=== PATIENT | male | born 1940 | race Caucasian/White ===

== ENCOUNTER 2021-09-09 16:04 | Inpatient (IN) ==
[2021-09-09 16:31] LABS: iSTAT Hemoglobin 13.6 g/dl (14.0-18.0); iSTAT Ionized Calcium 1.2 mmol/l (1.12-1.32); iSTAT Potassium 3.7 mmol/L (3.3-5.0)
[2021-09-09 16:35] LABS: Basophils # (auto) 0.05 K/uL (0-0.2); Basophils % (auto) 0.8 %; Eosinophils # (auto) 0.32 K/uL (0-0.5); Eosinophils % (auto) 5.4 %; Hemoglobin 12.9 g/dL (14.0-18.0); Lymphocytes # (auto) 2.03 K/uL (1.2-3.4); Lymphocytes % (auto) 34.2 %; Mean Corpuscular Hemoglobin 32.8 pg (25-34); Mean Corpuscular Hgb Conc 33.9 g/dL (32-36); Mean Corpuscular Volume 96.7 fL (80-100); Monocytes # (auto) 0.47 K/uL (0.11-0.59); Monocytes % (auto) 7.9 %; Neutrophils # (auto) 3.07 K/uL (1.4-6.5); Neutrophils % (auto) 51.7 %; Platelet Count 143 K/uL (130-400); RDW Coefficient of Variation 17.3 % (11.5-14.5); RDW Standard Deviation 60.8 fL (36.4-46.3); Red Blood Count 3.93 M/uL (4.7-6.1); White Blood Count 5.94 K/uL (4.8-10.8)
[2021-09-09 16:45] LABS: INR 1.1 (0.9-1.1); Partial Thromboplastin Time 27.6 Seconds (21.0-31.0); Prothrombin Time 11.3 Seconds (9.0-12.0)
[2021-09-09 17:01] LABS: Albumin Level 3.3 gm/dl (3.4-5.0); Bilirubin Direct 0.3 mg/dl (0-0.2); Bilirubin,Total 1.2 mg/dl (0.2-1.0); Calcium 9.3 mg/dl (8.5-10.1); Creatinine Clr Calc Pharmacy 23.3 ml/min; Est GFR (African American) 22.2 ml/min; Est GFR (Non-African American) 19.1 ml/min; Potassium 3.7 mmol/L (3.5-5.1); Total Protein 6.3 gm/dl (6.0-8.3)
[2021-09-09 18:21] LABS: Adenovirus F 40/41 PCR Not Detected (NotDetected); Astrovirus PCR Not Detected (NotDetected); Campylobacter PCR Not Detected (NotDetected); Clostridium diff Toxin A/B PCR Not Detected (NotDetected); Cryptosporidium PCR Not Detected (NotDetected); Cyclospora cayetanensis PCR Not Detected (NotDetected); Entamoeba histolytica PCR Not Detected (NotDetected); Enteroaggregative E.coli(EAEC) Not Detected (NotDetected); Enteropathogenic E.coli (EPEC) Not Detected (NotDetected); Enterotoxigenic E.coli (ETEC) Not Detected (NotDetected); Giardia lamblia PCR Not Detected (NotDetected); Norovirus GI/GII PCR Not Detected (NotDetected); Plesiomonas shigelloides PCR Not Detected (NotDetected); Rotavirus A PCR Not Detected (NotDetected); Salmonella PCR Not Detected (NotDetected); Sapovirus PCR Not Detected (NotDetected); Shiga-like Toxin E.coli (STEC) Not Detected (NotDetected); Shigella/Enteroinvasive E.coli Not Detected (NotDetected); Vibrio cholerae PCR Not Detected (NotDetected); Vibrio species PCR Not Detected (NotDetected); Yersinia enterocolitica PCR Not Detected (NotDetected)
--- NOTE | 2021-09-09 18:51 | History & Physical Report ---
Date of Service September 09, 2021 Assessment & Plan (1) BRBPR (bright red blood per rectum): (2) Anemia: (3) Chronic HFrEF (heart failure with reduced ejection fraction): (4) Stage 4 chronic kidney disease: (5) Hypertension: Plan: This is an 80-year-old male has significant past medical history of chronic HFrEF, nonischemic cardiomyopathy, presumed CAD, history of trifascicular block pacemaker placement in 2010 with device upgraded to biventricular rate responsi ve pacemaker 07/15/2020, HTN, HLD, CKD stage IV with left upper extremity AV fistula, T2DM who presents to ED after experiencing bright red blood per rectum since 1300. BRBPR Anemia due to acute blood loss admit to med tele pt had cscope on 08/27 with large polyp removed, also noted was sigmoid diverticula abd exam benign, no abd pain ? diverticular bleed vs related to polyp removal hgb 12.9, last hgb 04/10 14.0; likely related to blood loss from rectal bleeding NPO gentle IVF 60cc/hr x 1 L consult gastroenterology will place of IV PPI BID for now, but less likely UGIB hold asa for now type and cross and place 1 unit on hold, Blood consent signed in ED H/H @ 2200 Chronic HFrEF hx of trifascicular block s/p PPM HLD HLD continue statin and metoprolol hold asa, lasix for now daily weights euvolemic CKD-4 Acute on Chronic Renal insufficiency LUE fistula in place, baseline 2.4-2.7 bun/cr 62 and 2.95 gentle ivf in setting of renal disease/chf monitor bmp, avoid nephrotoxic agents holding lasix T2DM well controlled, last a1c 6.0 04/19/21 hold actos novolog correction factor protocol ordered DVT ppx: SCDS Dispo: med tele PCP: Andrae FULL CODE Pt was seen and examined in collaboration with Dr. Reece, please see addendum History of Present Illness Chief Complaint: BRBPR since 1300. Primary Care Provider: Anna Abebe MD This is an 80-year-old male has significant past medical history of chronic HFrEF, nonischemic cardiomyopathy, presumed CAD, history of trifascicular block pacemaker placement in 2010 with device upgraded to biventricular rate responsive pacemaker 07/15/2020, HTN, HLD, CKD stage IV with left upper extremity AV fistula, T2DM who presents to ED after experiencing bright red blood per rectum since 1300. He admits to multiple bowel movements with bright red blood. He denies dayne diarrhea, but did have stool mixed with blood. He denies pain with BM or abdominal pain. He had a colonoscopy 2 weeks ago in which a polyp was removed and it showed sigmoid diverticula. He has never had anything like this before. He denies hx of hemorrhoids or diverticulitis. He denies lightheaded, n/v/d, chest pain, sob, f/c/s, dysuria, increased urg/freq with urination, hematuria or melena. He takes a baby ASA daily, last dose yesterday. He does not use any OTC NSAIDS. He is not on any blood thinners. He denies hx of PUD. In ED patient remained hemodynamically stable. His admitting hemoglobin hematocrit was 12.9 and 38.0 respectively. His CMP was remarkable for elevated BUN 62, creatinine 2.95, glucose 128, total bilirubin 1.2, AST 42, alkaline phosphatase 237. His stool PCR was negative. He was typed and screened B positive. Allergies Allergy/AdvReac Type Severity Reaction Status Date / Time lisinopril Allergy Mild ALTERED Verified 08/27/21 09:44 KIDNEY FUNCTIONS Home Medications Medication Instructions Recorded Confirmed Type allopurinol 300 mg tablet 300 mg PO DAILY 09/09/21 09/09/21 History aspirin 81 mg tablet,delayed 81 mg PO DAILY 09/09/21 09/09/21 History release atorvastatin 40 mg tablet 40 mg PO HS 09/09/21 09/09/21 History furosemide 40 mg tablet 20 mg PO DAILY@1400 09/09/21 09/09/21 History furosemide 40 mg tablet 40 mg PO DAILY 09/09/21 09/09/21 History metoprolol succinate 25 mg 25 mg PO BID 09/09/21 09/09/21 History tablet,extended release 24 hr pioglitazone 15 mg tablet 15 mg PO DAILY 09/09/21 09/09/21 History Past Med/Surg History Medical History (Updated 09/09/21 @ 19:52 by Maribeth August PA-C) Chronic heart failure Diabetes mellitus, type 2 NIDDM GERD (gastroesophageal reflux disease) Gout Hearing deficit Hyperlipidemia Hypertension Pacemaker [employer]. 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 Yan. last checked remotely ~05/2021 Shortness of breath on exertion reason for inhaler Stage 4 chronic kidney disease Left UE AVF in place- not on dialysis yet Surgical History History of appendectomy History of colonoscopy History of pacemaker initially placed in 2010, and changed 06/2020 at [facility] Dr Ko History of tooth extraction most teeth removed S/P arteriovenous (AV) fistula creation 2008 left arm Family History (Updated 09/09/21 @ 19:50 by Maribeth August PA-C) Father , 59 Family history of diabetes mellitus Coronary heart disease Mother Cancer Other No family history of adverse response to anesthesia Social History Smoking Status: Former smoker Tobacco Type: Cigarettes Second Hand Exposure: No; Hx Alcohol Use: No Hx Substance Use: No Preferred Language: Finnish Communication Ability: Effective Chief Science Officer Required: No Beliefs That Will Affect Care: None Current Living Situation: Spouse Feels Safe at Home: Yes Assistive Devices: Denture - Upper, Glasses and Hearing Aid - Bilateral Review of Systems Review of Systems: All systems reviewed & are unremarkable except as noted in HPI & below Physical Exam Physical Exam: Please refer to Dr. Reece addendum for physical exam findings. Results & Data Results & Data ([facility]) Vital Signs (Past 12 Hours) Vital Signs Temp Pulse Resp BP Pulse Ox 09/09/21 16:19 95 09/09/21 16:10 37.0 C 77 15 110/77 96 COVID-19 Results Results COVID-19 Adm Lab Results: RBC 3.93 M/uL (4.7-6.1) L 09/09/21 WBC 5.94 K/uL (4.8-10.8) 09/09/21 Hgb 12.9 g/dL (14.0-18.0) L 09/09/21 Hct 38.0 % (42-52) L 09/09/21 Plt Count 143 K/uL (130-400) 09/09/21 Neutrophils (%) (Auto) 51.7 % 09/09/21 Lymphocytes (%) (Auto) 34.2 % 09/09/21 Monocytes # (Auto) 0.47 K/uL (0.11-0.59) 09/09/21 Eosinophils # (Auto) 0.32 K/uL (0-0.5) 09/09/21 Immature Granulocyte % (Auto) 0.0 % 09/09/21 Neutrophils # (Auto) 3.07 K/uL (1.4-6.5) 09/09/21 Lymphocytes # (Auto) 2.03 K/uL (1.2-3.4) 09/09/21 Monocytes # (Auto) 0.47 K/uL (0.11-0.59) 09/09/21 Eosinophils # (Auto) 0.32 K/uL (0-0.5) 09/09/21 Basophils # (Auto) 0.05 K/uL (0-0.2) 09/09/21 Immature Granulocyte # (Auto) 0.00 K/uL (0.00-0.02) 09/09/21 Na 137 mmol/L (136-145) 09/09/21 K 3.7 mmol/L (3.5-5.1) 09/09/21 Cl 102 mmol/L (98-107) 09/09/21 CO2 27 mmol/L (21-32) 09/09/21 Anion Gap 8 (3-11) 09/09/21 BUN 62 mg/dl (6-23) H 09/09/21 Creatinine 2.95 mg/dl (0.6-1.4) H 09/09/21 BUN/Creatinine Ratio 21.0 (10-20) H 09/09/21 Glucose Level 128 mg/dl (70-99(Fasting)) H 09/09/21 Ca 9.3 mg/dl (8.5-10.1) 09/09/21 Total Bilirubin 1.2 mg/dl (0.2-1.0) H 09/09/21 Direct Bilirubin 0.3 mg/dl (0-0.2) H 09/09/21 AST/SGOT 42 U/L (13-39) H 09/09/21 ALT/SGPT 25 U/L (7-52) 09/09/21 Alkaline Phosphatase 237 U/L (34-104) H 09/09/21 Total Protein 6.3 gm/dl (6.0-8.3) 09/09/21 Albumin 3.3 gm/dl (3.4-5.0) L 09/09/21 PTT 27.6 Seconds (21.0-31.0) 09/09/21 INR 1.1 (0.9-1.1) 09/09/21 SARS-CoV-2, RNA, NAAT NEGATIVE (NEGATIVE) 09/09/21 Code Status & VTE Plan Code Status FULL CODE VTE Prophylaxis Plan VTE Prophylaxis will be ordered: Yes Supervising Physician Co-Signing Physician Notes Is an 80-year-old male with history of CHF, CKD stage IV, hypertension, hyperlipidemia, diabetes and other medical problems presents with history of bright red rectal bleeding since today afternoon. He states having multiple faye wel movements but denies any abdominal pain, nausea, vomiting, fever, chills. He denies any NSAIDs use. He is currently not on any anticoagulants. He recently had colonoscopy and had polyps resection and was noted to have sigmoid diverticulosis. Please review HPI for complete details of presentation. Blood work showed hemoglobin 12.9, hematocrit 38, platelet count 143, INR 1.1, sodium 138, potassium 3.7, BUN 52, creatinine 2.9, glucose 128, total bilirubin 1.2, direct bilirubin 1.3, AST 42, alkaline phosphatase 237. Stool studies are negative for any infection. COVID screen is negative. Physical Exam: Vitals signs as noted above General Appearance:Moderately built and nourished, no apparent distress Head: normocephalic, Atraumatic Eyes: normal inspection, EOMI Neck: supple, Trachea midline Respiratory/Chest: Normal breath sounds, CTA, No accessory muscle use Cardiovascular: S1, S2, No murmur Abdomen/GI:Soft, mild suprapubic tender, Bowel sounds present Extremities/Musculoskeletal:normal inspection, 2+ B/L LE edema Neurologic/Psych:AAOX3, grossly no focal neurological deficits Skin: normal color, warm Rectal Bleeding Acute on chronic blood loss anemia Likely diverticular bleed Hold aspirin Type and cross, monitor H&H Transfuse as needed Blood consent obtained in ED Gentle IV fluids GI consulted Although no indication for PPI, given elevated BUN we will add PPI for now Monitor volume status closely. Avoid nephrotoxic agents as able. Agree with holding diuretics. Consider imaging studies if patient develops abdominal pain. Avoid anticoagulants. I personally reviewed the record. Patient is interviewed and examined at bedside. Patient's care is coordinated with Maribeth August PA-C. Please refer to the documentation above for details of patient's presentation and for discussion of other issues.
[2021-09-09] MEDS ORDERED: DEXTROSE 50% 50 ML SYRINGE IV PRN (21:17)
[2021-09-09] MEDS ORDERED: ACETAMINOPHEN 325 MG TAB PO PRN (21:17)
[2021-09-09] MEDS ORDERED: GLUCOSE 40% GEL 15 GM TUBE PO PRN (21:17)
[2021-09-09] MEDS ORDERED: ATORVASTATIN 40 MG TAB PO SCH (21:17)
[2021-09-09] MEDS ORDERED: SODIUM CHLORIDE 0.9% 1000ML 1,000 ML IV SCH (21:17)
[2021-09-09] MEDS ORDERED: GLUCAGON FOR INJ 1 MG VIAL SQ PRN (21:17)
[2021-09-09] MEDS ORDERED: GLUCOSE 10 TAB/TUBE PO PRN (21:17)
[2021-09-09] MEDS ORDERED: ALUMINUM/MAGNESIUM SUSP 30 ML UDC PO PRN (21:17)
[2021-09-09] MEDS ORDERED: SODIUM CHLORIDE 0.9% 250 ML IV PRN (21:17)
[2021-09-09] MEDS ORDERED: CARBOHYDRATES FOR HYPOGLYCEMIA PO PRN (21:17)
[2021-09-09] MEDS ORDERED: ONDANSETRON INJ 2 MG/ML 2 ML VIAL IV PRN (21:17)
--- NOTE | 2021-09-09 21:27 | Emergency Department Note ---
History of Present Illness General Chief complaint: Rectal Bleed Time Seen by Provider: 09/09/21 16:19 History of Present Illness Provider Complaint: + gross hematochezia Onset (ago): 2 hour(s) Pain Consistency: + constant Current Pain Intensity: 0 Relieved By: + none Exacerbated By: + bowel movement Context: + history of GI bleed; no rectal trauma, no alcohol abuse or no known esophageal varices Associated symptoms: no abdominal pain, no nausea, no vomiting, no epistaxis, no fever, no chills, no headaches, no loss of appetite, no rash, no other bleeding, no shortness of breath, no syncope or no weakness Home Medications Medication Instructions Recorded Confirmed Type allopurinol 300 mg tablet 300 mg PO DAILY 09/09/21 09/09/21 History aspirin 81 mg tablet,delayed 81 mg PO DAILY 09/09/21 09/09/21 History release atorvastatin 40 mg tablet 40 mg PO HS 09/09/21 09/09/21 History furosemide 40 mg tablet 20 mg PO DAILY@1400 09/09/21 09/09/21 History furosemide 40 mg tablet 40 mg PO DAILY 09/09/21 09/09/21 History metoprolol succinate 25 mg 25 mg PO BID 09/09/21 09/09/21 History tablet,extended release 24 hr pioglitazone 15 mg tablet 15 mg PO DAILY 09/09/21 09/09/21 History Allergies Allergy/AdvReac Type Severity Reaction Status Date / Time lisinopril Allergy Mild ALTERED Verified 08/27/21 09:44 KIDNEY FUNCTIONS Past Med/Surg History Medical History Chronic heart failure Diabetes mellitus, type 2 NIDDM GERD (gastroesophageal reflux disease) Gout Hearing deficit Hyperlipidemia Hypertension Pacemaker Medtronic. 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 Yan. last checked remotely ~05/2021 Shortness of breath on exertion reason for inhaler Stage 4 chronic kidney disease Left UE AVF in place- not on dialysis yet Surgical History History of appendectomy History of colonoscopy History of pacemaker initially placed in 2010, and changed 06/2020 at [facility] Dr Ko History of tooth extraction most teeth removed S/P arteriovenous (AV) fistula creation 2009 left arm Family History Father , 59 Family history of diabetes mellitus Coronary heart disease Mother Cancer Other No family history of adverse response to anesthesia Social History Smoking Status: Former smoker Tobacco Type: Cigarettes Second Hand Exposure: No; Hx Alcohol Use: No Hx Substance Use: No Preferred Language: [place] Communication Ability: Effective Client Solutions Specialist Required: No Beliefs That Will Affect Care: None Current Living Situation: Spouse Feels Safe at Home: Yes Assistive Devices: Denture - Upper, Glasses and Hearing Aid - Bilateral Review of Systems A total of 10 systems reviewed and were otherwise negative Physical Exam Vital Signs: Vital Signs - 24 hr 09/09/21 16:10 09/09/21 16:19 09/09/21 18:00 Temperature 37.0 C Temperature Source Oral Pulse Rate 77 74 Respiratory Rate 15 13 Respiratory Effort / Characteristics Non-Labored Sponta neous Respiratory Depth Normal Respiratory Patter n Regular Blood Pressure 110/77 130/90 Blood Pressure Vanesa n 88 103 Pulse Oximetry 96 95 97 Oxygen Delivery Me thod Room Air Room Air Sepsis Recent Feve r Within 48 Hours No Sepsis New/Unexpla ined Change in Men chau Status N/A Sepsis Action Take n by Nursing No Action Required Physical Exam: Physical Exam GENERAL: Patient had a large bright red bloody bowel movement in the hospital bed. HENT: Exam performed. - Head: Normocephalic and atraumatic. - Right Ear: External ear normal. No mastoid tenderness. - Left Ear: External ear normal. No mastoid tenderness. - Mouth/Throat: The oropharynx is clear and moist. No trismus in the jaw. No dental abscesses or uvula swelling. No oropharyngeal exudate or tonsillar abscesses. EYES: Conjunctivae and EOM are normal. Pupils are equal, round, and reactive to light. Right eye exhibits no discharge. Left eye exhibits no discharge. No scleral icterus. NECK: Normal range of motion. Neck supple. No JVD present. No spinous process tenderness present. No carotid bruit present. No rigidity. No tracheal deviation and normal range of motion present. No Brudzinski's sign and no Kernig's sign noted. CV: Normal rate, regular rhythm, normal heart sounds and intact distal pulses. There is no peripheral edema. Palpable radial pulses bue. PULM/CHEST: Effort normal and breath sounds normal. No respiratory distress. No stridor. He has no wheezes. He has no rales. - Chest Wall: He exhibits no tenderness. ABD: The abdomen is soft. Bowel sounds are normal. He has no distension. No mass is present. There is no tenderness. There is no rebound, no guarding, no Jacob's sign and no tenderness at McBurney's point. Rovsig negative. MUSC/SKEL: Normal range of motion. There is no peripheral edema, tenderness or deformity. LYMPH: No cervical adenopathy. NEURO: He is alert and oriented to person, place, and time. He has normal strength. No cranial nerve deficit or sensory deficit. Coordination and gait normal. GCS eye subscore is 4. GCS verbal subscore is 5. GCS motor subscore is 6. Cerebellar tests wnl. SKIN: Skin is warm and dry. He is not diaphoretic. PSYCH: He has a normal mood and affect. Behavior is normal. Judgment and thought content normal. Course Course 1618: The patient was evaluated in room C7. A complete history and physical exam was performed Cardiac monitoring: An order was placed for continuous cardiac monitoring. The monitor shows a rate of 70 with paced rhythm EMR reviewed. Patient had a colonoscopy done on August 27, approximately 2 weeks ago. At that time the patient had a 30 mm polyp removed with hot snare and was found to have diverticulosis. Pathology report reviewed and it showed a villous adenoma with no high-grade dysplasia and carcinoma 1745: Vital signs stable. Labs within normal limits. Patient still having bloody bowel movements. Patient is hemodynamically stable but given his elderly age and continued hematochezia the patient was brought in for observation under hospitalist team. Medical Decision Making Laboratory Data Result diagrams: 09/09/21 16:14 09/09/21 16:14 Lab Results 09/09/21 09/09/21 09/09/21 Range/Units 16:14 16:14 16:14 WBC 5.94 (4.8-10.8) K/uL RBC 3.93 L (4.7-6.1) M/uL Hgb 12.9 L (14.0-18.0) g/dL POC Hgb (14.0-18.0) g/dl Hct 38.0 L (42-52) % POC Hct (42-52) % MCV 96.7 (80-100) fL MCH 32.8 (25-34) pg MCHC 33.9 (32-36) g/dL RDW Std Deviation 60.8 H (36.4-46.3) fL RDW Coeff of Armani 17.3 H (11.5-14.5) % Plt Count 143 (130-400) K/uL MPV 12.0 H (7.4-10.4) fL Immature Gran % (Auto) 0.0 % Neut % (Auto) 51.7 % Lymph % (Auto) 34.2 % Otoe % (Auto) 7.9 % Eos % (Auto) 5.4 % Baso % (Auto) 0.8 % Neut # (Auto) 3.07 (1.4-6.5) K/uL Lymph # (Auto) 2.03 (1.2-3.4) K/uL Otoe # (Auto) 0.47 (0.11-0.59) K/uL Eos # (Auto) 0.32 (0-0.5) K/uL Baso # (Auto) 0.05 (0-0.2) K/uL Immature Gran # (Auto) 0.00 (0.00-0.02) K/uL PT 11.3 (9.0-12.0) Seconds INR 1.1 (0.9-1.1) APTT 27.6 (21.0-31.0) Seconds PTT Ratio 1.0 POC Sodium (135-144) mmol/L Sodium (136-145) mmol/L POC Potassium (3.3-5.0) mmol/L Potassium (3.5-5.1) mmol/L POC Chloride (101-112) mmol/L Chloride (98-107) mmol/L Carbon Dioxide (21-32) mmol/L POC Total CO2 (24-31) mmol/L Anion Gap (3-11) POC Anion Gap (16-25) mmol/L POC BUN (7-18) mg/dl BUN (6-23) mg/dl Creatinine (0.6-1.4) mg/dl POC Creatinine (0.6-1.3) mg/dl Est Cr Clr Drug Dosing ml/min Est GFR ( Amer) ml/min Est GFR (Non-Af Amer) ml/min BUN/Creatinine Ratio (10-20) Glucose (70-99(Fasting)) mg/dl POC Glucose (other) (70-99) mg/dl Calcium (8.5-10.1) mg/dl POC Ioniz Calcium Onesimo (1.12-1.32) mmol/l Total Bilirubin (0.2-1.0) mg/dl Direct Bilirubin (0-0.2) mg/dl AST (13-39) U/L ALT (7-52) U/L Alkaline Phosphatase (34-104) U/L Total Protein (6.0-8.3) gm/dl Albumin (3.4-5.0) gm/dl Lipase (11-82) U/L Stl C. cayetanensis PCR (NotDetected) Stool Rotavirus A PCR (NotDetected) Stl Adenov F 40/41 PCR (NotDetected) Stool Astrovirus (PCR) (NotDetected) Stool Campylobacter PCR (NotDetected) Stl C. diff Tox A/B PCR (NotDetected) Stool Cryptosporidium PCR (NotDetected) Stl E.coli Shiga Tox PCR (NotDetected) Stl Enterotoxigenic E PCR (NotDetected) Stool EPEC (PCR) (NotDetected) Stool EAEC (PCR) (NotDetected) Stl E. histolytica PCR (NotDetected) Stool Giardia Lamblia PCR (NotDetected) Stool Salmonella PCR (NotDetected) Stool Sapovirus (PCR) (NotDetected) Stl P. shigelloides PCR (NotDetected) Stl Shigella/EIEC PCR (NotDetected) St Y.enterocolitica PCR (NotDetected) Stool Vibrio (PCR) (NotDetected) Stl Vibrio cholerae PCR (NotDetected) Stl Norovirus GI/GII PCR (NotDetected) SARS-CoV-2, RNA, NAAT (NEGATIVE) Blood Type B Positive Antibody Screen NEGATIVE Crossmatch See Detail 09/09/21 09/09/21 09/09/21 Range/Units 16:14 16:14 16:19 WBC (4.8-10.8) K/uL RBC (4.7-6.1) M/uL Hgb (14.0-18.0) g/dL POC Hgb 13.6 L (14.0-18.0) g/dl Hct (42-52) % POC Hct 40 L (42-52) % MCV (80-100) fL MCH (25-34) pg MCHC (32-36) g/dL RDW Std Deviation (36.4-46.3) fL RDW Coeff of Armani (11.5-14.5) % Plt Count (130-400) K/uL MPV (7.4-10.4) fL Immature Gran % (Auto) % Neut % (Auto) % Lymph % (Auto) % Otoe % (Auto) % Eos % (Auto) % Baso % (Auto) % Neut # (Auto) (1.4-6.5) K/uL Lymph # (Auto) (1.2-3.4) K/uL Otoe # (Auto) (0.11-0.59) K/uL Eos # (Auto) (0-0.5) K/uL Baso # (Auto) (0-0.2) K/uL Immature Gran # (Auto) (0.00-0.02) K/uL PT (9.0-12.0) Seconds INR (0.9-1.1) APTT (21.0-31.0) Seconds PTT Ratio POC Sodium 138 (135-144) mmol/L Sodium 137 (136-145) mmol/L POC Potassium 3.7 (3.3-5.0) mmol/L Potassium 3.7 (3.5-5.1) mmol/L POC Chloride 101 (101-112) mmol/L Chloride 102 (98-107) mmol/L Carbon Dioxide 27 (21-32) mmol/L POC Total CO2 25 (24-31) mmol/L Anion Gap 8 (3-11) POC Anion Gap 16.0 (16-25) mmol/L POC BUN 52 H (7-18) mg/dl BUN 62 H (6-23) mg/dl Creatinine 2.95 H (0.6-1.4) mg/dl POC Creatinine 3.0 H (0.6-1.3) mg/dl Est Cr Clr Drug Dosing 23.3 ml/min Est GFR ( Amer) 22.2 ml/min Est GFR (Non-Af Amer) 19.1 ml/min BUN/Creatinine Ratio 21.0 H (10-20) Glucose 128 H (70-99(Fasting)) mg/dl POC Glucose (other) 128 H (70-99) mg/dl Calcium 9.3 (8.5-10.1) mg/dl POC Ioniz Calcium Onesimo 1.20 (1.12-1.32) mmol/l Total Bilirubin 1.2 H (0.2-1.0) mg/dl Direct Bilirubin 0.3 H (0-0.2) mg/dl AST 42 H (13-39) U/L ALT 25 (7-52) U/L Alkaline Phosphatase 237 H (34-104) U/L Total Protein 6.3 (6.0-8.3) gm/dl Albumin 3.3 L (3.4-5.0) gm/dl Lipase 68 Cancelled (11-82) U/L Stl C. cayetanensis PCR (NotDetected) Stool Rotavirus A PCR (NotDetected) Stl Adenov F 40/41 PCR (NotDetected) Stool Astrovirus (PCR) (NotDetected) Stool Campylobacter PCR (NotDetected) Stl C. diff Tox A/B PCR (NotDetected) Stool Cryptosporidium PCR (NotDetected) Stl E.coli Shiga Tox PCR (NotDetected) Stl Enterotoxigenic E PCR (NotDetected) Stool EPEC (PCR) (NotDetected) Stool EAEC (PCR) (NotDetected) Stl E. histolytica PCR (NotDetected) Stool Giardia Lamblia PCR (NotDetected) Stool Salmonella PCR (NotDetected) Stool Sapovirus (PCR) (NotDetected) Stl P. shigelloides PCR (NotDetected) Stl Shigella/EIEC PCR (NotDetected) St Y.enterocolitica PCR (NotDetected) Stool Vibrio (PCR) (NotDetected) Stl Vibrio cholerae PCR (NotDetected) Stl Norovirus GI/GII PCR (NotDetected) SARS-CoV-2, RNA, NAAT (NEGATIVE) Blood Type Antibody Screen Crossmatch 09/09/21 09/09/21 Range/Units 16:41 17:40 WBC (4.8-10.8) K/uL RBC (4.7-6.1) M/uL Hgb (14.0-18.0) g/dL POC Hgb (14.0-18.0) g/dl Hct (42-52) % POC Hct (42-52) % MCV (80-100) fL MCH (25-34) pg MCHC (32-36) g/dL RDW Std Deviation (36.4-46.3) fL RDW Coeff of Armani (11.5-14.5) % Plt Count (130-400) K/uL MPV (7.4-10.4) fL Immature Gran % (Auto) % Neut % (Auto) % Lymph % (Auto) % Otoe % (Auto) % Eos % (Auto) % Baso % (Auto) % Neut # (Auto) (1.4-6.5) K/uL Lymph # (Auto) (1.2-3.4) K/uL Otoe # (Auto) (0.11-0.59) K/uL Eos # (Auto) (0-0.5) K/uL Baso # (Auto) (0-0.2) K/uL Immature Gran # (Auto) (0.00-0.02) K/uL PT (9.0-12.0) Seconds INR (0.9-1.1) APTT (21.0-31.0) Seconds PTT Ratio POC Sodium (135-144) mmol/L Sodium (136-145) mmol/L POC Potassium (3.3-5.0) mmol/L Potassium (3.5-5.1) mmol/L POC Chloride (101-112) mmol/L Chloride (98-107) mmol/L Carbon Dioxide (21-32) mmol/L POC Total CO2 (24-31) mmol/L Anion Gap (3-11) POC Anion Gap (16-25) mmol/L POC BUN (7-18) mg/dl BUN (6-23) mg/dl Creatinine (0.6-1.4) mg/dl POC Creatinine (0.6-1.3) mg/dl Est Cr Clr Drug Dosing ml/min Est GFR ( Amer) ml/min Est GFR (Non-Af Amer) ml/min BUN/Creatinine Ratio (10-20) Glucose (70-99(Fasting)) mg/dl POC Glucose (other) (70-99) mg/dl Calcium (8.5-10.1) mg/dl POC Ioniz Calcium Onesimo (1.12-1.32) mmol/l Total Bilirubin (0.2-1.0) mg/dl Direct Bilirubin (0-0.2) mg/dl AST (13-39) U/L ALT (7-52) U/L Alkaline Phosphatase (34-104) U/L Total Protein (6.0-8.3) gm/dl Albumin (3.4-5.0) gm/dl Lipase (11-82) U/L Stl C. cayetanensis PCR Not Detected (NotDetected) Stool Rotavirus A PCR Not Detected (NotDetected) Stl Adenov F 40/41 PCR Not Detected (NotDetected) Stool Astrovirus (PCR) Not Detected (NotDetected) Stool Campylobacter PCR Not Detected (NotDetected) Stl C. diff Tox A/B PCR Not Detected (NotDetected) Stool Cryptosporidium PCR Not Detected (NotDetected) Stl E.coli Shiga Tox PCR Not Detected (NotDetected) Stl Enterotoxigenic E PCR Not Detected (NotDetected) Stool EPEC (PCR) Not Detected (NotDetected) Stool EAEC (PCR) Not Detected (NotDetected) Stl E. histolytica PCR Not Detected (NotDetected) Stool Giardia Lamblia PCR Not Detected (NotDetected) Stool Salmonella PCR Not Detected (NotDetected) Stool Sapovirus (PCR) Not Detected (NotDetected) Stl P. shigelloides PCR Not Detected (NotDetected) Stl Shigella/EIEC PCR Not Detected (NotDetected) St Y.enterocolitica PCR Not Detected (NotDetected) Stool Vibrio (PCR) Not Detected (NotDetected) Stl Vibrio cholerae PCR Not Detected (NotDetected) Stl Norovirus GI/GII PCR Not Detected (NotDetected) SARS-CoV-2, RNA, NAAT NEGATIVE (NEGATIVE) Blood Type Antibody Screen Crossmatch [facility] Narrative 1619: The patient was evaluated in room C7. A complete history and physical exam was performed Cardiac monitoring: An order was placed for continuous cardiac monitoring. The monitor shows a rate of 70 with paced rhythm EMR reviewed. Patient had a colonoscopy done on August 27, approximately 2 weeks ago. At that time the patient had a 30 mm polyp removed with hot snare and was found to have diverticulosis. Pathology report reviewed and it showed a villous adenoma with no high-grade dysplasia and carcinoma 1745: Vital signs stable. Labs within normal limits. Patient still having bloody bowel movements. Patient is hemodynamically stable but given his elderly age and continued hematochezia the patient was brought in for observation under hospitalist team. Impression & Plan Hematochezia Discharge Plan Visit Data Chief Complaint: Rectal Bleed Discharge Problem: Hematochezia Patient Disposition: Being Evaluated by Hospitalist Discharge Instructions Interventions: ED Discharge Assessment Last Done: 09/09/21 21:18
[2021-09-09 22:13] LABS: Hematocrit (blood only) 34.6 % (42-52)
[2021-09-09] MEDS: PANTOprazole 40 MG in SYRINGE 0 ML IV SCH (23:31)
[2021-09-09] MEDS: INSULIN ASPART PER UNIT SC SCH (23:32)
[2021-09-09] MEDS: METOPROLOL SUCC 25MG EXT REL TAB PO SCH (23:32)
[2021-09-10 07:12] LABS: Mean Corpuscular Hgb Conc 33.8 g/dL (32-36)
[2021-09-10 07:22] LABS: Hematocrit (blood only) 31.7 % (42-52); Hemoglobin 10.7 g/dL (14.0-18.0); Mean Corpuscular Hemoglobin 32.5 pg (25-34); Mean Corpuscular Volume 96.4 fL (80-100); RDW Coefficient of Variation 17.2 % (11.5-14.5); RDW Standard Deviation 61.7 fL (36.4-46.3); Red Blood Count 3.29 M/uL (4.7-6.1); White Blood Count 6.71 K/uL (4.8-10.8)
[2021-09-10 07:30] LABS: Albumin Globulin Ratio 1.3 (0.9-2); BUN Creatinine Ratio 20.2 (10-20); Bilirubin,Total 1.3 mg/dl (0.2-1.0); Calcium 8.9 mg/dl (8.5-10.1); Creatinine Clr Calc Pharmacy 22.3 ml/min; Globulin 2.3 gm/dl (2.5-4.0); Potassium 3.8 mmol/L (3.5-5.1); Total Protein 5.3 gm/dl (6.0-8.3)
[2021-09-10 07:36] LABS: Platelet Count 119 K/uL (130-400)
[2021-09-10 07:37] LABS: Basophils # (auto) 0.05 K/uL (0-0.2); Basophils % (auto) 0.7 %; Eosinophils # (auto) 0.22 K/uL (0-0.5); Eosinophils % (auto) 3.3 %; Immature Granulocytes # (auto) 0.01 K/uL (0.00-0.02); Immature Granulocytes % (auto) 0.1 %; Lymphocytes # (auto) 1.79 K/uL (1.2-3.4); Lymphocytes % (auto) 26.7 %; Monocytes # (auto) 0.53 K/uL (0.11-0.59); Monocytes % (auto) 7.9 %; Neutrophils # (auto) 4.11 K/uL (1.4-6.5); Neutrophils % (auto) 61.3 %; Platelet Estimate Decreased (Normal)
[2021-09-10 08:09] LABS: Estimated Average Glucose 131 mg/dl; Hemoglobin A1C 6.2 % (4.5-5.6)
[2021-09-10] MEDS: INSULIN ASPART PER UNIT SC SCH ×3 (08:14→16:57)
[2021-09-10] MEDS: PANTOprazole 40 MG in SYRINGE 0 ML IV SCH (08:17)
[2021-09-10] MEDS: METOPROLOL SUCC 25MG EXT REL TAB PO SCH (08:19)
[2021-09-10] MEDS ORDERED: allopurinoL 300 MG TAB PO SCH (09:00)
--- NOTE | 2021-09-10 09:30 | Gastrointestinal Consultation ---
Date of Consultation September 10, 2021 Assessment & Plan (1) Hematochezia: Continue to hold ASA. Keep NPO x meds w sip. Plan for flex sig this afternoon. 1L tap water enema x 2 prior. Further recommendations at time of Flex sig completion. Supervising Physician Co-Signing Physician Notes I performed a history and physical examination of the patient today, including specifically on physical exam - soft abdomen. I have discussed the patient's management with the advanced practitioner. Please refer to the nurse practitioner's note for the documented findings and plan of care. Suspected post polypectomy bleeding. plan for Flex sig History of Present Illness Reason for Consultation: Rectal Bleeding Requesting Physician: Carly August PA-C Attending Physician: Bárbara Pham, History of Present Illness Mr. Kevon Charles is an 80 yr old male pt of Dr. Andrae rasmussen a hx of CHF, CKD stage IV, hypertension, hyperlipidemia, DM who presented to the ED yesterday because he had several episodes of painless red loose/liquid BMs with some fecal material. He had undergone colonoscopy on 08/27/21 with removal of a 3cm rectal polyp w a hot snare. Mild sigmoid diverticulosis was also noted. He did well after that until yesterday. Hb on arrival 12.9->10.7. BUN is elevated at 60 but he has CKD4 and Cr is also high at 2.97. He is hemodynamically stable, and denies any CP, weakness, diz ziness, abd pain, N/V. He is NPO. He is not on any anticoagulants but does take ASA 81mg daily which has been held. Allergies Allergy/AdvReac Type Severity Reaction Status Date / Time lisinopril Allergy Mild ALTERED Verified 08/27/21 09:44 KIDNEY FUNCTIONS Home Medications Medication Instructions Recorded Confirmed Type allopurinol 300 mg tablet 300 mg PO DAILY 09/09/21 09/09/21 History aspirin 81 mg tablet,delayed 81 mg PO DAILY 09/09/21 09/10/21 History release atorvastatin 40 mg tablet 40 mg PO HS 09/09/21 09/09/21 History furosemide 40 mg tablet 20 mg PO DAILY@1400 09/09/21 09/09/21 History furosemide 40 mg tablet 40 mg PO DAILY 09/09/21 09/09/21 History metoprolol succinate 25 mg 25 mg PO BID 09/09/21 09/09/21 History tablet,extended release 24 hr pioglitazone 15 mg tablet 15 mg PO DAILY 09/09/21 09/09/21 History Patient History Medical History Chronic heart failure Diabetes mellitus, type 2 NIDDM GERD (gastroesophageal reflux disease) Gout Hearing deficit Hyperlipidemia Hypertension Pacemaker Medtronic. 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 Yan. last checked remotely ~05/2021 Shortness of breath on exertion reason for inhaler Stage 4 chronic kidney disease Left UE AVF in place- not on dialysis yet Surgical History History of appendectomy History of colonoscopy History of pacemaker initially placed in 2010, and changed 06/[address] [facility] [address] Ko History of tooth extraction most teeth removed S/P arteriovenous (AV) fistula creation 2008 left arm Family History Father , 59 Family history of diabetes mellitus Coronary heart disease Mother Cancer Other No family history of adverse response to anesthesia Social History Smoking Status: Former smoker Tobacco Type: Cigarettes Cigarettes Per Day: 9; Smoking End Date: 1974; Second Hand Exposure: No; Hx Alcohol Use: No Hx Substance Use: No Preferred Language: Indonesian Communication Ability: Effective Revenue Inspector Required: No Beliefs That Will Affect Care: None Current Living Situation: Spouse Current Living Situation Comment: Lives at home with spouse can drive and cook his does the shopping Other Information That Helps Us Care for You: No Feels Safe at Home: Yes Safety Concerns: Feels Safe At This Time Assistive Devices: Assistive Devices Comment: Stair lift outside of home for outside steps Review of Systems Review of Systems: ROS: Gen: Denies weakness, fevers, weight loss Eyes: No eye redness, or pain, no recent vision changes Resp: No SOB, no cough Cardio: No palpitations/irregular beats, no chest pain GI: As per HPI otherwise (-). : Denies pain on urination Skin: No jaundice, itching or new rashes + chronic hearing loss Physical Exam Constitutional: well developed and cooperative Eyes: PERRL, conjunctivae normal, anicteric sclerae ENMT: external ear and nose normal, oropharynx normal Neck: trachea midline, no thyromegaly Respiratory: normal respiratory effort, lungs clear to auscultation Cardiovascular: RRR, no murmur, no edema Gastrointestinal (Abdomen): normal bowel sounds, soft, nontender, no hepatosplenomegaly Percussion/Palpation: + abdomen tender (Mild diffuse adbdominal msk tenderness. No signs of acute abdomen.) and abdomen soft; no guarding and abdomen not rigid Skin: no rashes, warm and dry normal turgor Neurologic: PERRL, EOMI, accommodation nl, no face palsy, no dysarthria awake; not confused Psychiatric: A+Ox3, euthymic affect Lymphatic: no cervical or axillary lymphadenopathy Results & Data ([facility]) Vital Signs (Past 12 Hours) Vital Signs Temp Pulse Pulse Resp BP BP Pulse Ox 09/10/21 07:38 36.4 C L 80 16 122/78 90 09/10/21 03:55 36.3 C L 70 16 92/55 L 98 09/09/21 23:39 74 99/67 L 09/09/21 23:10 80 09/09/21 22:48 36.3 C L 72 18 104/72 97 09/09/21 21:31 88 24 96/65 L 96 Laboratory Results WBC 6, Hb 10, Hct 31, Plts 119, Na 137, K 3.7, Cl 102, CO2 27, BUN 60, Cr 2.97, Plts 128.
--- NOTE | 2021-09-10 10:59 | Anesthesiology Consultation ---
Date of Service September 10, 2021 Assessment & Plan Chart Review Chart Review: Acceptable Risk for Surgery, Patient NOT seen in Pre Admission Testing and computer laboratory technician initiated Consults Requested none History Surgery Operation Date: 09/10/21 15:30 Proposed Procedures p Flexible Sigmoidoscopy Dr Hagen - Neri Hagen MD Height/Weight Height: 5 ft 8 in Weight: 96.4 kg Allergies Allergy/AdvReac Type Severity Reaction Status Date / Time lisinopril Allergy Mild ALTERED Verified 08/27/21 09:44 KIDNEY FUNCTIONS Medications Home Medications Medication Instructions Recorded Confirmed Last Taken allopurinol 300 mg tablet 300 mg PO DAILY 09/09/21 09/09/21 Unknown aspirin 81 mg tablet,delayed 81 mg PO DAILY 09/09/21 09/09/21 Unknown release atorvastatin 40 mg tablet 40 mg PO HS 09/09/21 09/09/21 Unknown furosemide 40 mg tablet 20 mg PO DAILY@1400 09/09/21 09/09/21 Unknown furosemide 40 mg tablet 40 mg PO DAILY 09/09/21 09/09/21 Unknown metoprolol succinate 25 mg 25 mg PO BID 09/09/21 09/09/21 Unknown tablet,extended release 24 hr pioglitazone 15 mg tablet 15 mg PO DAILY 09/09/21 09/09/21 Unknown Active Medications Generic Name Dose Route Start Last Admin Trade Name Alcidesq PRN Reason Stop Dose Admin Allopurinol 300 mg 09/10/21 09:00 09/10/21 08:19 Allopurinol 300 Mg Tab PO 10/10/21 08:59 300 mg DAILY FAY Administration Atorvastatin Calcium 40 mg 09/09/21 21:17 09/09/21 23:31 Atorvastatin 40 Mg Tab PO 10/09/21 21:16 40 mg HS FAY Administration Pantoprazole Sodium 40 mg/ 10 mls @ 5 mls/min 09/09/21 21:17 09/10/21 08:17 Syringe IV 10/09/21 21:16 5 mls/min BID FAY Administration Sodium Chloride 1,000 mls @ 60 mls/hr 09/09/21 21:17 09/09/21 23:31 Nss 1000ml IV 09/10/21 13:56 60 mls/hr .[id number] FAY Administration Insulin Aspart 0 units 09/09/21 21:17 09/10/21 08:14 Insulin Aspart Per Unit SC 10/09/21 21:16 Not Given ACHS FAY Metoprolol Succinate 25 mg 09/09/21 21:17 09/10/21 08:19 Metoprolol Succ 25mg Ext Rel Tab PO 10/09/21 21:16 25 mg BID FAY Administration Past Medical History Medical History Chronic heart failure Diabetes mellitus, type 2 NIDDM GERD (gastroesophageal reflux disease) Gout Hearing deficit Hyperlipidemia Hypertension Pacemaker [employer]. 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 Yan. last checked remotely ~05/2021 Shortness of breath on exertion reason for inhaler Stage 4 chronic kidney disease Left UE AVF in place- not on dialysis yet Past Family History Family History Father , 59 Family history of diabetes mellitus Coronary heart disease Mother Cancer Other No family history of adverse response to anesthesia Past Surgical History Surgical History History of appendectomy History of colonoscopy History of pacemaker initially placed in 2010, and changed 06/2020 at [facility] Dr Ko History of tooth extraction most teeth removed S/P arteriovenous (AV) fistula creation 2009 left arm Social History Smoking Status: Former smoker tobacco type: cigarettes Smoking cigarettes per day: 9 Smoking End Date: 1974 Hx Alcohol Use: No Alcohol type: beer alcohol intake frequency: other Alcohol Intake Frequency Comment: former use none now Hx Substance Use: No substance use type: does not use Physical Exam Vital Signs Last Vital Signs Temp 36.4 C L 09/10/21 07:38 Pulse 80 09/10/21 07:38 Resp 16 09/10/21 07:38 BP 122/78 09/10/21 07:38 Pulse Ox 90 09/10/21 07:38 Testing Laboratory Results 09/10/21 06:36 09/10/21 06:36 PT 11.3 Seconds (9.0-12.0) 09/09/21 16:14 INR 1.1 (0.9-1.1) 09/09/21 16:14 APTT 27.6 Seconds (21.0-31.0) 09/09/21 16:14 Hemoglobin A1c 6.2 % (4.5-5.6) H 09/10/21 06:36 Blood Type B Positive 09/09/21 16:14 Antibody Screen NEGATIVE 09/09/21 16:14 09/10/21 07:57 POC Glucose 149 H Electrocardiogram Date: 09/09/21 Poor data quality, interpretation may be adversely affected AV dual-paced rhythm Abnormal ECG When compared with ECG of 15-JUL-2020 12:40, Vent. rate has increased BY 38 BPM Chest X-Ray Date: 07/15/21 FINDINGS: The visualized leads appear intact. No pneumothorax, pleural effusion or overt pulmonary edema. Moderate hemidiaphragmatic elevation. Minimal left lung base atelectasis/scarring. Degenerative changes of the shoulders and spine.
[2021-09-10] MEDS ORDERED: PROPOFOL IV EMULSION 10 MG/ML 20 ML VIAL IV ONE (11:51)
[2021-09-10] MEDS ORDERED: LIDOCAINE 2% 2 ML VIAL/AMP(20MG/ML) INFIL ONE (11:51)
--- NOTE | 2021-09-10 12:07 | Electrocardiogram Report ---
Test Reason : Blood Pressure : / mmHG Vent. Rate : 079 BPM Atrial Rate : 080 BPM P-R Int : 134 ms QRS Dur : 140 ms QT Int : 452 ms P-R-T Axes : 000 199 078 degrees QTc Int : 518 ms Poor data quality, interpretation may be adversely affected AV dual-paced rhythm Abnormal ECG When compared with ECG of 15-JUL-2020 12:40, Vent. rate has increased BY 38 BPM Confirmed by Luis Angel Celis ([id number]) on 09/10/2021 12:06:47 PM Referred By: REFERRED SELF Confirmed By:Luis Angel Celis
[2021-09-10] MEDS ORDERED: PHENYLEPHRINE 100MCG/ML 5ML SYR ONE (12:17)
--- NOTE | 2021-09-10 12:34 | GI REPORT ---
Patient Name: Kevon Charles Procedure Date: 09/10/2021 11:58 AM Date of : 1940 Admit Type: Inpatient Age: 80 Gender: Male Attending MD: Neri Hagen MD Procedure: Flexible Sigmoidoscopy Providers: Neri Hagen MD Referring MD: Bárbara Pham Do, Anna Abebe, Ryley Kimball MD Indications: Rectal hemorrhage Medicines: Propofol per Anesthesia Complications: No immediate complications. Estimated Blood Loss: Estimated blood loss: none. Procedure: Pre-Anesthesia Assessment: - Prior to the procedure, a History and Physical was performed, and patient medications, allergies and sensitivities were reviewed. The patient's tolerance of previous anesthesia was reviewed. - The risks and benefits of the procedure and the sedation options and risks were discussed with the patient. All questions were answered and informed consent was obtained. - Patient identification and proposed procedure were verified prior to the procedure by the physician and the nurse. The procedure was verified in the procedure room. - Pre-procedure physical examination revealed no contraindications to sedation. After obtaining informed consent, the endoscope was passed under direct vision. Throughout the procedure, the patient's blood pressure, pulse, and oxygen saturations were monitored continuously. The Endoscope was introduced through the anus and advanced to the descending colon. The flexible sigmoidoscopy was accomplished without difficulty. The patient tolerated the procedure well. Findings: The perianal and digital rectal examinations were normal. Large size ulcer with a large visible vessel with adherent clot secondary to previous polypectomy procedure seen in the rectum. Coagulation for hemostasis using bipolar probe was successful. Impression: - Polypectomy ulcer in the rectum with large visible vessel and adherent clot. Treated with bipolar cautery. Recommendation: - Return patient to [facility] for [facility] care. - Full liquid diet for 1 day, then advance as tolerated to low residue diet for 1 week. - Miralax 1 capful (17 grams) in 8 ounces of water PO daily for 1 week. Neri Hagen MD 09/10/2021 12:33:52 PM This report has been signed electronically. Note Initiated On: 09/10/2021 11:58 AM Number of Addenda: 0 I attest to the content of the Intraoperative Record and orders documented therein, exceptions below {[id number]}
--- NOTE | 2021-09-10 14:44 | Hospitalist Progress Note ---
Date of Service September 10, 2021 Assessment & Plan (1) BRBPR (bright red blood per rectum): (2) Anemia: (3) Chronic HFrEF (heart failure with reduced ejection fraction): (4) Stage 4 chronic kidney disease: (5) Hypertension: Plan: This is an 80-year-old male has significant past medical history of chronic HFrEF, nonischemic cardiomyopathy, presumed CAD, history of trifascicular block pacemaker placement in 2010 with device upgraded to biventricular rate responsi ve pacemaker 07/15/2020, HTN, HLD, CKD stage IV with left upper extremity AV fistula, T2DM who presents to ED after experiencing bright red blood per rectum since 1300. BRBPR Anemia due to acute blood loss admit to med tele pt had cscope on 08/27 with large polyp removed, also noted was sigmoid diverticula abd exam benign, no abd pain ? diverticular bleed vs related to polyp removal hgb 12.9, last hgb 04/10 14.0; likely related to blood loss from rectal bleeding NPO gentle IVF 60cc/hr x 1 L consult gastroenterology will place of IV PPI BID for now, but less likely UGIB hold asa for now type and cross and place 1 unit on hold, Blood consent signed in ED H/H @ 2200 Chronic HFrEF hx of trifascicular block s/p PPM HLD HLD continue statin and metoprolol hold asa, lasix for now daily weights euvolemic CKD-4 Acute on Chronic Renal insufficiency LUE fistula in place, baseline 2.4-2.7 bun/cr 62 and 2.95 gentle ivf in setting of renal disease/chf monitor bmp, avoid nephrotoxic agents holding lasix T2DM well controlled, last a1c 6.0 04/19/21 hold actos novolog correction factor protocol ordered DVT ppx: SCDS Dispo: med tele PCP: Andrae FULL CODE Pt was seen and examined in collaboration with Dr. Reece, please see addendum Admission and Anticipated Discharge Date Admission Date: September 09, 2021 Results & Data Results & Data ([facility] Vital Signs (Past 12 Hours) Vital Signs Temp Pulse Pulse Pulse Resp BP Pulse Ox 09/10/21 13:05 82 87 20 130/80 99 09/10/21 12:45 85 18 131/64 98 09/10/21 12:28 82 18 128/72 98 09/10/21 11:37 36.4 C L 79 20 129/44 L 97 09/10/21 07:38 36.4 C L 80 16 122/78 90 09/10/21 03:55 36.3 C L 70 16 92/55 L 98 Laboratory Results Short CBC 09/09/21 09/09/21 09/10/21 Range/Units 16:14 22:02 06:36 WBC 5.94 6.71 (4.8-10.8) K/uL Hgb 12.9 L 12.0 L 10.7 L (14.0-18.0) g/dL Hct 38.0 L 34.6 L 31.7 L (42-52) % Plt Count 143 119 L (130-400) K/uL BMP 09/09/21 09/10/21 16:14 06:36 Sodium 137 139 Potassium 3.7 3.8 Chloride 102 104 Carbon Dioxide 27 27 BUN 62 H 60 H Creatinine 2.95 H 2.97 H Glucose 128 H 128 H Calcium 9.3 8.9 Liver Function 09/09/21 09/10/21 Range/Units 16:14 06:36 Total Bilirubin 1.2 H 1.3 H (0.2-1.0) mg/dl Direct Bilirubin 0.3 H (0-0.2) mg/dl AST 42 H 33 (13-39) U/L ALT 25 20 (7-52) U/L Alkaline Phosphatase 237 H 200 H (34-104) U/L Albumin 3.3 L 3.0 L (3.4-5.0) gm/dl Medications Administered Current Inpatient Medications Acetaminophen (Acetaminophen 325 Mg Tab) 650 mg PO Q4H PRN PRN Reason: Pain or Fever Stop: 10/09/21 21:16 Al Hydrox/Mg Hydrox/Simethicone (Aluminum/Magnesium Susp 30 Ml Udc) 15 ml PO Q4H PRN PRN Reason: Dyspepsia Stop: 10/09/21 21:16 Allopurinol (Allopurinol 300 Mg Tab) 300 mg PO DAILY FAY Stop: 10/10/21 08:59 Last Admin: 09/10/21 08:19 Dose: 300 mg Documented by: Atorvastatin Calcium (Atorvastatin 40 Mg Tab) 40 mg PO HS FAY Stop: 10/09/21 21:16 Last Admin: 09/09/21 23:31 Dose: 40 mg Documented by: Dextrose (Dextrose 50% 50 Ml Syringe) 25 - 50 ml IV UD PRN; Protocol PRN Reason: Hypoglycemia Protocol Stop: 10/09/21 21:16 Glucagon (Glucagon For Inj 1 Mg Vial) 1 mg SQ UD PRN; Protocol PRN Reason: Hypoglycemia Protocol Stop: 10/09/21 21:16 Glucose (Glucose 10 Tabs/Tube) 4 - 8 tabs PO UD PRN; Protocol PRN Reason: Hypoglycemia Protocol Stop: 10/09/21 21:16 Glucose (Glucose 40% Gel 15 Gm Tube) 15 - 30 gm PO UD PRN; Protocol PRN Reason: Hypoglycemia Protocol Stop: 10/09/21 21:16 Insulin Aspart (Insulin Aspart Per Unit) 0 units SC ACHS FAY Stop: 10/09/21 21:16 Last Admin: 09/10/21 13:52 Dose: 1 units Documented by: Metoprolol Succinate (Metoprolol Succ 25mg Ext Rel Tab) 25 mg PO BID FAY Stop: 10/09/21 21:16 Last Admin: 09/10/21 08:19 Dose: 25 mg Documented by: Miscellaneous (Carbohydrates For Hypoglycemia ) 15 - 30 gm PO UD PRN PRN Reason: Hypoglycemia Protocol Stop: 10/09/21 21:16 Ondansetron HCl (Ondansetron Inj 2 Mg/Ml 2 Ml Vial) 4 mg IV Q6H PRN PRN Reason: Nausea Stop: 10/09/21 21:16 Polyethylene Glycol (Polyethylene (Miralax) 17 Gm Pack) 17 gm PO DAILY FAY Stop: 10/11/21 08:59
--- NOTE | 2021-09-10 17:31 | Communication Note ---
Date of Service: September 10, 2021
--- NOTE | 2021-09-10 17:41 | Discharge Summary ---
Date of Service September 10, 2021 Admission HPI Per Admitting Provider This is an 80-year-old male has significant past medical history of chronic HFrEF, nonischemic cardiomyopathy, presumed CAD, history of trifascicular block pacemaker placement in 2010 with device upgraded to biventricular rate responsive pacemaker 07/15/2020, HTN, HLD, CKD stage IV with left upper extremity AV fistula, T2DM who presents to ED after experiencing bright red blood per rectum since 1300. He admits to multiple bowel movements with bright red blood. He denies dayne diarrhea, but did have stool mixed with blood. He denies pain with BM or abdominal pain. He had a colonoscopy 2 weeks ago in which a polyp was removed and it showed sigmoid diverticula. He has never had anything like this before. He denies hx of hemorrhoids or diverticulitis. He denies lightheaded, n/v/d, chest pain, sob, f/c/s, dysuria, increased urg/freq with urination, hematuria or melena. He takes a baby ASA daily, last dose yesterday. He does not use any OTC NSAIDS. He is not on any blood thinners. He denies hx of PUD. In ED patient remained hemodynamically stable. His admitting hemoglobin hematocrit was 12.9 and 38.0 respectively. His CMP was remarkable for elevated BUN 62, creatinine 2.95, glucose 128, total bilirubin 1.2, AST 42, alkaline phosphatase 237. His stool PCR was negative. He was typed and screened B positive. Admission Exam Per Admitting Provider This is an 80-year-old male has significant past medical history of chronic HFrEF, nonischemic cardiomyopathy, presumed CAD, history of trifascicular block pacemaker placement in 2010 with device upgraded to biventricular rate responsive pacemaker 07/15/2020, HTN, HLD, CKD stage IV with left upper extremity AV fistula, T2DM who presents to ED after experiencing bright red blood per rectum since 1300. He admits to multiple bowel movements with bright red blood. He denies dayne diarrhea, but did have stool mixed with blood. He denies pain with BM or abdominal pain. He had a colonoscopy 2 weeks ago in which a polyp was removed and it showed sigmoid diverticula. He has never had anything like this before. He denies hx of hemorrhoids or diverticulitis. He denies lightheaded, n/v/d, chest pain, sob, f/c/s, dysuria, increased urg/freq with urination, hematuria or melena. He takes a baby ASA daily, last dose yesterday. He does not use any OTC NSAIDS. He is not on any blood thinners. He denies hx of PUD. In ED patient remained hemodynamically stable. His admitting hemoglobin hematocrit was 12.9 and 38.0 respectively. His CMP was remarkable for elevated BUN 62, creatinine 2.95, glucose 128, total bilirubin 1.2, AST 42, alkaline phosphatase 237. His stool PCR was negative. He was typed and screened B positive. Principal Diagnosis Hematochezia 2/2 Polypectomy ulcer in the rectum with large visible vessel and adherent clot status post cautery Acute blood loss anemia Discharge Exam CONSTITUTIONAL: WNWD, vitals as above, generally well-appearing, NAD EYES: normal conjunctivae, no scleral icterus ENT: external ear and nose normal, MMM NECK: trachea midline, RESPIRATORY: clear to auscultation bilaterally, no crackles, rales or wheezes, normal respiratory effort CARDIOVASCULAR: regular rate and rhythm, S1 and 2 heard without murmurs, gallops or rubs, no JVD, no peripheral edema CHEST: inspection of chest was normal GASTROINTESTINAL: soft, nontender, ND, no guarding MUSCULOSKELETAL: strength 5/5 throughout, head is normocephalic and atraumatic SKIN: warm and dry NEUROLOGIC: CN 2-12 grossly intact, no sensory deficit, normal cognition, normal speech, no tremor, no gross focal deficit. PSYCHIATRIC: alert cooperative and oriented to person, place and time. Discharge Data Allergies Allergy/AdvReac Type Severity Reaction Status Date / Time lisinopril Allergy Mild ALTERED Verified 08/27/21 09:44 KIDNEY FUNCTIONS Consultations 09/09/21 17:33 ED Decision to Admit Stat 09/09/21 19:45 Consult Gastroenterology Routine Procedures Performed Operation Date: 09/10/21 15:30 Actual Procedures p Flexible Sigmoidoscopy Hemostasis - Neri Hagen MD Hospital Course (1) BRBPR (bright red blood per rectum): (2) Anemia: (3) Chronic HFrEF (heart failure with reduced ejection fraction): (4) Stage 4 chronic kidney disease: (5) Hypertension: This is an 80-year-old male has significant past medical history of chronic HFrEF, nonischemic cardiomyopathy, presumed CAD, history of trifascicular block pacemaker placement in 2010 with device upgraded to biventricular rate responsive pacemaker 07/15/2020, HTN, HLD, CKD stage IV with left upper extremity AV fistula, T2DM who presents to ED after experiencing bright red blood per rectum x 1 day. Aspirin was held and he was admitted to medicine. GI was consulted. He recently had a colonoscopy with polypectomy in the rectum two weeks ago. He was prepped with a tap water enema and underwent flexible signoidoscopy. There was a polypectomy ulcer in the rectum with large visible vessel and adherent clot. It was successfully treated with bipolar cautery. He remained hemodynamically stable and afebrile. H&H was 13/38 on admission and 10.7/31.7 on day of discharge. He will continue to observe a full liquid diet for 24 hours postprocedure then advance to regular diet and take once daily MiraLAX for the next week. Was discharged in stable condition with close primary care follow-up was recommended. Total Time Total Time Spent Total Time Spent (In Minutes): 60 Discharge Plan Discharge Items Patient Disposition: Home - Self-Care Reason For Visit: RECTAL BLEEDING Discharge Diagnosis: Blood in stool 2/2 Polypectomy ulcer in the rectum with large visible vessel and adherent clot status post cautery Condition on Discharge: Good Activity: Resume your previous activity Non-emergency contact: Primary Care Provider and Back End Engineer Call non-emergency contact if: you have any medication questions, your symptoms worsen, your pain is not controlled, your pain is worsening, your pain is unusual for you, your pain is concerning for you and you have a fever Follow-up/Referrals: Anna Abebe MD [Primary Care Provider] - Diet: Full liquid Addtl Attending Provider Instructions: Please take all medications as instructed on discharge as below. Please hold aspirin for the next week and restart once there is no bleeding for least a week. You may also wait until follow-up with your primary care doctor to discuss further. It is recommended that you observe a full liquid diet for the next 24 hours and then advance to a regular diet after that. Please continue daily MiraLAX 1 dose every morning to ensure softer stools for the next week. The source of bleeding from your rectum was from an ulceration left after recent polyp removal during your recent colonoscopy. The pathology from that polyp shows no evidence of abnormal cells. The ulceration that resulted bled and there was a blood clot in that spot seen today on the flexible sigmoidoscopy. This is the area that was cauterized. There were no further biopsies taken this admission. It is recommended that you follow-up with your primary care doctor within 1 week of hospital stay to ensure you are still doing well after returning home and ensure there is no bleeding. At this time you may be able to resume your aspirin and ensure no complications from recent procedure performed. It was a pleasure taking care of you! Please call if you have any questions or problems. You can reach a [facility] hospitalist on duty at [facility] 24 hours a day by calling [phone]. Take care of yourself. Bárbara Pham DO [facility] Campus[facility] Pending Studies at Discharge: No Stand-Alone Forms: My [facility] Medications and DC Order Prescriptions: New polyethylene glycol 3350 [Miralax] 17 gram Powder In Packet 17 g PO DAILY Qty: 30 RF: 0 Continued furosemide 40 mg tablet 40 mg PO DAILY RF: 0 furosemide 40 mg tablet 20 mg PO DAILY@1400 RF: 0 pioglitazone 15 mg tablet 15 mg PO DAILY RF: 0 atorvastatin 40 mg tablet 40 mg PO HS RF: 0 allopurinol 300 mg tablet 300 mg PO DAILY RF: 0 metoprolol succinate 25 mg tablet extended release 24 hr 25 mg PO BID RF: 0 Discontinued aspirin [Aspir-81] 81 mg Tablet,Delayed Release (Dr/Ec) 81 mg PO DAILY RF: 0 Discharge Orders: Discharge Order (Routine); Ordered 09/10/21 Ordered By: Bárbara Young/Other Patient Handouts: Managing Type 2 Diabetes Admission Data Admit Date/Time: 09/10/21 14:38 Attending Provider: Bárbara Pham Admit Provider: David Reece Primary Care Provider: Anna Abebe Other Providers: David Reece ; Meg Rivera
[2021-09-11] MEDS ORDERED: FUROSEMIDE 40 MG TAB PO SCH (09:00)
[2021-09-11] MEDS ORDERED: POLYETHYLENE (MIRALAX) 17 GM PACK PO SCH (09:00)
[2021-09-11] MEDS ORDERED: FUROSEMIDE 20 MG TAB PO SCH (14:00)
== END 2021-09-10 18:20 | disposition home or self-care (01) | DRG 920 ==
LOC: ED 16:04 → EDINP 16:04 → SUATTDRO 18:02 → 2N 22:15
DX: M10.9 Gout, unspecified; E11.22 Type 2 diabetes mellitus with diabetic chronic kidney disease; Z79.82 Long term (current) use of aspirin; Z87.891 Personal history of nicotine dependence; K62.6 Ulcer of anus and rectum; E78.5 Hyperlipidemia, unspecified; Z88.1 Allergy status to other antibiotic agents; N28.9 Disorder of kidney and ureter, unspecified; I13.0 Hypertensive heart and chronic kidney disease with heart failure and stage 1 through stage 4 chronic kidney disease, or unspecified chronic kidney disease; K91.840 Postprocedural hemorrhage of a digestive system organ or structure following a digestive system procedure; Z95.0 Presence of cardiac pacemaker; I25.10 Atherosclerotic heart disease of native coronary artery without angina pectoris; I50.9 Heart failure, unspecified; N18.4 Chronic kidney disease, stage 4 (severe); D62 Acute posthemorrhagic anemia

== ENCOUNTER 2021-12-23 03:04 | Inpatient (IN) ==
[2021-12-23 04:01] LABS: Basophils # (auto) 0.09 K/uL (0-0.2); Basophils % (auto) 0.9 %; Eosinophils # (auto) 0.48 K/uL (0-0.50); Hematocrit (blood only) 30.4 % (40.1-51.0); Hemoglobin 9.5 g/dl (14.0-18.0); Immature Granulocytes # (auto) 0.12 K/uL (0.00-0.02); Immature Granulocytes % (auto) 1.3 %; Lymphocytes # (auto) 3.24 K/uL (1.2-3.4); Lymphocytes % (auto) 33.9 %; Mean Corpuscular Hemoglobin 25.6 pg (25.0-34.0); Mean Corpuscular Hgb Conc 31.3 g/dL (32.0-36.0); Mean Corpuscular Volume 81.9 fL (80.0-100.0); Mean Platelet Volume 11.9 fL (9.4-12.4); Monocytes # (auto) 0.72 K/uL (0.24-0.82); Monocytes % (auto) 7.5 %; Neutrophils # (auto) 4.91 K/uL (1.4-6.5); Neutrophils % (auto) 51.4 %; Platelet Count 195 K/uL (130-400); RDW Coefficient of Variation 18.8 % (11.5-14.5); RDW Standard Deviation 56.2 fL (36.4-46.3); Red Blood Count 3.71 M/uL (4.63-6.08); White Blood Count 9.56 K/ul (4.8-10.8)
--- NOTE | 2021-12-23 04:04 | Emergency Department Note ---
Impression & Plan Subcapital fracture of right hip Admit to the [facility] ED Provider Note NAME: CHAPARRITA MATHEWS JR AGE: 81 SEX: M ARRIVES VIA: Ambulance INFORMANT: Patient and his ED PROVIDER(S): Phyllis Nelson DO CHIEF COMPLAINT: Syncope PLAN: Disposition: Admit to the [facility] Condition: Stable MEDICAL DECISION MAKING: This is an 81-year-old male patient who suffered a syncopal event at home while getting up to go to the bathroom tonight. His found him on the floor unresponsive. EMS was called and he complained of right hip pain. He had an episode of hypotension for EMS which responded to IV crystalloid therapy. During my evaluation, the patient was quite pale and was found to have a systolic blood pressure of 70 and he complained of persistent pelvic pain and right hip pain. The patient went for CT scans of the head, neck, chest, abd omen/pelvis. His blood pressure rebounded with IV crystalloid therapy. CT scan shows evidence of a subcapital hip fracture on the right but no other obvious traumatic injuries. Triage Nursing notes reviewed and agree with them. Additional history obtained from the patient's is at the bedside Prior medical records reviewed [ Vital Signs: reviewed and remarkable for hypotension Differential diagnosis: Pelvis fracture, hip fracture, syncope, mechanical fall ER treatment provided: IV normal saline Diagnostics interpreted by me: ECG: Paced rhythm at a rate of 78 with no obvious signs of ischemia or ectopy Cardiac Monitoring: Paced rhythm at 77 Laboratory studies: See below Imaging studies: As per stat rad CT ABDOMEN & PELVIS With Contrast: Main findings: Impacted minimally displaced subcapital right hip fracture. Markedly dilated urinary bladder measuring 22 x 13 x 19 cm (2900 cc). Other findings: Elevation of the right hemidiaphragm. Colonic interposition betweem the liver and the hemidiaphragm noted. Cirrhotic appearance of the liver. Bilateral marked renal atrophy. 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 No aortic aneurysm. Severe degenerative spinal canal stenosis L4-L5 secondary to a calcified herniated disc and facet hypertrophy. CT chest with contrast: Enlarged heart, herniated into the left chest. Coronary atherosclerosis. No pericardial effusion. Cardiac wires in place. Normal aorta with mild atherosclerosis. Clear lungs. No fracture. CT C-spine: No fracture or malalignment of the cervical spine. No prevertebral soft tissue swelling. There are degenerative changes of the spine. Nondisplaced anterior right first rib fracture. CT head: Motion artifact limits evaluation. No acute intracranial hemorrhage. No evidence of intracranial mass, extra-axial fluid collection or acute territorial infarct. White matter hypodensities, which are nonspecific but most likely related to chronic small vessel ischemic changes. Global cerebral volume loss. Visualized. Nasal sinuses and mastoid air cells are clear. HPI: 81/M arrives for evaluation of syncope. Patient got up to go to the bathroom and began to feel dizzy. He then woke up on the floor. The describes hearing a bump and found him unresponsive on the floor in the bathroom. He states he was feeling fine before going to bed last night. ROS: See above HPI for pertinent positives & negatives. A total of 10 systems reviewed and were otherwise negative. PAST MEDICAL HISTORY:See Below PAST SURGICAL HISTORY:See Below FAMILY HISTORY:See Below SOCIAL HISTORY:See Below HOME MEDICATIONS:See list ALLERGIES:See list VITALS:See Below PHYSICAL EXAMINATION: HEENT: Head - normocephalic and atraumatic. Pupils are equal, round, and reactive to light. Extraocular eye muscles are intact and sclera are anicteric. Ears - bilaterally patent canals with no evidence of hemotympanum. Nose - moist nasal mucosa without evidence of trauma or discharge. Mouth - moist buccal mucosa with no trauma to the teeth or signs of malocclusion. Neck: The neck is supple and there is no pain to palpation over the posterior cervical spine and no obvious step-offs or deformities. There is no JVD or tracheal deviation. Chest: There are no signs of deformities, contusions or abrasions to the chest wall. There is no obvious crepitus or paradoxical chest rise. Heart: Regular, rate, and rhythm. There is a normal S1 and S2 with no murmurs, clicks, or gallops appreciated. Lungs: Clear to auscultation bilaterally with no wheezes, rales, or rhonchi. Abdomen: Soft, completely nontender, nondistended, with good bowel sounds. There is no sign of trauma such as contusions, abrasions or penetrations. There are no palpable pulsatile masses or hepatosplenomegaly. There is no guarding, rigidity, or rebound noted. Pelvis: Stable to rock and compression. Extremities: Abrasion and contusion to the right knee. Patient is unable to lift the right leg up off of the stretcher because of pain in the right hip and pelvis. There are easily palpable peripheral pulses. Neuro: The patient is awake and alert and easily able to follow commands. Muscle strength is 5 out of 5 in all 4 extremities. Otherwise, neuro exam is unremarkable. Skin: Extremely pale. Cool to touch. No rashes noted. Multiple areas of abrasions ED COURSE: Times/Reassessments: 320 the patient was quickly evaluated in room C4. A second IV lock was initiated and the patient was bolused with 500 cc of saline as he was hypotensive. An order was placed for continuous cardiac monitoring. The patient was in a normal sinus rhythm at a rate of 77. Laboratory studies were drawn as above. The patient went emergently for CT scan of the brain, cervical spine, chest, abdomen/pelvis. Upon returning from radiology, I reviewed the results of the CT with the patient and his . I discussed the case with the [facility] and they will evaluate for further management. He remained hemodynamically stable. Phyllis Nelson DO Past Med/Surg History Medical History (Updated 12/24/21 @ 16:02 by Phyllis Nelson DO) Anemia Chronic heart failure Diabetes mellitus, type 2 NIDDM GERD (gastroesophageal reflux disease) Gout Hearing deficit Hematochezia Hyperlipidemia Obesity Pacemaker [employer]. 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 Yan. last checked remotely ~05/2021 Renal insufficiency Shortness of breath on exertion reason for inhaler Surgical History History of appendectomy History of colonoscopy History of pacemaker initially placed in 2010, and changed 06/2020 [facility] Dr Ko History of tooth extraction most teeth removed S/P arteriovenous (AV) fistula creation 2008 left arm Family History Father , 59 Family history of diabetes mellitus Coronary heart disease Mother Cancer Other No family history of adverse response to anesthesia Social History Smoking Status: Never smoker Tobacco Type: Cigarettes Cigarettes Per Day: 9; Second Hand Exposure: No; Hx Alcohol Use: No Hx Substance Use: No Preferred Language: Chadian Communication Ability: Effective Air Conditioning Mechanic Required: No Beliefs That Will Affect Care: None marital status: Current Living Situation: Spouse Current Living Situation Comment: Lives at home with spouse can drive and cook his does the shopping Feels Safe at Home: Yes Assistive Devices: Cane, Stair Lift and Wheelchair Allergies Allergies Allergy/AdvReac Type Severity Reaction Status Date / Time lisinopril AdvReac Mild ALTERED Verified 12/23/21 03:10 KIDNEY FUNCTIONS Home Meds Home Medications Medication Instructions Recorded Confirmed allopurinol 300 mg tablet 300 mg PO DAILY 09/09/21 12/23/21 atorvastatin 40 mg tablet 40 mg PO HS 09/09/21 12/23/21 furosemide 40 mg tablet See Rx Instructions .Route .COMPLEX 09/09/21 12/23/21 metoprolol succinate 25 mg 25 mg PO BID 09/09/21 12/23/21 tablet,extended release 24 hr pioglitazone 15 mg tablet 15 mg PO DAILY 09/09/21 12/23/21 aspirin 81 mg PO DAILY 12/23/21 12/23/21 multivitamin 1 tab PO DAILY 12/23/21 12/23/21 Results & Data (ED) Vital Signs Vital Signs - 24 hr 12/23/21 03:11 12/23/21 03:15 12/23/21 04:26 Temperature 36.6 C Temperature Source Temporal Artery Scan Pulse Rate 77 80 Pulse Rate [Apical] Pulse Rate from SpO2 Sensor Respiratory Rate 18 22 Blood Pressure 108/63 Blood Pressure Mean 78 Pulse Oximetry 92 99 Oxygen Delivery Method Room Air Room Air Nasal Cannula Oxygen Flow Rate 3 Sepsis Recent Fever Within 48 Hours No Sepsis New/Unexplained Change in Mental Status No Sepsis Action Taken by Nursing No Action Required Pulse Oximetry Post Tiitration 92 12/23/21 04:28 12/23/21 03:43 12/23/21 03:44 Temperature Temperature Source Pulse Rate 79 Pulse Rate [Apical] 78 Pulse Rate from SpO2 Sensor Respiratory Rate 20 Blood Pressure 84/57 L Blood Pressure Mean 66 Pulse Oximetry 98 Oxygen Delivery Method Nasal Cannula Oxygen Flow Rate 3 Sepsis Recent Fever Within 48 Hours Sepsis New/Unexplained Change in Mental Status Sepsis Action Taken by Nursing Pulse Oximetry Post Tiitration 12/23/21 03:49 12/23/21 03:49 12/23/21 03:50 Temperature Temperature Source Pulse Rate 74 Pulse Rate [Apical] Pulse Rate from SpO2 Sensor 75 Respiratory Rate 16 Blood Pressure 92/57 L 98/55 L Blood Pressure Mean 68 69 Pulse Oximetry 93 Oxygen Delivery Method Oxygen Flow Rate Sepsis Recent Fever Within 48 Hours Sepsis New/Unexplained Change in Mental Status Sepsis Action Taken by Nursing Pulse Oximetry Post Tiitration 12/23/21 03:50 12/23/21 03:52 12/23/21 03:53 Temperature Temperature Source Pulse Rate 71 Pulse Rate [Apical] Pulse Rate from SpO2 Sensor 70 69 Respiratory Rate 17 Blood Pressure 98/56 L Blood Pressure Mean 70 Pulse Oximetry 93 94 Oxygen Delivery Method Oxygen Flow Rate Sepsis Recent Fever Within 48 Hours Sepsis New/Unexplained Change in Mental Status Sepsis Action Taken by Nursing Pulse Oximetry Post Tiitration 12/23/21 04:15 12/23/21 04:16 12/23/21 04:16 Temperature Temperature Source Pulse Rate Pulse Rate [Apical] Pulse Rate from SpO2 Sensor 59 L 78 Respiratory Rate Blood Pressure 103/69 Blood Pressure Mean 80 Pulse Oximetry 90 91 Oxygen Delivery Method Oxygen Flow Rate Sepsis Recent Fever Within 48 Hours Sepsis New/Unexplained Change in Mental Status Sepsis Action Taken by Nursing Pulse Oximetry Post Tiitration 12/23/21 04:20 12/23/21 04:20 12/23/21 04:25 Temperature Temperature Source Pulse Rate 76 Pulse Rate [Apical] Pulse Rate from SpO2 Sensor 78 Respiratory Rate 26 H Blood Pressure 106/69 114/67 Blood Pressure Mean 81 82 Pulse Oximetry 89 L Oxygen Delivery Method Oxygen Flow Rate Sepsis Recent Fever Within 48 Hours Sepsis New/Unexplained Change in Mental Status Sepsis Action Taken by Nursing Pulse Oximetry Post Tiitration 12/23/21 04:25 12/23/21 04:30 12/23/21 04:30 Temperature Temperature Source Pulse Rate 83 75 Pulse Rate [Apical] Pulse Rate from SpO2 Sensor 83 73 Respiratory Rate 17 Blood Pressure 113/68 Blood Pressure Mean 83 Pulse Oximetry 100 99 Oxygen Delivery Method Oxygen Flow Rate Sepsis Recent Fever Within 48 Hours Sepsis New/Unexplained Change in Mental Status Sepsis Action Taken by Nursing Pulse Oximetry Post Tiitration 12/23/21 04:40 12/23/21 04:40 12/23/21 04:50 Temperature Temperature Source Pulse Rate 78 Pulse Rate [Apical] Pulse Rate from SpO2 Sensor 71 Respiratory Rate 20 Blood Pressure 109/69 119/76 Blood Pressure Mean 82 90 Pulse Oximetry Oxygen Delivery Method Oxygen Flow Rate Sepsis Recent Fever Within 48 Hours Sepsis New/Unexplained Change in Mental Status Sepsis Action Taken by Nursing Pulse Oximetry Post Tiitration 12/23/21 04:50 12/23/21 05:00 12/23/21 05:00 Temperature Temperature Source Pulse Rate 77 86 Pulse Rate [Apical] Pulse Rate from SpO2 Sensor 76 85 Respiratory Rate 18 Blood Pressure 121/86 Blood Pressure Mean 97 Pulse Oximetry 99 99 Oxygen Delivery Method Oxygen Flow Rate Sepsis Recent Fever Within 48 Hours Sepsis New/Unexplained Change in Mental Status Sepsis Action Taken by Nursing Pulse Oximetry Post Tiitration 12/23/21 05:10 12/23/21 05:10 12/23/21 05:20 Temperature Temperature Source Pulse Rate 85 Pulse Rate [Apical] Pulse Rate from SpO2 Sensor 84 Respiratory Rate 21 Blood Pressure 117/77 106/67 Blood Pressure Mean 90 80 Pulse Oximetry 100 Oxygen Delivery Method Oxygen Flow Rate Sepsis Recent Fever Within 48 Hours Sepsis New/Unexplained Change in Mental Status Sepsis Action Taken by Nursing Pulse Oximetry Post Tiitration 12/23/21 05:20 12/23/21 05:30 12/23/21 05:30 Temperature Temperature Source Pulse Rate 76 83 Pulse Rate [Apical] Pulse Rate from SpO2 Sensor 77 80 Respiratory Rate 22 Blood Pressure 113/77 Blood Pressure Mean 89 Pulse Oximetry 99 100 Oxygen Delivery Method Oxygen Flow Rate Sepsis Recent Fever Within 48 Hours Sepsis New/Unexplained Change in Mental Status Sepsis Action Taken by Nursing Pulse Oximetry Post Tiitration Laboratory Data Result diagrams: 12/24/21 05:22 12/24/21 05:22 Lab Results 12/23/21 12/23/21 12/23/21 Range/Units 03:16 03:16 03:16 WBC 9.56 (4.8-10.8) K/ul RBC 3.71 L (4.63-6.08) M/uL Hgb 9.5 L (14.0-18.0) g/dl Hct 30.4 L (40.1-51.0) % MCV 81.9 (80.0-100.0) fL MCH 25.6 (25.0-34.0) pg MCHC 31.3 L (32.0-36.0) g/dL RDW Std Deviation 56.2 H (36.4-46.3) fL RDW Coeff of Armani 18.8 H (11.5-14.5) % Plt Count 195 (130-400) K/uL MPV 11.9 (9.4-12.4) fL Immature Gran % (Auto) 1.3 % Neut % (Auto) 51.4 % Lymph % (Auto) 33.9 % [place] % (Auto) 7.5 % Eos % (Auto) 5.0 % Baso % (Auto) 0.9 % Neut # (Auto) 4.91 (1.4-6.5) K/uL Lymph # (Auto) 3.24 (1.2-3.4) K/uL [place] # (Auto) 0.72 (0.24-0.82) K/uL Eos # (Auto) 0.48 (0-0.50) K/uL Baso # (Auto) 0.09 (0-0.2) K/uL Immature Gran # (Auto) 0.12 H (0.00-0.02) K/uL Sodium 137 (136-145) mmol/L Potassium 3.3 L (3.5-5.1) mmol/L Chloride 101 (98-107) mmol/L Carbon Dioxide 24 (21-32) mmol/L Anion Gap 12 H (3-11) BUN 41 H (6-23) mg/dl Creatinine 2.59 H (0.6-1.4) mg/dl Est Cr Clr Drug Dosing 25.8 ml/min Est GFR ( Amer) 25.8 ml/min Est GFR (Non-Af Amer) 22.2 ml/min BUN/Creatinine Ratio 15.8 (10-20) Glucose 149 H (70-99(Fasting)) mg/dl Calcium 9.0 (8.5-10.1) mg/dl Magnesium 2.0 (1.7-2.4) mg/dl Total Bilirubin 0.9 (0.2-1.0) mg/dl AST 40 H (13-39) U/L ALT 28 (7-52) U/L Alkaline Phosphatase 223 H (34-104) U/L Total Protein 5.9 L (6.0-8.3) gm/dl Albumin 3.1 L (3.4-5.0) gm/dl Globulin 2.8 (2.5-4.0) gm/dl Albumin/Globulin Ratio 1.1 (0.9-2) Urine Color Urine Appearance (Clear) Urine pH (4.5-7.5) Ur Specific [place] (1.000-1.030) Urine Protein (Negative) Urine Glucose (UA) (Negative) Urine Ketones (Negative) Urine Blood (Negative) Urine Nitrite (Negative) Urine Bilirubin (Negative) Urine Urobilinogen (Negative) Ur Leukocyte Esterase (Negative) SARS-CoV-2, RNA, NAAT (NEGATIVE) 12/23/21 12/23/21 Range/Units 06:10 06:38 WBC (4.8-10.8) K/ul RBC (4.63-6.08) M/uL Hgb (14.0-18.0) g/dl Hct (40.1-51.0) % MCV (80.0-100.0) fL MCH (25.0-34.0) pg MCHC (32.0-36.0) g/dL RDW Std Deviation (36.4-46.3) fL RDW Coeff of Armani (11.5-14.5) % Plt Count (130-400) K/uL MPV (9.4-12.4) fL Immature Gran % (Auto) % Neut % (Auto) % Lymph % (Auto) % [place] % (Auto) % Eos % (Auto) % Baso % (Auto) % Neut # (Auto) (1.4-6.5) K/uL Lymph # (Auto) (1.2-3.4) K/uL [place] # (Auto) (0.24-0.82) K/uL Eos # (Auto) (0-0.50) K/uL Baso # (Auto) (0-0.2) K/uL Immature Gran # (Auto) (0.00-0.02) K/uL Sodium (136-145) mmol/L Potassium (3.5-5.1) mmol/L Chloride (98-107) mmol/L Carbon Dioxide (21-32) mmol/L Anion Gap (3-11) BUN (6-23) mg/dl Creatinine (0.6-1.4) mg/dl Est Cr Clr Drug Dosing ml/min Est GFR ( Amer) ml/min Est GFR (Non-Af Amer) ml/min BUN/Creatinine Ratio (10-20) Glucose (70-99(Fasting)) mg/dl Calcium (8.5-10.1) mg/dl Magnesium (1.7-2.4) mg/dl Total Bilirubin (0.2-1.0) mg/dl AST (13-39) U/L ALT (7-52) U/L Alkaline Phosphatase (34-104) U/L Total Protein (6.0-8.3) gm/dl Albumin (3.4-5.0) gm/dl Globulin (2.5-4.0) gm/dl Albumin/Globulin Ratio (0.9-2) Urine Color Yellow Urine Appearance Clear (Clear) Urine pH 7.0 (4.5-7.5) Ur Specific [place] 1.008 (1.000-1.030) Urine Protein Negative (Negative) Urine Glucose (UA) Negative (Negative) Urine Ketones Negative (Negative) Urine Blood Negative (Negative) Urine Nitrite Negative (Negative) Urine Bilirubin Negative (Negative) Urine Urobilinogen Negative (Negative) Ur Leukocyte Esterase Negative (Negative) SARS-CoV-2, RNA, NAAT NEGATIVE (NEGATIVE) Administered Medications Acetaminophen (Acetaminophen 325 Mg Tab) 650 mg PO Q4H PRN PRN Reason: Pain or Fever Stop: 01/22/22 09:02 Last Admin: 12/24/21 00:24 Dose: 650 mg Documented By: Admin: 12/23/21 14:48 Dose: 650 mg Documented By: NIXON Allopurinol (Allopurinol 300 Mg Tab) 300 mg PO DAILY [facility] Stop: 01/22/22 09:02 Last Admin: 12/24/21 07:19 Dose: 300 mg Documented By: Admin: 12/23/21 09:33 Dose: 300 mg Documented By: NIXON Aspirin (Aspirin 81 Mg Ectab) 81 mg PO QA FAY Stop: 01/22/22 08:59 Last Admin: 12/24/21 07:19 Dose: 81 mg Documented By: Admin: 12/23/21 09:32 Dose: 81 mg Documented By: NIXON Atorvastatin Calcium (Atorvastatin 40 Mg Tab) 40 mg PO HS FAY Stop: 01/22/22 20:59 Last Admin: 12/23/21 20:24 Dose: 40 mg Documented By: HOMERO Lactated Ringer's (Lr) 1,000 mls @ 60 mls/hr IV .[id number] FAY Stop: 01/23/22 00:00 Last Admin: 12/24/21 01:15 Dose: 60 mls/hr Documented By: HOMERO Insulin Aspart (Insulin Aspart Per Unit) 0 units SC Q6 FAY Stop: 01/23/22 05:59 Last Admin: 12/24/21 11:33 Dose: Not Given Documented By: Admin: 12/24/21 06:16 Dose: 1 units Documented By: HOMERO Co-signed By: BHAVNA Multivitamins (Multivitamin Tab) 1 tab PO QAM FAY Stop: 01/22/22 08:59 Last Admin: 12/24/21 07:19 Dose: 1 tab Documented By: Admin: 12/23/21 09:35 Dose: 1 tab Documented By: NIXON Discontinued Medications Cefazolin Sodium (Cefazolin 2,000 Mg/15 Ml Iv Push) Confirm Administered Dose 2,000 mg IV .STK-MED ONE Stop: 12/24/21 15:14 Last Admin: 12/24/21 15:14 Dose: 2,000 mg Documented By: YESI Lactated Ringer's (Lr) 1,000 mls @ 60 mls/hr IV .[id number] ONE Stop: 12/23/21 23:07 Last Infusion: 12/24/21 01:16 Dose: 0 mls/hr Documented By: Admin: 12/23/21 07:10 Dose: 60 mls/hr Documented By: JOSEPH Insulin Aspart (Insulin Aspart Per Unit) 0 units SC ACHS FAY Stop: 01/22/22 09:02 Last Admin: 12/23/21 20:22 Dose: 3 units Documented By: HOMERO Co-signed By: ROLLY Admin: 12/23/21 16:47 Dose: Not Given Documented By: Admin: 12/23/21 11:41 Dose: Not Given Documented By: Admin: 12/23/21 09:27 Dose: Not Given Documented By: NIXON Ioversol (Ioversol 350 Mg 100ml Prefilled Syringe) 45 ml IV ONCE ONE Stop: 12/23/21 04:27 Last Admin: 12/23/21 04:26 Dose: 45 ml Documented By: NATE Metoprolol Succinate (Metoprolol Succ 25mg Ext Rel Tab) 12.5 mg PO DAILY [facility]AY Stop: 01/22/22 09:02 Last Admin: 12/24/21 07:19 Dose: 12.5 mg Documented By: Admin: 12/23/21 09:33 Dose: 12.5 mg Documented By: NIXON Miscellaneous Information (Nursing To Pharmacy Communication) 1 each N/A TODAY [facility] Stop: 01/23/22 04:44 Last Admin: 12/24/21 10:56 Dose: 1 each Documented By: NIXON Potassium Chloride (Potassium Chloride Crtab 20 Meq Tabcr) 40 meq PO NOW STA Stop: 12/23/21 06:11 Last Admin: 12/23/21 06:37 Dose: 40 meq Documented By: IVETT Potassium Chloride (Potassium Chloride Crtab 20 Meq Tabcr) 40 meq PO ONE ONE Stop: 12/23/21 09:31 Last Admin: 12/23/21 08:48 Dose: 40 meq Documented By: NIXON Discharge Plan Visit Data Chief Complaint: Syncope ED Provider: Phyllis Nelson Discharge Problem: Subcapital fracture of right hip Patient Disposition: Admitted As Inpatient Discharge Instructions Interventions: ED Discharge Assessment Last Done: 12/23/21 08:04
[2021-12-23 04:11] LABS: Albumin Globulin Ratio 1.1 (0.9-2); Albumin Level 3.1 gm/dl (3.4-5.0); BUN Creatinine Ratio 15.8 (10-20); Bilirubin,Total 0.9 mg/dl (0.2-1.0); Creatinine Clr Calc Pharmacy 25.8 ml/min; Est GFR (African American) 25.8 ml/min; Est GFR (Non-African American) 22.2 ml/min; Globulin 2.8 gm/dl (2.5-4.0); Potassium 3.3 mmol/L (3.5-5.1); Total Protein 5.9 gm/dl (6.0-8.3)
[2021-12-23] MEDS ORDERED: IOVERSOL 350 MG 100mL Prefilled Syringe IV ONE (04:26)
[2021-12-23] MEDS ORDERED: POTASSIUM CHLORIDE CRTAB 20 MEQ TABCR PO STA (06:10)
--- NOTE | 2021-12-23 06:22 | History & Physical Report ---
Date of Service December 23, 2021 History of Present Illness Primary Care Provider: Anna Abebe MD Allergies Allergy/AdvReac Type Severity Reaction Status Date / Time lisinopril AdvReac Mild ALTERED Verified 12/23/21 03:10 KIDNEY FUNCTIONS Home Medications Medication Instructions Recorded Confirmed Type allopurinol 300 mg tablet 300 mg PO DAILY 09/09/21 12/23/21 History atorvastatin 40 mg tablet 40 mg PO HS 09/09/21 12/23/21 History furosemide 40 mg tablet See Rx Instructions .Route .COMPLEX 09/09/21 12/23/21 History metoprolol succinate 25 mg 25 mg PO BID 09/09/21 12/23/21 History tablet,extended release 24 hr pioglitazone 15 mg tablet 15 mg PO DAILY 09/09/21 12/23/21 History Past Med/Surg History Medical History Chronic heart failure Diabetes mellitus, type 2 NIDDM GERD (gastroesophageal reflux disease) Gout Hearing deficit Hyperlipidemia Hypertension Pacemaker Medtronic. 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 Yan. last checked remotely ~05/2021 Shortness of breath on exertion reason for inhaler Stage 4 chronic kidney disease Left UE AVF in place- not on dialysis yet Surgical History History of appendectomy History of colonoscopy History of pacemaker initially placed in 2010, and changed 06/[address] [facility] Dr Ko History of tooth extraction most teeth removed S/P arteriovenous (AV) fistula creation 2008 left arm Family History Father , 59 Family history of diabetes mellitus Coronary heart disease Mother Cancer Other No family history of adverse response to anesthesia Social History Smoking Status: Never smoker Tobacco Type: Cigarettes Cigarettes Per Day: 9; Second Hand Exposure: No; Hx Alcohol Use: No Hx Substance Use: No Preferred Language: Polish Communication Ability: Effective Equal Opportunity Representative Required: No Beliefs That Will Affect Care: None Current Living Situation: Spouse Current Living Situation Comment: Lives at home with spouse can drive and cook his does the shopping Feels Safe at Home: Yes Assistive Devices: None Results & Data Results & Data ([facility]) Vital Signs (Past 12 Hours) Vital Signs Temp Pulse Pulse Resp BP Pulse Ox O2 Del Method 12/23/21 06:13 86 100 Nasal Cannula 12/23/21 05:30 83 22 100 12/23/21 05:30 113/77 12/23/21 05:20 76 99 12/23/21 05:20 106/67 12/23/21 05:10 85 21 100 12/23/21 05:10 117/77 12/23/21 05:00 86 18 99 12/23/21 05:00 121/86 12/23/21 04:50 77 99 12/23/21 04:50 119/76 12/23/21 04:40 78 20 12/23/21 04:40 109/69 12/23/21 04:30 75 99 12/23/21 04:30 113/68 12/23/21 04:25 83 17 100 12/23/21 04:25 114/67 12/23/21 04:20 76 26 H 89 L 12/23/21 04:20 106/69 12/23/21 04:16 91 12/23/21 04:16 103/69 12/23/21 04:15 90 12/23/21 03:53 98/56 L 12/23/21 03:52 94 12/23/21 03:50 71 17 93 12/23/21 03:50 98/55 L 12/23/21 03:49 74 16 93 12/23/21 03:49 92/57 L 12/23/21 03:44 79 20 12/23/21 03:43 84/57 L 12/23/21 04:28 78 98 Nasal Cannula 12/23/21 04:26 80 22 99 Nasal Cannula 12/23/21 03:15 Room Air 12/23/21 03:11 36.6 C 77 18 108/63 92 Room Air O2 Flow Rate 12/23/21 06:13 3 12/23/21 05:30 12/23/21 05:30 12/23/21 05:20 12/23/21 05:20 12/23/21 05:10 12/23/21 05:10 12/23/21 05:00 12/23/21 05:00 12/23/21 04:50 12/23/21 04:50 12/23/21 04:40 12/23/21 04:40 12/23/21 04:30 12/23/21 04:30 12/23/21 04:25 12/23/21 04:25 12/23/21 04:20 12/23/21 04:20 12/23/21 04:16 12/23/21 04:16 12/23/21 04:15 12/23/21 03:53 12/23/21 03:52 12/23/21 03:50 12/23/21 03:50 12/23/21 03:49 12/23/21 03:49 12/23/21 03:44 12/23/21 03:43 12/23/21 04:28 3 12/23/21 04:26 3 12/23/21 03:15 12/23/21 03:11 Laboratory Results Laboratory Results WBC 9.56 K/ul (4.8-10.8) 12/23/21 03:16 RBC 3.71 M/uL (4.63-6.08) L 12/23/21 03:16 Hgb 9.5 g/dl (14.0-18.0) L 12/23/21 03:16 Hct 30.4 % (40.1-51.0) L 12/23/21 03:16 MCV 81.9 fL (80.0-100.0) 12/23/21 03:16 MCH 25.6 pg (25.0-34.0) 12/23/21 03:16 MCHC 31.3 g/dL (32.0-36.0) L 12/23/21 03:16 RDW Std Deviation 56.2 fL (36.4-46.3) H 12/23/21 03:16 RDW Coeff of Armani 18.8 % (11.5-14.5) H 12/23/21 03:16 Plt Count 195 K/uL (130-400) 12/23/21 03:16 MPV 11.9 fL (9.4-12.4) 12/23/21 03:16 Immature Gran % (Auto) 1.3 % 12/23/21 03:16 Neut % (Auto) 51.4 % 12/23/21 03:16 Lymph % (Auto) 33.9 % 12/23/21 03:16 [place] % (Auto) 7.5 % 12/23/21 03:16 Eos % (Auto) 5.0 % 12/23/21 03:16 Baso % (Auto) 0.9 % 12/23/21 03:16 Neut # (Auto) 4.91 K/uL (1.4-6.5) 12/23/21 03:16 Lymph # (Auto) 3.24 K/uL (1.2-3.4) 12/23/21 03:16 [place] # (Auto) 0.72 K/uL (0.24-0.82) 12/23/21 03:16 Eos # (Auto) 0.48 K/uL (0-0.50) 12/23/21 03:16 Baso # (Auto) 0.09 K/uL (0-0.2) 12/23/21 03:16 Immature Gran # (Auto) 0.12 K/uL (0.00-0.02) H 12/23/21 03:16 Sodium 137 mmol/L (136-145) 12/23/21 03:16 Potassium 3.3 mmol/L (3.5-5.1) L 12/23/21 03:16 Chloride 101 mmol/L (98-107) 12/23/21 03:16 Carbon Dioxide 24 mmol/L (21-32) 12/23/21 03:16 Anion Gap 12 (3-11) H 12/23/21 03:16 BUN 41 mg/dl (6-23) H 12/23/21 03:16 Creatinine 2.59 mg/dl (0.6-1.4) H 12/23/21 03:16 Est Cr Clr Drug Dosing 25.8 ml/min 12/23/21 03:16 Est GFR ( Amer) 25.8 ml/min 12/23/21 03:16 Est GFR (Non-Af Amer) 22.2 ml/min 12/23/21 03:16 BUN/Creatinine Ratio 15.8 (10-20) 12/23/21 03:16 Glucose 149 mg/dl (70-99(Fasting)) H 12/23/21 03:16 Calcium 9.0 mg/dl (8.5-10.1) 12/23/21 03:16 Total Bilirubin 0.9 mg/dl (0.2-1.0) 12/23/21 03:16 AST 40 U/L (13-39) H 12/23/21 03:16 ALT 28 U/L (7-52) 12/23/21 03:16 Alkaline Phosphatase 223 U/L (34-104) H 12/23/21 03:16 Total Protein 5.9 gm/dl (6.0-8.3) L 12/23/21 03:16 Albumin 3.1 gm/dl (3.4-5.0) L 12/23/21 03:16 Globulin 2.8 gm/dl (2.5-4.0) 12/23/21 03:16 Albumin/Globulin Ratio 1.1 (0.9-2) 12/23/21 03:16 Diagnostic Findings Motion artifact limits evaluation. No acute intracranial hemorrhage. No evidence of intracranial mass, extra-axial fluid collection, or acute territorial infarct. White matter hypodensities, which are nonspecific but most likelyrelat ed to chronic small vessel ischemic changes. Global cerebral volume loss. Visualized paranasal sinuses and mastoid air cells are clear. No fracture or malalignment of the cervical spine. No prevertebral soft tissue swelling. There are degenerative changes of the spine. Nondisplaced anterior right first rib fracture. Enlarged heart, herniated into the left chest. Coronaryatherosclerosis. No heriberto cardial effusion. Cardiacwires in place. Normal aortawith mild atherosclerosis. Clear lungs. No fracture. Impacted minimallydisplaced subcapital right hip fracture. Markedlydilated urinarybladder measuring 22 x 13 x 19 cm(2900 cc). Other findings: Elevation of the right hemidiaphragm. Colonic interposition betweemthe liver and the hemidiaphragm noted. Cirrhotic appearance of the liver. Bilateral marked renal atrophy. 3 cmleft common iliac arteryaneurysm, 2 cmbilateral internal iliac arteryaneurysms. No aortic aneurysm. Severe degenerative spinal canal stenosis L4-L5 secondaryto a calcified herniated disc and facet hypertrophy.
[2021-12-23] MEDS ORDERED: LACTATED RINGER'S 1,000 ML IV ONE (06:28)
--- NOTE | 2021-12-23 06:43 | CT Scan Report ---
CT head/brain wo con CLINICAL HISTORY: 81 years-old Male with Trauma. Acute head trauma status post fall TECHNIQUE: Multiple axial CT images of the head were obtained without contrast. A dose lowering tech nique was utilized adhering to the principles of ALARA. COMPARISON: CT cervical spine of same day FINDINGS: No acute intracranial hemorrhage, midline shift, intracranial mass, hydrocephalus, territorial ischem ia or abnormal extra-axial collection. Involutional changes with white matter hypodensities suggestiv e of chronic microvascular ischemic disease. The study is motion degraded. The calvarium is intact. The paranasal sinuses, mastoid air cells, and middle ear cavities are clear . IMPRESSION: No acute intracranial abnormality or calvarial fracture ACT 112: Negative or not required by law. The above report was generated using voice recognition software. It may contain grammatical, syntax o r spelling errors. Electronically signed by: Marcel Andrade M.D. 12/23/2021 6:41 AM
--- NOTE | 2021-12-23 07:04 | CT Scan Report ---
CT cervical spine wo con CLINICAL HISTORY: 81 years-old Male with Trauma. Acute head and neck injury status post fall COMPARISON: Head CT of same day TECHNIQUE: Multiple axial CT images of the cervical spine were obtained without contrast. A dose low ering technique was utilized adhering to the principles of ALARA. FINDINGS: Multilevel degenerative changes of the cervical spine. Mild superior endplate compression o f T1 without retropulsion. No acute cervical spine fracture or subluxation identified. Multilevel nick ral foraminal narrowing of the cervical spine. Acute nondisplaced fracture of the right anterior firs t rib. The cervical soft tissues appear unremarkable. Right subclavian pacer. Atherosclerotic plaque of the carotid bulbs, left greater than right. The visualized lung apices appear clear. IMPRESSION: 1. No acute cervical spine fracture or subluxation. 2. Acute nondisplaced fracture of the right anterior first rib. 3. Mild superior endplate compression at T1 without retropulsion is technically age-indeterminate how ever is favored to be chronic. ACT 112: Negative or not required by law. The above report was generated using voice recognition software. It may contain grammatical, syntax o r spelling errors. Electronically signed by: Marcel Andrade M.D. 12/23/2021 7:03 AM
[2021-12-23 07:05] LABS: Appearance Urine Clear (Clear); Bilirubin Urine Negative (Negative); Blood Urine Negative (Negative); Color Urine Yellow; Glucose Urine UA Negative (Negative); Ketones Urine Negative (Negative); Leukocyte Esterase Urine Negative (Negative); Nitrite Urine Negative (Negative); Protein Urine Negative (Negative); Specific Gravity Urine 1.008 (1.000-1.030); Urobilinogen Urine Negative (Negative)
[2021-12-23] MEDS ORDERED: PROMETHAZINE HCL 12.5 MG in SODIUM CHLORIDE 0.9% 50 ML IV PRN (07:11)
[2021-12-23] MEDS ORDERED: HYDROmorphone INJ 0.5 MG/0.5 ML SYR IV PRN ×2 (07:11→08:41)
--- NOTE | 2021-12-23 07:24 | History & Physical Report ---
Date of Service December 23, 2021 Assessment & Plan (1) Syncope: Plan: Likely secondary to orthostasis given hypotension documented at patient's home Rule out arrhythmia/pacemaker dysfunction, hx trifascicular block status post PPM, history of paroxysmal atrial flutter as per records Traumatic right hip fracture secondary to fall chronic systolic heart failure (EF 50%, TTE 2021), patient euvolemic to dry hx presumptive CAD DM2 on oral medications, well-controlled as of recent hemoglobin A1c of 6.1 last October 2021 CRI, creatinine at baseline chronic anemia, slight hemoglobin drop from baseline Hypokalemia secondary to diuretic Rx past tobacco abuse Medical telemetry IVF Decrease maintenance beta-chip for now Hold home diuretics for now given borderline BP Pacemaker interrogation Cardiology consult Re: Orthostatic hypotension, medication management Orthopedics consult Re: Right hip fracture N.p.o. until patient seen by Orthopedics in anticipation of procedure. Replace potassium Follow H&H, transfuse PRBC if hemoglobin less than 8 and or for symptomatic anemia ISS BG goal 1 10-1 40 DVT prophylaxis. SCDs Re: Possible procedure Full code Patient request for to be updated of plan of care. Ms. Marci Charles, contact #[phone]. Text document was generated using Canesta voice recognition software. It may contain grammatical or spelling errors. Kindly contact undersigned for clarification of any documentation item in question. History of Present Illness Chief Complaint: Syncope, right hip pain Primary Care Provider: Anna Abebe MD History obtained from patient and records. Medical history significant for chronic systolic heart failure (EF 50%, TTE 2021 ), trifascicular block status post PPM, paroxysmal atrial flutter, presumptive CAD, hypertension, DM2 on oral medications, CRI (baseline creatinine 2s), chronic anemia (baseline hemoglobin 10-11), past tobacco abuse. Last confinement August 2021 for post polypectomy L GIB. Aspirin held on discharge but later resumed outpatient. Patient noted dizziness/lightheadedness on the upright position the last 2 weeks. No headache. No chest pain, no SOB. Unwitnessed syncopal event while getting up to go to the bathroom last night. Patient found on the floor unresponsive by . Patient subsequently woke up. Achy right hip pain noted worse on movement. No headache, no chest pain, no SOB, no tongue injury, no urinary incontinence. Patient denies abdominal pain, black, bloody stools. Initial SBP upon arrival of EMS 70s. Patient brought to the ER for evaluation. Medical History as above Surgical History : Vascular procedure, PPM, appendectomy Family History : DM, ESRD, heart disease Personal/Social history : Past tobacco abuse, no EtOH intake, retired senior mechanical technician, lives with Allergies Allergy/AdvReac Type Severity Reaction Status Date / Time lisinopril AdvReac Mild ALTERED Verified 12/23/21 03:10 KIDNEY FUNCTIONS Home Medications Medication Instructions Recorded Confirmed Type allopurinol 300 mg tablet 300 mg PO DAILY 09/09/21 12/23/21 History atorvastatin 40 mg tablet 40 mg PO HS 09/09/21 12/23/21 History furosemide 40 mg tablet See Rx Instructions .Route .COMPLEX 09/09/21 12/23/21 History metoprolol succinate 25 mg 25 mg PO BID 09/09/21 12/23/21 History tablet,extended release 24 hr pioglitazone 15 mg tablet 15 mg PO DAILY 09/09/21 12/23/21 History aspirin 81 mg PO DAILY 12/23/21 12/23/21 History multivitamin 1 tab PO DAILY 12/23/21 12/23/21 History Past Med/Surg History Medical History Chronic heart failure Diabetes mellitus, type 2 NIDDM GERD (gastroesophageal reflux disease) Gout Hearing deficit Hyperlipidemia Hypertension Pacemaker Medtronic. [place] [facility] [place] Dr. Yan. last checked remotely ~05/2021 Shortness of breath on exertion reason for inhaler Stage 4 chronic kidney disease Left UE AVF in place- not on dialysis yet Surgical History History of appendectomy History of colonoscopy History of pacemaker initially placed in 2010, and changed 06/[address] [facility] Dr Ko History of tooth extraction most teeth removed S/P arteriovenous (AV) fistula creation 2008 left arm Family History Father , 59 Family history of diabetes mellitus Coronary heart disease Mother Cancer Other No family history of adverse response to anesthesia Social History Smoking Status: Never smoker Tobacco Type: Cigarettes Cigarettes Per Day: 9; Second Hand Exposure: No; Hx Alcohol Use: No Hx Substance Use: No Preferred Language: Welsh Communication Ability: Effective Manager Talent Required: No Beliefs That Will Affect Care: None Current Living Situation: Spouse Current Living Situation Comment: Lives at home with spouse can drive and cook his does the shopping Feels Safe at Home: Yes Assistive Devices: None Review of Systems Review of Systems: As per HPI, all other systems reviewed and negative Physical Exam Physical Exam: GENERAL: Comfortable, pleasant, obese, slightly hard of hearing, no respiratory distress SKIN: Pallor, warm HEENT: Pale palpebral conjunctivae, no ptosis, dry buccal mucosa NECK : Supple, no tenderness CHEST : CTA, no tenderness HEART : RRR, no obvious murmurs ABDOMEN: Some distention, nontender EXTREMITIES : Minimal LE swelling, right hip tenderness, no other conspicuous deformities noted NEUROLOGIC : Coherent, no facial asymmetry, slightly hard of hearing, gait and stance not assessed Results & Data Results & Data ([facility]) Vital Signs (Past 12 Hours) Vital Signs Temp Pulse Pulse Resp BP BP Pulse Ox 12/23/21 07:15 78 16 117/74 100 12/23/21 06:13 86 100 12/23/21 05:30 83 22 100 12/23/21 05:30 113/77 12/23/21 05:20 76 99 12/23/21 05:20 106/67 12/23/21 05:10 85 21 100 12/23/21 05:10 117/77 12/23/21 05:00 86 18 99 12/23/21 05:00 121/86 12/23/21 04:50 77 99 12/23/21 04:50 119/76 12/23/21 04:40 78 20 12/23/21 04:40 109/69 12/23/21 04:30 75 99 12/23/21 04:30 113/68 12/23/21 04:25 83 17 100 12/23/21 04:25 114/67 12/23/21 04:20 76 26 H 89 L 12/23/21 04:20 106/69 12/23/21 04:16 91 12/23/21 04:16 103/69 12/23/21 04:15 90 12/23/21 03:53 98/56 L 12/23/21 03:52 94 12/23/21 03:50 71 17 93 12/23/21 03:50 98/55 L 12/23/21 03:49 74 16 93 12/23/21 03:49 92/57 L 12/23/21 03:44 79 20 12/23/21 03:43 84/57 L 12/23/21 04:28 78 98 12/23/21 04:26 80 22 99 12/23/21 03:15 12/23/21 03:11 36.6 C 77 18 108/63 92 O2 Del Method O2 Flow Rate 12/23/21 07:15 Nasal Cannula 3 12/23/21 06:13 Nasal Cannula 3 12/23/21 05:30 12/23/21 05:30 12/23/21 05:20 12/23/21 05:20 12/23/21 05:10 12/23/21 05:10 12/23/21 05:00 12/23/21 05:00 12/23/21 04:50 12/23/21 04:50 12/23/21 04:40 12/23/21 04:40 12/23/21 04:30 12/23/21 04:30 12/23/21 04:25 12/23/21 04:25 12/23/21 04:20 12/23/21 04:20 12/23/21 04:16 12/23/21 04:16 12/23/21 04:15 12/23/21 03:53 12/23/21 03:52 12/23/21 03:50 12/23/21 03:50 12/23/21 03:49 12/23/21 03:49 12/23/21 03:44 12/23/21 03:43 12/23/21 04:28 Nasal Cannula 3 12/23/21 04:26 Nasal Cannula 3 12/23/21 03:15 Room Air 12/23/21 03:11 Room Air Laboratory Results Laboratory Results WBC 9.56 K/ul (4.8-10.8) 12/23/21 03:16 RBC 3.71 M/uL (4.63-6.08) L 12/23/21 03:16 Hgb 9.5 g/dl (14.0-18.0) L 12/23/21 03:16 Hct 30.4 % (40.1-51.0) L 12/23/21 03:16 MCV 81.9 fL (80.0-100.0) 12/23/21 03:16 MCH 25.6 pg (25.0-34.0) 12/23/21 03:16 MCHC 31.3 g/dL (32.0-36.0) L 12/23/21 03:16 RDW Std Deviation 56.2 fL (36.4-46.3) H 12/23/21 03:16 RDW Coeff of Armani 18.8 % (11.5-14.5) H 12/23/21 03:16 Plt Count 195 K/uL (130-400) 12/23/21 03:16 MPV 11.9 fL (9.4-12.4) 12/23/21 03:16 Immature Gran % (Auto) 1.3 % 12/23/21 03:16 Neut % (Auto) 51.4 % 12/23/21 03:16 Lymph % (Auto) 33.9 % 12/23/21 03:16 [place] % (Auto) 7.5 % 12/23/21 03:16 Eos % (Auto) 5.0 % 12/23/21 03:16 Baso % (Auto) 0.9 % 12/23/21 03:16 Neut # (Auto) 4.91 K/uL (1.4-6.5) 12/23/21 03:16 Lymph # (Auto) 3.24 K/uL (1.2-3.4) 12/23/21 03:16 [place] # (Auto) 0.72 K/uL (0.24-0.82) 12/23/21 03:16 Eos # (Auto) 0.48 K/uL (0-0.50) 12/23/21 03:16 Baso # (Auto) 0.09 K/uL (0-0.2) 12/23/21 03:16 Immature Gran # (Auto) 0.12 K/uL (0.00-0.02) H 12/23/21 03:16 Sodium 137 mmol/L (136-145) 12/23/21 03:16 Potassium 3.3 mmol/L (3.5-5.1) L 12/23/21 03:16 Chloride 101 mmol/L (98-107) 12/23/21 03:16 Carbon Dioxide 24 mmol/L (21-32) 12/23/21 03:16 Anion Gap 12 (3-11) H 12/23/21 03:16 BUN 41 mg/dl (6-23) H 12/23/21 03:16 Creatinine 2.59 mg/dl (0.6-1.4) H 12/23/21 03:16 Est Cr Clr Drug Dosing 25.8 ml/min 12/23/21 03:16 Est GFR ( Amer) 25.8 ml/min 12/23/21 03:16 Est GFR (Non-Af Amer) 22.2 ml/min 12/23/21 03:16 BUN/Creatinine Ratio 15.8 (10-20) 12/23/21 03:16 Glucose 149 mg/dl (70-99(Fasting)) H 12/23/21 03:16 Calcium 9.0 mg/dl (8.5-10.1) 12/23/21 03:16 Magnesium 2.0 mg/dl (1.7-2.4) 12/23/21 03:16 Total Bilirubin 0.9 mg/dl (0.2-1.0) 12/23/21 03:16 AST 40 U/L (13-39) H 12/23/21 03:16 ALT 28 U/L (7-52) 12/23/21 03:16 Alkaline Phosphatase 223 U/L (34-104) H 12/23/21 03:16 Total Protein 5.9 gm/dl (6.0-8.3) L 12/23/21 03:16 Albumin 3.1 gm/dl (3.4-5.0) L 12/23/21 03:16 Globulin 2.8 gm/dl (2.5-4.0) 12/23/21 03:16 Albumin/Globulin Ratio 1.1 (0.9-2) 12/23/21 03:16 Urine Color Yellow 12/23/21 06:10 Urine Appearance Clear (Clear) 12/23/21 06:10 Urine pH 7.0 (4.5-7.5) 12/23/21 06:10 Ur Specific [place] 1.008 (1.000-1.030) 12/23/21 06:10 Urine Protein Negative (Negative) 12/23/21 06:10 Urine Glucose (UA) Negative (Negative) 12/23/21 06:10 Urine Ketones Negative (Negative) 12/23/21 06:10 Urine Blood Negative (Negative) 12/23/21 06:10 Urine Nitrite Negative (Negative) 12/23/21 06:10 Urine Bilirubin Negative (Negative) 12/23/21 06:10 Urine Urobilinogen Negative (Negative) 12/23/21 06:10 Ur Leukocyte Esterase Negative (Negative) 12/23/21 06:10 SARS-CoV-2, RNA, NAAT NEGATIVE (NEGATIVE) 12/23/21 06:38 Diagnostic Findings Motion artifact limits evaluation. No acute intracranial hemorrhage. No evidence of intracranial mass, extra-axial fluid collection, or acute territorial infarct. White matter hypodensities, which are nonspecific but most likelyre lated to chronic small vessel ischemic changes. Global cerebral volume loss. Visualized paranasal sinuses and mastoid air cells are clear. No fracture or malalignment of the cervical spine. No prevertebral soft tissue swelling. There are degenerative changes of the spine. Nondisplaced anterior right first rib fracture. Enlarged heart, herniated into the left chest. Coronaryatherosclerosis. No pe ricardial effusion. Cardiacwires in place. Normal aortawith mild atherosclerosis. Clear lungs. No fracture. Impacted minimallydisplaced subcapital right hip fracture. Markedlydilated urinarybladder measuring 22 x 13 x 19 cm(2900 cc). Other findings: Elevation of the right hemidiaphragm. Colonic interposition betweemthe liver and the hemidiaphragm noted. Cirrhotic appearance of the liver. Bilateral marked renal atrophy. 3 cmleft common iliac arteryaneurysm, 2 cmbilateral internal iliac arteryaneurysms. No aortic aneurysm. Severe degenerative spinal canal stenosis L4-L5 secondaryto a calcified herniated disc and facet hypertrophy. EKG as per my interpretation: Rate 80, paced rhythm Code Status & VTE Plan VTE Prophylaxis Plan VTE Prophylaxis will be ordered: Yes
--- NOTE | 2021-12-23 07:28 | CT Scan Report ---
CHEST CT WITH CONTRAST CT DOSE: 3384.40 mGy.cm HISTORY: Acute chest trauma Trauma TECHNIQUE: Multiaxial CT images of the chest were performed following the IV administration of 45 cc of Optiray. A dose lowering technique was utilized adhering to the principles of ALARA. COMPARISON: CT abdomen and pelvis of same day FINDINGS: No thyroid nodule. Cardiomegaly with extensive coronary artery calcifications. Right subcla vian pacer. No pericardial effusion. Borderline enlarged 10 mm right hilar lymph node, likely benign. No pneumothorax, pleural effusion, airspace consolidation or overt pulmonary edema. Mild subsegmental bibasilar atelectasis. No suspicious pulmonary nodules or masses identified. The central airways are patent. The spleen appears enlarged. Cirrhotic morphology of the liver. Cholelithiasis. Mild wall thickening of the hepatic flexure which may be decompressed. Mild nonspecific distal esophageal wall thickening. Gynecomastia. Acute nondisplaced fracture of the anterior right first rib, image 62. Acute comminute d intra-articular fracture with only minimal displacement involving the distal right clavicle. Acute nondisplaced fracture of the anterior right second rib. No additional acute fracture identified. IMPRESSION: 1. Acute intra-articular mildly displaced fracture of the distal right clavicle with acute nondisplac ed fractures of the right first and second ribs. These findings were called/faxed to the emergency de partment at time of dictation. 2. No pneumothorax. 3. Cardiomegaly. 4. Please refer to the CT abdomen and pelvis study of same day for additional findings. ACT 112: Negative or not required by law. Electronically signed by: Marcel Andrade M.D. 12/23/2021 7:27 AM
--- NOTE | 2021-12-23 07:39 | CT Scan Report ---
CT OF THE ABDOMEN AND PELVIS WITH CONTRAST CLINICAL HISTORY: Trauma. COMPARISON STUDY: None. TECHNIQUE: Following IV administration of 45 mL of Optiray, axial images of the abdomen and pelvis we re obtained from the lung bases to the proximal femurs. Images were reviewed in the axial, sagittal, and coronal planes. IV contrast was administered without complication. Automated exposure control wa s utilized for the study. A dose lowering technique was utilized adhering to the principles of ALARA . FINDINGS: Please note that the chest CT will be reported separately. No hemoperitoneum or pneumoperit oneum is noted. The liver is cirrhotic. There is trace perihepatic ascites. No hepatic lesions are id entified on this venous phase exam. Mild splenic lesion is noted. There is no evidence for traumatic injury to the liver, spleen, adrenal glands, kidneys or pancreas. No biliary or pancreatic ductal dil atation is present. There is moderate to marked bilateral renal atrophy. Small bilateral renal lesion s favor cysts. There is no evidence for a bowel obstruction. Apparent wall thickening of the ascendin g colon is likely due to underdistention. The bladder is markedly distended. There is no hydronephros is. There is no lymphadenopathy. Major vasculature is patent. 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 There is a 2 cm aneurysm of the left internal iliac artery. Note is made of a 2.1 cm aneurysm of the right common iliac artery and a 2.4 cm aneurysm of the right internal iliac artery . The internal iliac artery aneurysms contain moderate mural thrombus. No acute lumbar spine fracture is present. Note is made of an acute impacted mildly displaced subcapital right femoral neck fractur e. No additional acute fractures are identified on this examination. IMPRESSION: 1. Acute impacted mildly displaced subcapital right femoral neck fracture. 2. No evidence for traumatic injury to the solid abdominal viscera. 3. Markedly distended bladder. 4. Cirrhosis. Mild splenomegaly. 5. 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 ACT 112: Negative or not required by law. Electronically signed by: Ankush Street M.D. 12/23/2021 7:38 AM
--- NOTE | 2021-12-23 08:21 | Electrocardiogram Report ---
Test Reason : Blood Pressure : / mmHG Vent. Rate : 078 BPM Atrial Rate : 078 BPM P-R Int : 134 ms QRS Dur : 146 ms QT Int : 484 ms P-R-T Axes : 000 208 105 degrees QTc Int : 551 ms Poor data quality, interpretation may be adversely affected AV dual-paced rhythm Abnormal ECG When compared with ECG of 09-SEP-2021 16:13, No significant change was found Confirmed by Kenneth Plasencia ([id number]) on 12/23/2021 8:19:45 AM Referred By: REFERRED SELF Confirmed By:Rocco Plasencia
[2021-12-23] MEDS ORDERED: GLUCAGON FOR INJ 1 MG VIAL SQ PRN (09:03)
[2021-12-23] MEDS ORDERED: bisacodyL 10 MG SUPP PR PRN (09:03)
[2021-12-23] MEDS ORDERED: NALOXONE HCL 0.4 MG/1 ML VIAL/CARP IV PRN (09:03)
[2021-12-23] MEDS ORDERED: CARBOHYDRATES FOR HYPOGLYCEMIA PO PRN (09:03)
[2021-12-23] MEDS ORDERED: GLUCOSE 40% GEL 15 GM TUBE PO PRN (09:03)
[2021-12-23] MEDS ORDERED: DEXTROSE 50% 50 ML SYRINGE IV PRN (09:03)
[2021-12-23] MEDS ORDERED: GLUCOSE 10 TAB/TUBE PO PRN (09:03)
[2021-12-23] MEDS: INSULIN ASPART PER UNIT SC SCH ×4 (09:27→20:22)
[2021-12-23] MEDS ORDERED: POTASSIUM CHLORIDE CRTAB 20 MEQ TABCR PO ONE (09:30)
[2021-12-23] MEDS: ASPIRIN 81 MG ECTAB PO SCH (09:32)
[2021-12-23] MEDS: allopurinoL 300 MG TAB PO SCH (09:33)
[2021-12-23] MEDS: METOPROLOL SUCC 25MG EXT REL TAB PO SCH (09:33)
[2021-12-23] MEDS: MULTIVITAMIN TAB PO SCH (09:35)
--- NOTE | 2021-12-23 09:35 | Cardiology Consultation ---
Date of Consultation December 23, 2021 Assessment & Plan (1) Syncope: (2) Hypotension: (3) HFrEF (heart failure with reduced ejection fraction): (4) Biventricular cardiac pacemaker in situ: (5) CAD (coronary artery disease): (6) Anemia: (7) CKD (chronic kidney disease): (8) AV fistula: Plan Medically complex 81-year-old male with a history of chronic systolic CHF with presumed CAD status post biventricular pacemaker. Patient with concerns of lightheadedness and dizziness x1 month with a syncopal episode last evening. Syncopal episode likely in the setting of orthostatic hypotension symptoms and blood pressure improved with holding of diuretic and reduction in beta-chip. No concerning arrhythmias noted on pacemaker interrogation while inpatient. Echo done last month as an outpatient was stable. -Blood pressures improved, agree with continuing to hold Lasix at this time. Monitor for symptoms of fluid retention. Recommend daily weights. 2 g sodium restriction. -Heart rate controlled. Patient does carry a history of nonsustained VT. Agree with restarting of metoprolol. Okay to continue 12.5 mg daily, true heart rates increase or ectopy is noted on telemetry we will consider increase in dose at this time. Patient normally maintained on 25 mg twice daily. Metoprolol succinate should not greatly affect blood pressure-we will increase pending clinical course. -Known CKD stage IV with AV fistula of the left arm. Renal function has been stable. Hypokalemia noted on labs, replaced with a total of 80 mEq this morning. Continue to trend BMP. Potassium 4.0. -Will defer to PCP regarding management of anemia as well as his hip fracture. Agree with orthopedics consult. Case discussed with Dr. Montemayor. Will follow. Supervising Physician Co-Signing Physician Notes Patient seen and examined with ALEXX Chairez. Agree with findings and assessment as above. History of Present Illness Reason for Consultation: Syncope Requesting Physician: Brittani Bacon Attending Physician: David Reece MD History of Present Illness 81 year old male initially presented to the ED due to an unwitnessed fall last evening when the patient go up to go to the restroom. Patient primarily follows with Kit Gonsalez PA-C as an outpatient, last seen on 11/30. Patient was experiencing dizziness/lightheadedness x4 weeks. When EMS arrived showed systolics in the 70s. Unfortunately patient did fracture his right hip during the fall. Diuretics and BB held. Labs: anemia- hgb of 9.5, potassium low 3.3, renal function stable with scr of 2.5, lactate elevated at 2.[address]: 1. Acute impacted mildly displaced subcapital right femoral neck fracture. 2. No evidence for traumatic injury to the solid abdominal viscera. 3. Markedly distended bladder. 4. Cirrhosis. Mild splenomegaly. 5. 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 Chest CT: Cardiomegaly with extensive coronary artery calcifications. Device interrogation 12/23: Without significant dysrhythmia 12/23: Upon entrance into the room patient was resting comfortably in bed. Notes that his main concern is regarding significant right leg pain. Does not remember the fall. Believes that he may have been somewhat lightheaded beforehand. Denies any exertional chest pain or unusual shortness of breath. No palpitations. No telemetry available to view at this time, patient being set up during evaluation. Metoprolol succinate was reduced to 12.5 milligrams daily, normally maintained on 25 mg twice daily. Lasix on hold, normally maintained on 40 mg daily. On admission systolics are averaging in the 80s to 90s. Blood pressures this morning showing systolics in the 110-118s. Echo done as an outpatient on 11/23: LVEF 50 to 54% with moderate concentric LVH. Septal motion consistent with right ventricular pacemaker, otherwise normal. Moderate aortic sclerosis without stenosis. Left atrium severely dilated. PMH: 1.History of trifasicular block s/p permanent pacemaker implantation using a Unique [employer]gu[employer] Model - [id number] Serial # [id number] by Dr. Ovalle on 12/06/10. Upgrade to BIV PPM 07/15/2020 2.Mild to moderate reduction in LV systolic function, status post July 15, 2020 device upgrade to a biventricular rate responsive permanent pacemaker by Dr. Heller at [facility]. 3.Presumed underlying coronary artery disease. 4.Asymptomatic nonsustained ventricular tachycardia 5.Possible short-lived episodes of paroxysmal atrial flutter/flutter on device interrogation, with risks of anticoagulation felt to be greater than the benefit. 6.Dyslipidemia. 7.History of abnormal LFT's followed by GI. 8.Type II diabetes mellitus with retinopathy 9.Chronic kidney disease stage IV with a LUE AV fistula. 10.Anemia. 11.BPH 12.Memory impairment. 13.GERD Allergies Allergy/AdvReac Type Severity Reaction Status Date / Time lisinopril AdvReac Mild ALTERED Verified 12/23/21 03:10 KIDNEY FUNCTIONS Home Medications Medication Instructions Recorded Confirmed Type allopurinol 300 mg tablet 300 mg PO DAILY 09/09/21 12/23/21 History atorvastatin 40 mg tablet 40 mg PO HS 09/09/21 12/23/21 History furosemide 40 mg tablet See Rx Instructions .Route .COMPLEX 09/09/21 12/23/21 History metoprolol succinate 25 mg 25 mg PO BID 09/09/21 12/23/21 History tablet,extended release 24 hr pioglitazone 15 mg tablet 15 mg PO DAILY 09/09/21 12/23/21 History aspirin 81 mg PO DAILY 12/23/21 12/23/21 History multivitamin 1 tab PO DAILY 12/23/21 12/23/21 History Patient History Medical History Chronic heart failure Diabetes mellitus, type 2 NIDDM GERD (gastroesophageal reflux disease) Gout Hearing deficit Hematochezia Hyperlipidemia Pacemaker Medtronic. [place] secondary to complete heart [place] [facility] [place] Dr. Yan. last checked remotely ~05/2021 Shortness of breath on exertion reason for inhaler Surgical History History of appendectomy History of colonoscopy History of pacemaker initially placed in 2010, and changed 06/2020 at [facility] Dr Ko History of tooth extraction most teeth removed S/P arteriovenous (AV) fistula creation 2008 left arm Family History Father , 59 Family history of diabetes mellitus Coronary heart disease Mother Cancer Other No family history of adverse response to anesthesia Social History Smoking Status: Never smoker Tobacco Type: Cigarettes Cigarettes Per Day: 9; Second Hand Exposure: No; Hx Alcohol Use: No Hx Substance Use: No Preferred Language: Swedish Communication Ability: Effective 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 Beliefs That Will Affect Care: None Current Living Situation: Spouse Current Living Situation Comment: Lives at home with spouse can drive and cook his does the shopping Feels Safe at Home: Yes Assistive Devices: None Review of Systems Review of Systems: All systems reviewed & are unremarkable except as noted in HPI & below Physical Exam Constitutional: WD/WN, vitals as above no acute distress Eyes: PERRL, conjunctivae normal, anicteric sclerae Neck: normal visual inspection and trachea midline Respiratory: normal respiratory effort, lungs clear to auscultation no respiratory distress Cardiovascular: Rate/Rhythm: regular rate and regular rhythm Heart Sounds: normal S1, normal S2 and + murmur (Grade II/ systolic ejection murmur.) V essels: no JVD Extremities: + AV fistula (MARGA); no edema Chest (Breasts): Chest: + pacemaker (Right upper chest ) Gastrointestinal (Abdomen): normal bowel sounds, soft, nontender, no hepatosplenomegaly Skin: no rashes, warm and dry Psychiatric: A+Ox3, euthymic affect Results & Data ([facility]) Vital Signs (Past 12 Hours) Vital Signs Temp Pulse Pulse Resp BP BP Pulse Ox 12/23/21 09:05 36.5 C 70 19 118/79 96 12/23/21 09:04 12/23/21 07:15 78 16 117/74 100 12/23/21 06:13 86 100 12/23/21 05:30 83 22 100 12/23/21 05:30 113/77 12/23/21 05:20 76 99 12/23/21 05:20 106/67 12/23/21 05:10 85 21 100 12/23/21 05:10 117/77 12/23/21 05:00 86 18 99 12/23/21 05:00 121/86 12/23/21 04:50 77 99 12/23/21 04:50 119/76 12/23/21 04:40 78 20 12/23/21 04:40 109/69 12/23/21 04:30 75 99 12/23/21 04:30 113/68 12/23/21 04:25 83 17 100 12/23/21 04:25 114/67 12/23/21 04:20 76 26 H 89 L 12/23/21 04:20 106/69 12/23/21 04:16 91 12/23/21 04:16 103/69 12/23/21 04:15 90 12/23/21 03:53 98/56 L 12/23/21 03:52 94 12/23/21 03:50 71 17 93 12/23/21 03:50 98/55 L 12/23/21 03:49 74 16 93 12/23/21 03:49 92/57 L 12/23/21 03:44 79 20 12/23/21 03:43 84/57 L 12/23/21 04:28 78 98 12/23/21 04:26 80 22 99 12/23/21 03:15 12/23/21 03:11 36.6 C 77 18 108/63 92 O2 Del Method O2 Flow Rate 12/23/21 09:05 Nasal Cannula 2 12/23/21 09:04 Nasal Cannula 2 12/23/21 07:15 Nasal Cannula 3 12/23/21 06:13 Nasal Cannula 3 12/23/21 05:30 12/23/21 05:30 12/23/21 05:20 12/23/21 05:20 12/23/21 05:10 12/23/21 05:10 12/23/21 05:00 12/23/21 05:00 12/23/21 04:50 12/23/21 04:50 12/23/21 04:40 12/23/21 04:40 12/23/21 04:30 12/23/21 04:30 12/23/21 04:25 12/23/21 04:25 12/23/21 04:20 12/23/21 04:20 12/23/21 04:16 12/23/21 04:16 12/23/21 04:15 12/23/21 03:53 12/23/21 03:52 12/23/21 03:50 12/23/21 03:50 12/23/21 03:49 12/23/21 03:49 12/23/21 03:44 12/23/21 03:43 12/23/21 04:28 Nasal Cannula 3 12/23/21 04:26 Nasal Cannula 3 12/23/21 03:15 Room Air 12/23/21 03:11 Room Air Laboratory Results Cardiac Enzymes 12/23/21 Range/Units 03:16 AST 40 H (13-39) U/L CBC 12/23/21 Range/Units 03:16 WBC 9.56 (4.8-10.8) K/ul RBC 3.71 L (4.63-6.08) M/uL Hgb 9.5 L (14.0-18.0) g/dl Hct 30.4 L (40.1-51.0) % Plt Count 195 (130-400) K/uL Neut # (Auto) 4.91 (1.4-6.5) K/uL Lymph # (Auto) 3.24 (1.2-3.4) K/uL [place] # (Auto) 0.72 (0.24-0.82) K/uL Eos # (Auto) 0.48 (0-0.50) K/uL Baso # (Auto) 0.09 (0-0.2) K/uL Comprehensive Metabolic Panel 12/23/21 Range/Units 03:16 Sodium 137 (136-145) mmol/L Potassium 3.3 L (3.5-5.1) mmol/L Chloride 101 (98-107) mmol/L Carbon Dioxide 24 (21-32) mmol/L BUN 41 H (6-23) mg/dl Creatinine 2.59 H (0.6-1.4) mg/dl Glucose 149 H (70-99(Fasting)) mg/dl Calcium 9.0 (8.5-10.1) mg/dl AST 40 H (13-39) U/L ALT 28 (7-52) U/L Alkaline Phosphatase 223 H (34-104) U/L Total Protein 5.9 L (6.0-8.3) gm/dl Albumin 3.1 L (3.4-5.0) gm/dl Intake and Output 12/22/21 12/23/21 12/23/21 22:59 06:59 14:59 Intake Total 50 / 50 Output Total 4250 / 4250 Balance -4200 / -4200 Intake: IV 50 / 50 Right Forearm 50 / 50 Output: Urine Amount (Catheter) 4250 / 4250 Taylor/Indwelling 4250 / 4250 Other: Weight 101.1 kg Weight Measurement Method Built in [facility] Diagnostic Findings November 23, 2021 TTE Interpretation Summary (as per Dr. Yan): The left ventricular cavity size is normal. The LV wall thickness is moderately increased (concentric). The septal motion is abnormal consistent with right ventricular pacemaker. The regional left ventricular wall motion is otherwise normal. The qualitative LV ejection fraction is 50-54% (normal). Moderate aortic valve sclerosis is present. Aortic stenosis is absent. The left atrium is severely enlarged (>48 ml/m^2,). In comparison to June 18, 2020, interventricular septum is less dyssynergic and overall systolic function has improved.
--- NOTE | 2021-12-23 12:34 | XRay Report ---
XR hip RT min 2V CLINICAL HISTORY: Hip fracture. COMPARISON: CT of the abdomen and pelvis performed earlier. FINDINGS: Note is again made of an impacted mildly displaced subcapital right femoral neck fracture. No additional fractures are identified on this examination. There is severe right hip osteoarthritis . IMPRESSION: Acute impacted mildly displaced subcapital right femoral neck fracture. ACT 112: Negative or not required by law. Electronically signed by: Ankush Street M.D. 12/23/2021 12:33 PM
[2021-12-23] MEDS: ACETAMINOPHEN 325 MG TAB PO PRN (14:48)
--- NOTE | 2021-12-23 15:26 | Orthopedic Consultation ---
Date of Service December 23, 2021 Assessment & Plan (1) Displaced fracture of right femoral neck: (2) Closed right clavicular fracture: Plan 81-year-old male with complex medical history with a displaced right femoral neck fracture. Incidentally also has a right clavicle fracture at the distal side which will be nonoperative with a sling. I was able to meet with the patient and his at the bedside today. I explained the diagnosis, prognosis and treatment options. I recommendation is for hip fracture surgery which would be a cemented hemiarthroplasty. With medical clearance, proceed with surgery soon as possible. This will likely be tomorrow 12/24/2021. Please have n.p.o. at midnight. I discussed the risk and benefits surgery in detail with the patient and his . Discussed risks include but not limited to infection, neurovascular injury, need for repeat or revision surgeries, hip instability, leg length discrepancies, pain syndromes, blood clots and complications related to anesthesia. They asked appropriate questions, demonstrated good understanding, and are agreeable proceed with surgery. History of Present Illness Reason for Consultation: Right hip fracture Requesting Physician: . Attending Physician: David Reece MD 81-year-old male with complex medical history including renal and heart failure admitted to the hospital with hip pain following a fall at home in his bathroom. He reports he does not remember much. He thinks he may have passed out. Pain is located in his hip and groin. He also has pain proximal about the shoulder. No skin disruption. Has ecchymosis about the shoulder. No prior history of hip pain or need for treatment. Lives at home with his . Allergies Allergy/AdvReac Type Severity Reaction Status Date / Time lisinopril AdvReac Mild ALTERED Verified 12/23/21 03:10 KIDNEY FUNCTIONS Home Medications Medication Instructions Recorded Confirmed Type allopurinol 300 mg tablet 300 mg PO DAILY 09/09/21 12/23/21 History atorvastatin 40 mg tablet 40 mg PO HS 09/09/21 12/23/21 History furosemide 40 mg tablet See Rx Instructions .Route .COMPLEX 09/09/21 12/23/21 History metoprolol succinate 25 mg 25 mg PO BID 09/09/21 12/23/21 History tablet,extended release 24 hr pioglitazone 15 mg tablet 15 mg PO DAILY 09/09/21 12/23/21 History aspirin 81 mg PO DAILY 12/23/21 12/23/21 History multivitamin 1 tab PO DAILY 12/23/21 12/23/21 History Past Med/Surg History Medical History Chronic heart failure Diabetes mellitus, type 2 NIDDM GERD (gastroesophageal reflux disease) Gout Hearing deficit Hematochezia Hyperlipidemia Pacemaker Medtronic. Placed secondary to complete heart block in 2010 on the right side @ [place] ---follows with Dr. Yan. last checked remotely ~05/2021 Shortness of breath on exertion reason for inhaler Surgical History History of appendectomy History of colonoscopy History of pacemaker initially placed in 2010, and changed 06/[address] [facility] Dr Ko History of tooth extraction most teeth removed S/P arteriovenous (AV) fistula creation 2008 left arm Family History Father , 59 Family history of diabetes mellitus Coronary heart disease Mother Cancer Other No family history of adverse response to anesthesia Social History Smoking Status: Never smoker Tobacco Type: Cigarettes Cigarettes Per Day: 9; Second Hand Exposure: No; Hx Alcohol Use: No Hx Substance Use: No Preferred Language: Tamazight Communication Ability: Effective Electrician Research Required: No Beliefs That Will Affect Care: None Current Living Situation: Spouse Current Living Situation Comment: Lives at home with spouse can drive and cook his does the shopping Feels Safe at Home: Yes Assistive Devices: None Review of Systems All systems reviewed & are unremarkable except as noted in HPI & below. Physical Exam Right hip: No soft tissue compromise nor ecchymosis. Uncomfortable with logroll. Positive knee extension, dorsiflexion, plantarflexion, EHL. DNVI Right shoulder: Ecchymosis extending posteriorly the proximal arm about the deltoid. Focally tender over the distal clavicle. Some tenderness of the chest wall. Nontender over the proximal humerus and scapular spine. Can forward elevate and externally rotate to near full range. Constitutional WD/WN, vitals as above Respiratory normal respiratory effort; no respiratory distress Cardiovascular Extremities: normal capillary refill; no edema Chest (Breasts) Chest: normal inspection of chest Skin no rashes, warm and dry Psychiatric A+Ox3, euthymic affect Results & Data Results & Data Laboratory Results Laboratory Tests 09/10/21 12/23/21 12/23/21 06:36 03:16 03:16 WBC 9.56 Hct 30.4 L Creatinine 2.59 H Glucose 149 H Hemoglobin A1c 6.2 H Lactate 12/23/21 11:52 WBC Hct Creatinine Glucose Hemoglobin A1c Lactate 1.8 Diagnostic Findings Right hip x-rays: AP and lateral views show displaced subcapital femoral neck fracture. Mildly impacted. CT scan of the chest abdomen pelvis show an impacted distal clavicle fracture. Appears to be minimally displaced. There is also better visualization of the displaced right femoral neck fracture . PG Care Time/CCT Total # of Minutes Spent Total Time Spent with Patient: Total time spent is greater than 50% in coordination of care (as documented) at patient's floor/unit and/or counseling patient: Coding Level of Care Code 75654 Inpt Consult Level 4 (25 - SIGNIFICANT, SEPARATELY IDENTIFIABLE ) Diagnoses Displaced fracture of right femoral neck S72.001A Closed right clavicular fracture S42.001A
--- NOTE | 2021-12-23 16:35 | Hospitalist Progress Note ---
Date of Service December 23, 2021 Assessment & Plan (1) Syncope: Plan: Syncope H/O Trifascicular block S/P Pacemaker H/O NSVT, P. Atrial flutter, Pacemaker dysfunction Likely secondary to orthostatic hypotension --CT head:No acute intracranial abnormality or calvarial fracture Blood pressure improved by holding Lasix, decreasing metoprolol dose. Pacemaker interrogated Given history of NSVT, metoprolol continued at 12.5 mg daily Appreciate cardiology input Monitor electrolytes and replace as needed Monitor BP/Telemetry for arrhythmias Acute impacted mildly displaced subcapital right femoral neck fracture Acute intra-articular mildly displaced fracture of the distal right clavicle Acute nondisplaced fractures of the right first and second ribs Mild superior endplate compression at T1 without retropulsion--likely chronic Secondary to Fall Imaging studies reviewed Fall precautions Pain control Nonoperative sling of RUE Planned for hemiarthroplasty of right hip. NPO midnight for procedure tomorrow Lactic acidosis No obvious source of infection Repeat lactate levels normalized with IV fluids Hypokalemia Replace electrolytes as needed Chronic systolic heart failure EF 50%, TTE 2021 Currently seemed to be Euvolemic Diuretics held for now Monitor volume status Presumptive CAD Continue aspirin, Lipitor, metoprolol DM II HbA1C:6.18 Oct 2021 Hold PO meds Continue ISS per protocol Monitor BGs CKD IV Cr at baseline Monitor renal function Avoid nephrotoxic agents as able Anemia of chronic disease No obvious bleeding issues Monitor CBC DVT Px: SCDs Re: Procedure tomorrow Code Status Full code Admission and Anticipated Discharge Date Admission Date: December 23, 2021 Subjective Patient is seen and examined at bedside States having right shoulder, right hip pain especially with movement Denies any chest pain, dizziness, nausea, abdominal pain Discussed with patient's family at bedside Also discussed with orthopedic today Offers no other complaints Review of Systems Review of Systems: All systems reviewed & are unremarkable except as noted in Subjective Physical Exam Physical Exam: Physical Exam: Vitals signs as noted above General Appearance:Moderately built and nourished, no apparent distress Head: normocephalic, Atraumatic Eyes: normal inspection, EOMI Neck: supple, Trachea midline Respiratory/Chest: Normal breath sounds, CTA, No accessory muscle use Cardiovascular: S1, S2, No murmur, + Pacer Abdomen/GI:Soft, Non tender, Bowel sounds present Extremities/Musculoskeletal:normal inspection, no edema, RLE Externally rotated, right hip mildly swollen and tender R clavicle mildly tender Neurologic/Psych:AAOX3, grossly no focal neurological deficits Skin: normal color, warm Results & Data Results & Data ([facility]) Vital Signs (Past 12 Hours) Vital Signs Temp Pulse Pulse Resp BP BP BP 12/23/21 16:05 37.1 C 93 H 19 117/71 12/23/21 15:10 88 12/23/21 11:05 36.8 C 84 20 125/75 12/23/21 10:54 88 12/23/21 09:05 36.5 C 70 19 118/79 12/23/21 09:04 12/23/21 07:15 78 16 117/74 12/23/21 06:13 86 12/23/21 05:30 83 22 12/23/21 05:30 113/77 12/23/21 05:20 76 12/23/21 05:20 106/67 12/23/21 05:10 85 21 12/23/21 05:10 117/77 12/23/21 05:00 86 18 12/23/21 05:00 121/86 12/23/21 04:50 77 12/23/21 04:50 119/76 12/23/21 04:40 78 20 12/23/21 04:40 109/69 Pulse Ox O2 Del Method O2 Flow Rate 12/23/21 16:05 98 Nasal Cannula 2 12/23/21 15:10 12/23/21 11:05 98 Room Air 2 12/23/21 10:54 12/23/21 09:05 96 Nasal Cannula 2 12/23/21 09:04 Nasal Cannula 2 12/23/21 07:15 100 Nasal Cannula 3 12/23/21 06:13 100 Nasal Cannula 3 12/23/21 05:30 100 12/23/21 05:30 12/23/21 05:20 99 12/23/21 05:20 12/23/21 05:10 100 12/23/21 05:10 12/23/21 05:00 99 12/23/21 05:00 12/23/21 04:50 99 12/23/21 04:50 12/23/21 04:40 12/23/21 04:40 Laboratory Results Short CBC 12/23/21 Range/Units 03:16 WBC 9.56 (4.8-10.8) K/ul Hgb 9.5 L (14.0-18.0) g/dl Hct 30.4 L (40.1-51.0) % Plt Count 195 (130-400) K/uL BMP 12/23/21 03:16 Sodium 137 Potassium 3.3 L Chloride 101 Carbon Dioxide 24 BUN 41 H Creatinine 2.59 H Glucose 149 H Calcium 9.0 Liver Function 12/23/21 Range/Units 03:16 Total Bilirubin 0.9 (0.2-1.0) mg/dl AST 40 H (13-39) U/L ALT 28 (7-52) U/L Alkaline Phosphatase 223 H (34-104) U/L Albumin 3.1 L (3.4-5.0) gm/dl Urine 12/23/21 Range/Units 06:10 Urine Color Yellow Urine Appearance Clear (Clear) Urine pH 7.0 (4.5-7.5) Ur Specific [place] 1.008 (1.000-1.030) Urine Protein Negative (Negative) Urine Glucose (UA) Negative (Negative)
--- NOTE | 2021-12-23 17:28 | XRay Report ---
XR shoulder RT min 2V routine CLINICAL HISTORY: distal clavicle fracture. Follow-up. COMPARISON STUDY: Chest CT 12/23/2021. FINDINGS: Mildly displaced distal right clavicle fracture is again noted. This demonstrates intra-art icular extension within the acromioclavicular joint. The AC joint is well aligned. No acute fracture or dislocation of the right glenohumeral joint. The right first and second rib fractures are better a ppreciated on the same day chest CT. The right-sided pacemaker noted. Soft tissue swelling within the right shoulder. IMPRESSION: 1. Confirmation of the distal right clavicle fracture. 2. No fracture or dislocation at the glenohumeral joint. 3. The right first and second rib fractures are better appreciated on the same day chest CT. ACT 112: Negative or not required by law. Electronically signed by: David Islas M.D. 12/23/2021 5:25 PM
[2021-12-23] MEDS: ATORVASTATIN 40 MG TAB PO SCH (20:24)
[2021-12-24] MEDS: ACETAMINOPHEN 325 MG TAB PO PRN (00:24)
[2021-12-24] MEDS: LACTATED RINGER'S 1,000 ML IV SCH ×2 (01:15→18:32)
[2021-12-24] MEDS ORDERED: Nursing to Pharmacy Communication SCH (04:45)
[2021-12-24 06:08] LABS: Hematocrit (blood only) 26.3 % (40.1-51.0); Hemoglobin 8.4 g/dl (14.0-18.0); Mean Corpuscular Hemoglobin 25.5 pg (25.0-34.0); Mean Corpuscular Hgb Conc 31.9 g/dL (32.0-36.0); Mean Corpuscular Volume 79.9 fL (80.0-100.0); RDW Coefficient of Variation 18.8 % (11.5-14.5); RDW Standard Deviation 54.4 fL (36.4-46.3); Red Blood Count 3.29 M/uL (4.63-6.08); White Blood Count 10.15 K/ul (4.8-10.8)
[2021-12-24] MEDS: INSULIN ASPART PER UNIT SC SCH ×3 (06:16→17:00)
[2021-12-24 06:31] LABS: BUN Creatinine Ratio 17.2 (10-20); Calcium 8.5 mg/dl (8.5-10.1); Creatinine Clr Calc Pharmacy 24.1 ml/min; Est GFR (African American) 24.7 ml/min; Est GFR (Non-African American) 21.3 ml/min; Potassium 4.2 mmol/L (3.5-5.1)
[2021-12-24 06:34] LABS: Basophils # (auto) 0.07 K/uL (0-0.2); Basophils % (auto) 0.7 %; Eosinophils % (auto) 4.9 %; Immature Granulocytes # (auto) 0.04 K/uL (0.00-0.02); Immature Granulocytes % (auto) 0.4 %; Lymphocytes # (auto) 1.47 K/uL (1.2-3.4); Lymphocytes % (auto) 14.5 %; Monocytes # (auto) 0.54 K/uL (0.24-0.82); Monocytes % (auto) 5.3 %; Neutrophils # (auto) 7.53 K/uL (1.4-6.5); Neutrophils % (auto) 74.2 %; Platelet Count 106 K/uL (130-400)
[2021-12-24] MEDS: MULTIVITAMIN TAB PO SCH (07:19)
[2021-12-24] MEDS: allopurinoL 300 MG TAB PO SCH (07:19)
[2021-12-24] MEDS: ASPIRIN 81 MG ECTAB PO SCH (07:19)
[2021-12-24] MEDS: METOPROLOL SUCC 25MG EXT REL TAB PO SCH ×2 (07:19→20:35)
[2021-12-24] MEDS ORDERED: BUPIVACAINE 0.5 % 5 MG/1 ML PF 10ML VIAL ONE (07:31)
--- NOTE | 2021-12-24 07:45 | Cardiology Progress Note ---
Date of Service December 24, 2021 Assessment & Plan (1) Syncope: (2) Hypotension: (3) HFrEF (heart failure with reduced ejection fraction): (4) Biventricular cardiac pacemaker in situ: (5) CAD (coronary artery disease): (6) Anemia: (7) CKD (chronic kidney disease): (8) AV fistula: Plan Medically complex 81-year-old male with a history of chronic systolic CHF with presumed CAD status post biventricular pacemaker. Patient with concerns of lightheadedness and dizziness x1 month with a syncopal episode last evening. Syncopal episode likely in the setting of orthostatic hypotension symptoms and blood pressure improved with holding of diuretic and reduction in beta-chip. No concerning arrhythmias noted on pacemaker interrogation while inpatient. Echo done last month as an outpatient was stable. -Blood pressures improved, agree with continuing to hold Lasix at this time. Monitor for symptoms of fluid retention. Recommend daily weights. 2 g sodium restriction. -Heart rate increasing to the upper 90s. Patient does carry a history of nonsustained VT. Agree with restarting Metoprolol, will plan on increasing dose to 12.5 mg BID this evening. Patient normally maintained on 25 mg twice daily. Metoprolol succinate should not greatly affect blood pressure. -Known CKD stage IV with AV fistula of the left arm. Renal function has been stable. Hypokalemia resolved. Continue to trend BMP. Potassium 4.0. -Will defer to PCP regarding management of anemia. -No contraindications from a cardiac standpoint with proceeding with right hip fracture surgery (cemented hemiarthroplasty) Case discussed with Dr. Montemayor. From a cardiac standpoint he is doing well. Again, I would recommend titration of his metoprolol succinate back to his home dose of 25 mg BID as long as he tolerates it clinically while inpatient. In terms of his lasix- would recommend possibly restarting at a lower dose at discharge, perhaps 20 mg daily with an additional 20 mg as needed for fluid retention or a weight gain of 3 pounds over night or 5 pounds in 1 week. Patient may benefit from a short rehab stay to improve balance/stability post hip repair. Reccomend cardiology follow up in 2-4 weeks post discharge. No further cardiac interventions are necessary at this time. Please reach out with any further questions or concerns. Admission and Anticipated Discharge Date Admission Date: December 23, 2021 Supervising Physician Co-Signing Physician Notes Patient seen and examined with ALEXX Chairez. Agree with findings and assessment as above. Subjective 81 year old male initially presented to the ED due to an unwitnessed fall after getting up in the middle the night to use the bathroom. Patient was experiencing dizziness/lightheadedness x4 weeks. When EMS arrived showed systolics in the 70s. Unfortunately patient did fracture his right hip during the fall. Diuretics and BB held on admission. 12/23: Metoprolol succinate restarted at 12.5 mg daily (normally maintained on 25 mg twice daily). Lasix on hold (normally maintained on 40 mg in the morning and 20 mg in the afternoon). Blood pressure improvement with systolics in the 90s to 110s. As a result of the fall he suffered a right femoral neck fracture as well as a right clavicle fracture. He was seen by orthopedics who felt to the clavicle fracture was nonoperative and he is now in a sling. They recommended hip fracture surgery and he was placed n.p.o. at midnight. 12/24: Chart and telemetry reviewed. Labs: Worsening anemia (hemoglobin 9.4>>8.4), potassium improved to 4.2. Creatinine stable at 2.68. Lactate now normal at 1.8, previously 2.4. Telemetry: paced 90s. Blood pressures improved overnight systolics averaging in the 110s to 120s. Upon entrance into the room patient resting in bed. No acute CV complaints. Main concern regarding right leg pain. No further episodes of lightheadedness/dizziness. No syncope. No CP/SOB/palpations. Review of Systems Review of Systems: All systems reviewed & are unremarkable except as noted in HPI & below Physical Exam Constitutional: WD/WN, vitals as above no acute distress Eyes: PERRL, conjunctivae normal, anicteric sclerae Neck: normal visual inspection and trachea midline Respiratory: normal respiratory effort, lungs clear to auscultation no respiratory distress Cardiovascular: Rate/Rhythm: regular rate and regular rhythm Heart Sounds: normal S1, normal S2 and + murmur (Grade II/ systolic ejection murmur.) Vessels: no JVD Extremities: + AV fistula (MARGA); no edema Chest (Breasts): Chest: + pacemaker (Right upper chest ) Gastrointestinal (Abdomen): normal bowel sounds, soft, nontender, no hepatosplenomegaly Skin: no rashes, warm and dry Psychiatric: A+Ox3, euthymic affect Results & Data ([facility]) Vital Signs (Past 12 Hours) Vital Signs Temp Pulse Pulse Resp BP Pulse Ox O2 Del Method 12/24/21 07:34 36.9 C 99 H 19 126/76 96 Nasal Cannula 12/24/21 07:11 99 H 12/24/21 03:24 36.7 C 99 H 18 113/68 97 Nasal Cannula 12/23/21 20:00 Nasal Cannula 12/23/21 23:00 37.2 C 95 H 18 107/68 97 Nasal Cannula O2 Flow Rate 12/24/21 07:34 2 12/24/21 07:11 12/24/21 03:24 2 12/23/21 20:00 2 12/23/21 23:00 2 Laboratory Results CBC 12/24/21 Range/Units 05:22 WBC 10.15 (4.8-10.8) K/ul RBC 3.29 L (4.63-6.08) M/uL Hgb 8.4 L (14.0-18.0) g/dl Hct 26.3 L (40.1-51.0) % Plt Count 106 L (130-400) K/uL Neut # (Auto) 7.53 H (1.4-6.5) K/uL Lymph # (Auto) 1.47 (1.2-3.4) K/uL Bartholomew # (Auto) 0.54 (0.24-0.82) K/uL Eos # (Auto) 0.50 (0-0.50) K/uL Baso # (Auto) 0.07 (0-0.2) K/uL Comprehensive Metabolic Panel 12/24/21 Range/Units 05:22 Sodium 136 (136-145) mmol/L Potassium 4.2 D (3.5-5.1) mmol/L Chloride 104 (98-107) mmol/L Carbon Dioxide 26 (21-32) mmol/L BUN 46 H (6-23) mg/dl Creatinine 2.68 H (0.6-1.4) mg/dl Glucose 140 H (70-99(Fasting)) mg/dl Calcium 8.5 (8.5-10.1) mg/dl Intake and Output 12/23/21 12/24/21 12/24/21 22:59 06:59 14:59 Intake Total 150 / 1150 1000 / 1150 Output Total 200 / 700 250 / 700 Balance -50 / 450 750 / 450 Intake: IV 1000 / 1000 Lactated Ringer's 1,000 ml @ 60 1000 / 1000 mls/hr IV .[id number] ONE Rx#: [id number] Oral 150 / 150 Output: Urine Amount (Catheter) 200 / 700 250 / 700 Taylor/Indwelling 200 / 700 250 / 700 Other: Other Intake Source NPO Weight 94.3 kg Weight Measurement Method Built in [facility]
--- NOTE | 2021-12-24 08:16 | Anesthesiology Consultation ---
Date of Service December 24, 2021 Assessment & Plan (1) Encounter for pre-operative examination: Chart Review Chart Review: industrial robotics mechanic initiated History Surgery Operation Date: 12/24/21 07:00 Proposed Procedures p Right Hip Cemented Hemiarthroplasty - Cruz Dee MD Height/Weight Height: 5 ft 8 in Weight: 94.3 kg Allergies Allergy/AdvReac Type Severity Reaction Status Date / Time lisinopril AdvReac Mild ALTERED Verified 12/23/21 03:10 KIDNEY FUNCTIONS Medications Home Medications Medication Instructions Recorded Confirmed Last Taken allopurinol 300 mg tablet 300 mg PO DAILY 09/09/21 12/23/21 12/22/21 atorvastatin 40 mg tablet 40 mg PO HS 09/09/21 12/23/21 12/22/21 furosemide 40 mg tablet See Rx Instructions .Route .COMPLEX 09/09/21 12/23/21 12/22/21 metoprolol succinate 25 mg 25 mg PO BID 09/09/21 12/23/21 12/22/21 tablet,extended release 24 hr pioglitazone 15 mg tablet 15 mg PO DAILY 09/09/21 12/23/21 12/22/21 aspirin 81 mg PO DAILY 12/23/21 12/23/21 Unknown multivitamin 1 tab PO DAILY 12/23/21 12/23/21 Unknown Active Medications Generic Name Dose Route Start Last Admin Trade Name Yusuf PRN Reason Stop Dose Admin Acetaminophen 650 mg 12/23/21 09:03 12/24/21 00:24 Acetaminophen 325 Mg Tab PO 01/22/22 09:02 650 mg Q4H PRN Administration Pain or Fever Allopurinol 300 mg 12/23/21 09:03 12/24/21 07:19 Allopurinol 300 Mg Tab PO 01/22/22 09:02 300 mg DAILY FAY Administration Aspirin 81 mg 12/23/21 09:00 12/24/21 07:19 Aspirin 81 Mg Ectab PO 01/22/22 08:59 81 mg QAM FAY Administration Atorvastatin Calcium 40 mg 12/23/21 21:00 12/23/21 20:24 Atorvastatin 40 Mg Tab PO 01/22/22 20:59 40 mg HS FAY Administration Lactated Ringer's 1,000 mls @ 60 mls/hr 12/24/21 00:01 12/24/21 01:15 Lr IV 01/23/22 00:00 60 mls/hr .[id number] FAY Administration Insulin Aspart 0 units 12/24/21 06:00 12/24/21 06:16 Insulin Aspart Per Unit SC 01/23/22 05:59 1 units Q6 FAY Administration Metoprolol Succinate 12.5 mg 12/23/21 09:03 12/24/21 07:19 Metoprolol Succ 25mg Ext Rel Tab PO 01/22/22 09:02 12.5 mg DAILY FAY Administration Multivitamins 1 tab 12/23/21 09:00 12/24/21 07:19 Multivitamin Tab PO 01/22/22 08:59 1 tab QAM FAY Administration Past Medical History Medical History Chronic heart failure Diabetes mellitus, type 2 NIDDM GERD (gastroesophageal reflux disease) Gout Hearing deficit Hematochezia Hyperlipidemia Pacemaker [employer]. 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 Yan. last checked remotely ~05/2021 Shortness of breath on exertion reason for inhaler Past Family History Family History Father , 59 Family history of diabetes mellitus Coronary heart disease Mother Cancer Other No family history of adverse response to anesthesia Past Surgical History Surgical History History of appendectomy History of colonoscopy History of pacemaker initially placed in 2010, and changed 06/2020 at [facility] Dr Ko History of tooth extraction most teeth removed S/P arteriovenous (AV) fistula creation 2008 left arm Social History Smoking Status: Never smoker tobacco type: cigarettes Smoking cigarettes per day: 9 Hx Alcohol Use: No Alcohol type: beer alcohol intake frequency: other Hx Substance Use: No substance use type: does not use Physical Exam Vital Signs Last Vital Signs Temp 98.4 F 12/24/21 07:34 Pulse 99 H 12/24/21 07:34 Resp 19 12/24/21 07:34 BP 126/76 12/24/21 07:34 Pulse Ox 96 12/24/21 07:34 O2 Del Method 12/24/21 07:34 O2 Flow Rate 2 12/24/21 07:34 Testing Laboratory Results 12/24/21 05:22 10/07/22 05:22 Urine Color Yellow 12/23/21 06:10 Urine Appearance Clear (Clear) 12/23/21 06:10 Urine pH 7.0 (4.5-7.5) 12/23/21 06:10 Ur Specific [place] 1.008 (1.000-1.030) 12/23/21 06:10 Urine Protein Negative (Negative) 12/23/21 06:10 Urine Glucose (UA) Negative (Negative) 12/23/21 06:10 Urine Ketones Negative (Negative) 12/23/21 06:10 Urine Nitrite Negative (Negative) 12/23/21 06:10 Ur Leukocyte Esterase Negative (Negative) 12/23/21 06:10 Blood Type B Positive 12/23/21 07:07 Antibody Screen NEGATIVE 12/23/21 07:07 12/24/21 12/24/21 07:31 05:59 POC Glucose 151 H 146 H Electrocardiogram Date: 12/23/21 Poor data quality, interpretation may be adversely affected AV dual-paced rhythm, rate 78 bpm Abnormal ECG When compared with ECG of 09-SEP-2021 16:13, No significant change was found Confirmed by Kenneth Plasencia ([id number]) on 12/23/2021 8:19:45 AM Echocardiogram Date: 06/18/20 LV cavity size is normal LV wall thickness is moderately increased The septal motion is abnormal consistent with RV pacemaker The remaining LV wall segments are borderline hypokinetic EF 40-44% LA enlargement suggests diastolic LV dysfunction LA is severely enlarged Moderate AV sclerosis is present is absent
--- NOTE | 2021-12-24 10:51 | Hospitalist Progress Note ---
Date of Service December 24, 2021 Assessment & Plan (1) Syncope: Plan: Syncope H/O Trifascicular block S/P Pacemaker H/O NSVT, P. Atrial flutter, Pacemaker dysfunction Likely secondary to orthostatic hypotension --CT head:No acute intracranial abnormality or calvarial fracture Blood pressure improved by holding Lasix, decreasing metoprolol dose. Pacemaker interrogated Given history of NSVT, metoprolol continued at 12.5 mg BID Appreciate cardiology input Monitor electrolytes and replace as needed Monitor BP/Telemetry for arrhythmias Plan to resume metoprolol back to 25 mg twice daily if BP tolerates Acute impacted mildly displaced subcapital right femoral neck fracture Acute intra-articular mildly displaced fracture of the distal right clavicle Acute nondisplaced fractures of the right first and second ribs Mild superior endplate compression at T1 without retropulsion--likely chronic Secondary to Fall Imaging studies reviewed Fall precautions Pain control Nonoperative sling of RUE Planned for hemiarthroplasty of right hip today Lactic acidosis No obvious source of infection Repeat lactate levels normalized with IV fluids Hypokalemia Replace electrolytes as needed Chronic systolic heart failure EF 50%, TTE 2021 Currently seemed to be Euvolemic Diuretics held for now Monitor volume status Resume lasix as able Presumptive CAD Continue aspirin, Lipitor, metoprolol DM II HbA1C:6.18 Oct 2021 Hold PO meds Continue ISS per protocol Monitor BGs CKD IV Cr at baseline Monitor renal function Avoid nephrotoxic agents as able Anemia of chronic disease No obvious bleeding issues Monitor CBC DVT Px: SCDs Re: Procedure today Code Status Full code Admission and Anticipated Discharge Date Admission Date: December 23, 2021 Subjective Patient is seen and examined at bedside Complains of right hip pain this morning Offers no other complaints Plan for right hip surgery today Denies any chest pain, dyspnea, dizziness, nausea, abdominal pain Review of Systems Review of Systems: All systems reviewed & are unremarkable except as noted in Subjective Physical Exam Physical Exam: Physical Exam: Vitals signs as noted above General Appearance:Moderately built and nourished, no apparent distress Head: normocephalic, Atraumatic Eyes: normal inspection, EOMI Neck: supple, Trachea midline Respiratory/Chest: Normal breath sounds, CTA, No accessory muscle use Cardiovascular: S1, S2, No murmur, + Pacer Abdomen/GI:Soft, Non tender, Bowel sounds present Extremities/Musculoskeletal:normal inspection, no edema, RLE Externally rotated, right hip mildly swollen and tender R clavicle mildly tender Neurologic/Psych:AAOX3, grossly no focal neurological deficits Skin: normal color, warm Results & Data Results & Data ([place]) Vital Signs (Past 12 Hours) Vital Signs Temp Pulse Pulse Resp BP Pulse Ox O2 Del Method 12/24/21 08:46 Nasal Cannula 12/24/21 07:34 36.9 C 99 H 19 126/76 96 Nasal Cannula 12/24/21 07:11 99 H 12/24/21 03:24 36.7 C 99 H 18 113/68 97 Nasal Cannula 12/23/21 23:00 37.2 C 95 H 18 107/68 97 Nasal Cannula O2 Flow Rate 12/24/21 08:46 2 12/24/21 07:34 2 12/24/21 07:11 12/24/21 03:24 2 12/23/21 23:00 2 Laboratory Results Short CBC 12/24/21 Range/Units 05:22 WBC 10.15 (4.8-10.8) K/ul Hgb 8.4 L (14.0-18.0) g/dl Hct 26.3 L (40.1-51.0) % Plt Count 106 L (130-400) K/uL BMP 12/24/21 05:22 Sodium 136 Potassium 4.2 D Chloride 104 Carbon Dioxide 26 BUN 46 H Creatinine 2.68 H Glucose 140 H Calcium 8.5
--- NOTE | 2021-12-24 11:24 | Orthopedic Progress Note ---
Date of Service December 24, 2021 Assessment & Plan (1) Displaced fracture of right femoral neck: -Reviewed consent w/ pt. He is ready to proceed with surgery today. Cleared for surgery per Medicine and Cardiology teams, appreciate assistance. Will proceed with R hip cemented bipolar hemiarthroplasty. Further recommendations to follow post operatively. Discussed w/ Dr. Dee. Subjective Feels fine today. No major concerns. Review of Systems All systems reviewed & are unremarkable except as noted in HPI & below. Physical Exam General: Pleasant 81 y/o/m resting in bed in NAD. Right hip: No soft tissue compromise nor ecchymosis. Uncomfortable with logroll. Positive knee extension, dorsiflexion, plantarflexion, EHL. DNVI Results & Data Results & Data Laboratory Results Reviewed . Diagnostic Findings Reviewed . PG Care Time/CCT Total # of Minutes Spent Total Time Spent with Patient: Total time spent is greater than 50% in coordination of care (as documented) at patient's floor/unit and/or counseling patient: Coding Level of Care Code 85681 Subseq Hosp Care Lvl 3 Diagnoses Displaced fracture of right femoral neck S72.001A
[2021-12-24] MEDS ORDERED: fentaNYL citrate 100 MCG/2 ML VIAL ONE (14:30)
[2021-12-24] MEDS ORDERED: PROPOFOL IV EMULSION 10 MG/ML 100 ML VIAL IV ONE ×4 (14:30→16:00)
[2021-12-24] MEDS ORDERED: ONDANSETRON INJ 2 MG/ML 2 ML VIAL ONE (14:30)
[2021-12-24] MEDS ORDERED: LIDOCAINE 2% MPF LOCAL 5 ML VIAL INFIL ONE (14:30)
[2021-12-24] MEDS ORDERED: SODIUM CHLORIDE 0.9% 250 ML IV PRN (14:49)
[2021-12-24] MEDS ORDERED: ATROPINE SULFATE 0.1 MG/ML 10ML SYR IV PRN (15:01)
[2021-12-24] MEDS ORDERED: PROMETHAZINE HCL 6.25 MG in SODIUM CHLORIDE 0.9% 50 ML IV PRN (15:01)
[2021-12-24] MEDS ORDERED: fentaNYL citrate 100 MCG/2 ML VIAL IV PRN (15:01)
[2021-12-24] MEDS ORDERED: ONDANSETRON INJ 2 MG/ML 2 ML VIAL IV PRN (15:01)
[2021-12-24] MEDS ORDERED: ePHEDrine sulfate 50 MG/ML AMP IV PRN (15:01)
[2021-12-24] MEDS ORDERED: BUPIVACAINE 0.5 % 5 MG/1 ML MPF 30ML VIAL ONE (15:10)
[2021-12-24] MEDS ORDERED: EPINEPHrine INJ 1 MG/ML AMP ONE (15:10)
[2021-12-24] MEDS ORDERED: ceFAZolin 2000MG 2,000 MG/15 ML SYR IV ONE (15:12)
[2021-12-24] MEDS ORDERED: ceFAZolin 2,000 MG/15 ML IV PUSH IV ONE (15:13)
--- NOTE | 2021-12-24 15:16 | History & Physical Bridge Note ---
Date of Service December 24, 2021 History & Physical Bridge Note I have examined the patient, reviewed the History & Physical and in the interval since the performance of the History & Physical I have noted the following changes of clinical significance: no changes noted
[2021-12-24] MEDS ORDERED: ePHEDrine sulfate 50 MG/ML AMP ONE (15:53)
[2021-12-24] MEDS ORDERED: VASOPRESSIN 20 UNIT/ML VIAL ONE (15:54)
[2021-12-24] MEDS ORDERED: PHENYLEPHRINE HCL 10 MG/ML VIAL ONE (15:54)
--- NOTE | 2021-12-24 17:15 | Operative Report ---
PG Post Operative Report Pre & Post Diagnosis Operation Date: 12/24/21 07:00 Pre-Op Diagnosis: Displaced Right Femoral Neck Fracture Post-Op Diagnosis: Displaced Right Femoral Neck Fracture I identified the patient and participated in the time-out.: Yes Procedure Operation Date: 12/24/21 07:00 Actual Procedures p Right Hip Cemented Hemiarthroplasty(Right) - Cruz Dee MD Surgeon Cruz Dee MD Test Pilot Layo Lynn PA-C Estimated Blood Loss 100 Findings Consistent with Post-Op Diagnosis Operative findings revealed a displaced comminuted femoral neck fracture. There was extension down the neck. Significant hemarthrosis. Specimens Right femoral head sent for pathology. Anesthesia Type Spinal MAC Complications none Disposition Accompanied Patient To Recovery: No Indications Patient is an 81-year-old gentleman with multiple medical comorbidities who sustained a fall several days ago. The cute onset of pain and discomfort in his hip and could not ambulate afterwards. He was brought to emergency room and x- rays were displaced femoral neck fracture as well as left clavicle fracture. Patient was admitted to hospital, medically optimized and indicated for surgical fixation/hemiarthroplasty. Description of Procedure Operative implants consist of: 1 Ranulfo size 14 LD-fracture cemented femoral fracture stem. 2. +7/28 mm articular ball. 3. 55 mm bipolar shell and liner. 4. Size 13 distal left centralizer. 5. Large cement restrictor. The patient was taken the operating, identified, placed on the operating table supine position protectors were properly padded. IV antibiotics tried by anesthesia team. Spinal anesthetic was implemented. The patient was then placed in the left lateral cubitus position. Axillary roll was placed. A Stulberg hip positioner was used for positioning. Right hip and leg were then scrubbed with Hibiclens, prepped with ChloraPrep and draped in usual sterile fashion. A posterior lateral approach of the right hip was then performed through a curvilinear incision centered over the greater trochanter. Sharp dissection was carried through subcutaneous this down to the IT band gluteal fascia the IT band gluteal fascia incised longitudinally in line with skin incision. The underlying greater bursa was excised. Is quite a bit hemorrhage posterior from the bleeding. The piriformis and external rotators were tagged and taken off the posterior aspect hip joint capsule. Great care was taken throughout the procedure to protect the sciatic nerve at all times. A posterior capsulotomy was then performed in a T-type fashion to allow for later repair. Hip was internally rotated. Femoral neck osteotomy cut was made at the base of the fracture site was about 10 mm of the above the trochanter. The femoral head and neck were removed and sent for pathology. The acetabular was sized to a size 55. Attention drawn the femur. The proximal femur as well and with a cookie cutter followed by canal finder and lateralizing reamer. I then began broaching beginning with a size 10 progressing up to 15. Good fit of 15. We then trialed different neck lengths and and I really felt soft tissue tension olivier instability olivier that the +7 R ball seem to fit things most appropriately. We placed at these implants. All trial implants were removed. An a large cement restrictor was placed. A double batch Palacos G cement was mixed. The cement was then injected in the canal. A size 14 LD fracture femoral stem with a centralizer was placed and held in position until cement hardened. A +7 articular ball was placed followed by a 55 mm bipolar shell and liner. Hip was located once again found to be stable. Attention drawn toward closing. Wound was irrigated scope soft and pulsatile lavage solution. We did inject locally with 60 cc of half percent Marcaine with epinephrine. The posterior capsule was then repaired with #2 Tycron suture in a [id number] fashion. The piriformis and external rotators were then reattached to the posterior aspect hip abductors with #2 Tycron suture. The IT band gluteal fascia then closed in 1 PDS suture running fashion for subcutaneous tissue then closed 2 layers of deep layer #1 Vicryl suture in the subcutaneous tissue with 2 Dexon suture in a buried interrupted fashion. Skin was closed skin erwin. Leg was then cleaned and dried and sterile dressed with Xeroform, 4 fours, sterile ABD pad and foam tape was applied. Patient transferred to the recovery room in stable condition. The patient tolerated the procedure well and there are no complications. Layo Edgar, my physician campaign assistant, was present for the entire procedure. His assistance was required for proper patient positioning, prepping and draping, surgical exposure, retraction, perform the technical details the operation, placing the implants, closure of the wound, placement of sterile bandage. I attest to the content of the Intraoperative Record and any orders documented therein. Any exceptions are noted below.
--- NOTE | 2021-12-24 17:52 | Anesthesiology Progress Note ---
Date of Service December 24, 2021 Anesthesia Post Procedure Vital Signs Vital Signs: Temp Pulse Pulse Resp BP Pulse Ox O2 Del Method 12/24/21 17:35 97 H 20 154/74 H 95 Oxymask 12/24/21 17:25 91 H 24 128/84 98 Oxymask 12/24/21 17:45 98 H 18 139/86 97 Nasal Cannula 12/24/21 17:14 97.3 F L 100 H 23 117/68 94 Oxymask 12/24/21 14:02 99.0 F 102 H 20 135/74 93 Nasal Cannula 12/24/21 11:07 98.4 F 97 H 19 124/79 98 Nasal Cannula 12/24/21 08:46 Nasal Cannula 12/24/21 07:34 98.4 F 99 H 19 126/76 96 Nasal Cannula 12/24/21 07:11 99 H 12/24/21 03:24 98.1 F 99 H 18 113/68 97 Nasal Cannula 12/23/21 20:00 Nasal Cannula 12/23/21 23:00 99.0 F 95 H 18 107/68 97 Nasal Cannula 12/23/21 19:25 99.7 F H 87 18 120/65 98 Room Air O2 Flow Rate 12/24/21 17:35 4 12/24/21 17:25 6 12/24/21 17:45 2 12/24/21 17:14 6 12/24/21 14:02 2 12/24/21 11:07 2 12/24/21 08:46 2 12/24/21 07:34 2 12/24/21 07:11 12/24/21 03:24 2 12/23/21 20:00 2 12/23/21 23:00 2 12/23/21 19:25 Pain Intensity Right Hip: Pain Intensity: 3 Transfer of Care Handoff Completed per policy Notes Mental Status: alert / awake / arousable and participated in evaluation Patient Amnestic to Procedure: Yes Nausea / Vomiting: adequately controlled Pain: adequately controlled Airway Patency, RR, SpO2: stable & adequate BP & HR: stable & adequate Hydration State: stable & adequate Neuraxial Anesthesia: was administered and sensory block is resolving Anesthetic Complications: no major complications apparent and Pt Satisfied with anesthetic care
[2021-12-24] MEDS: SODIUM CHLORIDE 0.9% 1000ML 1,000 ML IV SCH (18:39)
[2021-12-24] MEDS: ATORVASTATIN 40 MG TAB PO SCH (20:35)
--- NOTE | 2021-12-24 20:36 | XRay Report ---
XR hip RT min 2V CLINICAL HISTORY: Post-Operative implant position COMPARISON: Right hip radiographs November 23, 2021. FINDINGS: Alignment of the right hip arthroplasty is anatomic. There is no periprosthetic fracture o r unexpected radiopaque foreign body. There are skin erwin. IMPRESSION: Expected findings following right hip arthroplasty. ACT 112: Negative or not required by law. Electronically signed by: Ankush Street M.D. 12/24/2021 8:34 PM
[2021-12-25] MEDS: INSULIN ASPART PER UNIT SC SCH ×5 (00:47→20:25)
[2021-12-25 06:03] LABS: Basophils # (auto) 0.07 K/uL (0-0.2); Basophils % (auto) 0.6 %; Eosinophils # (auto) 0.38 K/uL (0-0.50); Eosinophils % (auto) 3.4 %; Hemoglobin 8.1 g/dl (14.0-18.0); Immature Granulocytes # (auto) 0.04 K/uL (0.00-0.02); Immature Granulocytes % (auto) 0.4 %; Lymphocytes # (auto) 1.11 K/uL (1.2-3.4); Mean Corpuscular Hemoglobin 25.5 pg (25.0-34.0); Mean Corpuscular Hgb Conc 31.2 g/dL (32.0-36.0); Mean Corpuscular Volume 81.8 fL (80.0-100.0); Mean Platelet Volume 11.9 fL (9.4-12.4); Monocytes # (auto) 0.76 K/uL (0.24-0.82); Monocytes % (auto) 6.8 %; Neutrophils # (auto) 8.75 K/uL (1.4-6.5); Neutrophils % (auto) 78.8 %; Platelet Count 134 K/uL (130-400); RDW Coefficient of Variation 18.6 % (11.5-14.5); Red Blood Count 3.18 M/uL (4.63-6.08); White Blood Count 11.11 K/ul (4.8-10.8)
[2021-12-25 07:15] LABS: BUN Creatinine Ratio 16.7 (10-20); Calcium 8.2 mg/dl (8.5-10.1); Creatinine Clr Calc Pharmacy 24.8 ml/min; Est GFR (African American) 24.6 ml/min; Est GFR (Non-African American) 21.2 ml/min; Potassium 4.7 mmol/L (3.5-5.1)
[2021-12-25] MEDS: SODIUM CHLORIDE 0.9% 1000ML 1,000 ML IV SCH (07:20)
[2021-12-25] MEDS ORDERED: NON-FORMULARY MEDICATION (Multivitamin 1 TAB) PO SCH (09:00)
[2021-12-25] MEDS ORDERED: ASPIRIN 81 MG ECTAB PO SCH (09:00)
[2021-12-25] MEDS: allopurinoL 300 MG TAB PO SCH (09:07)
[2021-12-25] MEDS: PIOGLITAZONE HCL 15 MG TAB PO SCH (09:08)
[2021-12-25] MEDS: METOPROLOL SUCC 25MG EXT REL TAB PO SCH ×2 (09:08→20:19)
[2021-12-25] MEDS: MULTIVITAMIN TAB PO SCH (09:08)
--- NOTE | 2021-12-25 10:09 | Progress Notes ---
DATE OF NOTE: 12/25/2021 SUBJECTIVE: An 81-year-old gentleman postoperative day 1 from a right cemented bipolar hip arthropla sty for fracture. He is doing pretty well this morning. He has got really no pain while just lying in bed. He does report significant pain when he moves. No new complaints. His shoulder is feeling fairly well. OBJECTIVE: VITAL SIGNS: Temperature 37.1. Vital signs are stable. GENERAL: Shows a pleasant, elderly male. He is sitting up in bed. He is awake, alert, and oriented and looks back to baseline. EXTREMITIES: Examination of the right hip reveals the leg lengths to be equal. Dressing is clean, d ry and intact. Thigh is soft and supple. He is neurologically intact. LABORATORY DATA: Hemoglobin is 8.1. Hematocrit 26.0. White cell count 11.11. Renal function stabl e with a stable creatinine. ASSESSMENT: An 81-year-old gentleman with multiple medical comorbidities. Postop day 1 from a right cemented bipolar hip arthroplasty for fracture. He has also got a nondisplaced clavicle fracture, w hich can be treated conservatively. Really having a fairly little pain from that. PLAN: 1. DVT prophylaxis includes thigh-high TEDs, SCDs and we are going to use aspirin twice a day for 6 weeks. 2. PT/OT. He can weight bear as tolerated on the right lower extremity. We will use a sling for hi s clavicle fracture as needed. He certainly does not need it and it is mostly just for comfort. 3. Pain control, doing okay with current pain regimen. We are going to limit narcotics if possible to avoid confusion issues. 4. Medical management as per the medicine service. 5. Disposition: Plan to discharge likely to a rehab facility. We will see how therapy goes. I nee d to see him back in 2-3 weeks out from surgery date. Any orthopedic questions can be directed to me at [phone]. Job ID: [id number]
[2021-12-25] MEDS: oxyCODONE HCL IR 5 MG TAB (IMMEDIATE RELEASE) PO PRN (12:16)
--- NOTE | 2021-12-25 16:10 | Hospitalist Progress Note ---
Date of Service December 25, 2021 Assessment & Plan (1) Syncope: Plan: Syncope H/O Trifascicular block S/P Pacemaker H/O NSVT, P. Atrial flutter, Pacemaker dysfunction Likely secondary to orthostatic hypotension --CT head:No acute intracranial abnormality or calvarial fracture Blood pressure improved by holding Lasix, decreasing metoprolol dose. Pacemaker interrogated Given history of NSVT, metoprolol continued at 12.5 mg BID Appreciate cardiology input Monitor electrolytes and replace as needed Monitor BP/Telemetry for arrhythmias Plan to resume metoprolol back to 25 mg twice daily if BP tolerates Blood pressure stable but relatively low today Acute impacted mildly displaced subcapital right femoral neck fracture Acute intra-articular mildly displaced fracture of the distal right clavicle Acute nondisplaced fractures of the right first and second ribs Mild superior endplate compression at T1 without retropulsion--likely chronic Secondary to Fall S/P right hip cemented hemiarthroplasty by Dr. Dee on 12/24/2021 Fall precautions Pain control Nonoperative sling of RUE for comfort PT/OT Minimize narcotic use for confusion as able Needs follow-up with orthopedics upon discharge Ortho recommends aspirin 81 mg twice a day for DVT prophylaxis for 6 weeks Lactic acidosis No obvious source of infection Repeat lactate levels normalized with IV fluids Hypokalemia Replace electrolytes as needed Chronic systolic heart failure EF 50%, TTE 2021 Currently seemed to be Euvolemic Diuretics held for now Monitor volume status Resume Lasix --likely tomorrow Presumptive CAD Continue aspirin, Lipitor, metoprolol DM II HbA1C:6.18 Oct 2021 Hold PO meds Continue ISS per protocol Monitor BGs CKD IV Cr at baseline Monitor renal function Avoid nephrotoxic agents as able Anemia of chronic disease No obvious bleeding issues Monitor CBC DVT Px: SCDs/Teds Aspirin 81 mg BID Code Status Full code Admission and Anticipated Discharge Date Admission Date: December 23, 2021 Subjective Patient is seen and examined at bedside Minimally confused this morning as per RN Oriented during my encounter Sitting in chair comfortably Reports having right hip pain at surgical site Had PT evaluation today Also reports minimal pain at right clavicle region Denies any chest pain, dyspnea, dizziness, nausea, abdominal pain Review of Systems Review of Systems: All systems reviewed & are unremarkable except as noted in Subjective Physical Exam Physical Exam: Physical Exam: Vitals signs as noted above General Appearance:Moderately built and nourished, no apparent distress Head: normocephalic, Atraumatic Eyes: normal inspection, EOMI Neck: supple, Trachea midline Respiratory/Chest: Normal breath sounds, CTA, No accessory muscle use Cardiovascular: S1, S2, + murmur, + Pacer Abdomen/GI:Soft, Non tender, Bowel sounds present Extremities/Musculoskeletal:normal inspection, no edema, right hip surgical site in dressing, tender R clavicle mildly tender Neurologic/Psych:AAOX3, grossly no focal neurological deficits Skin: normal color, warm Results & Data Results & Data ([facility]) Vital Signs (Past 12 Hours) Vital Signs Temp Pulse Pulse Resp BP Pulse Ox Pulse Ox 12/25/21 15:58 36.7 C 83 19 120/73 96 12/25/21 15:03 95 H 12/25/21 08:00 91 H 12/25/21 13:00 96 12/25/21 11:47 36.9 C 88 19 93/62 L 93 12/25/21 09:57 12/25/21 09:00 96 12/25/21 08:14 37.1 C 90 20 125/77 97 12/25/21 05:00 94 O2 Del Method O2 Del Method O2 Flow Rate O2 Flow Rate 12/25/21 15:58 Nasal Cannula 2 12/25/21 15:03 12/25/21 08:00 12/25/21 13:00 Nasal Cannula 2 12/25/21 11:47 Nasal Cannula 2 12/25/21 09:57 Nasal Cannula 2 12/25/21 09:00 Nasal Cannula 2 12/25/21 08:14 Nasal Cannula 2 12/25/21 05:00 Nasal Cannula 3 Laboratory Results Short CBC 12/25/21 Range/Units 05:21 WBC 11.11 H (4.8-10.8) K/ul Hgb 8.1 L (14.0-18.0) g/dl Hct 26.0 L (40.1-51.0) % Plt Count 134 (130-400) K/uL BMP 12/25/21 05:21 Sodium 134 L Potassium 4.7 Chloride 102 Carbon Dioxide 25 BUN 45 H Creatinine 2.69 H Glucose 160 H Calcium 8.2 L
[2021-12-25] MEDS: ASPIRIN 81 MG ECTAB PO SCH (20:18)
[2021-12-25] MEDS: ATORVASTATIN 40 MG TAB PO SCH (20:18)
[2021-12-26 07:30] LABS: Hematocrit (blood only) 24.7 % (40.1-51.0); Hemoglobin 7.8 g/dl (14.0-18.0); Mean Corpuscular Hemoglobin 25.7 pg (25.0-34.0); Mean Corpuscular Hgb Conc 31.6 g/dL (32.0-36.0); Mean Corpuscular Volume 81.5 fL (80.0-100.0); Platelet Count 120 K/uL (130-400); RDW Coefficient of Variation 18.9 % (11.5-14.5); RDW Standard Deviation 54.8 fL (36.4-46.3); Red Blood Count 3.03 M/uL (4.63-6.08)
[2021-12-26 08:03] LABS: BUN Creatinine Ratio 18.7 (10-20); Calcium 8.3 mg/dl (8.5-10.1); Creatinine Clr Calc Pharmacy 19.5 ml/min; Est GFR (African American) 19.1 ml/min; Est GFR (Non-African American) 16.5 ml/min
[2021-12-26] MEDS: METOPROLOL SUCC 25MG EXT REL TAB PO SCH ×2 (08:07→21:43)
[2021-12-26] MEDS: ASPIRIN 81 MG ECTAB PO SCH ×2 (08:08→21:30)
[2021-12-26] MEDS: MULTIVITAMIN TAB PO SCH (08:08)
[2021-12-26] MEDS: PIOGLITAZONE HCL 15 MG TAB PO SCH (08:09)
[2021-12-26] MEDS: allopurinoL 300 MG TAB PO SCH (08:09)
[2021-12-26] MEDS: oxyCODONE HCL IR 5 MG TAB (IMMEDIATE RELEASE) PO PRN (08:15)
[2021-12-26] MEDS: INSULIN ASPART PER UNIT SC SCH ×4 (08:15→21:29)
--- NOTE | 2021-12-26 08:37 | Progress Notes ---
DATE OF NOTE: 12/26/2021 SUBJECTIVE: An 81-year-old gentleman postoperative day 2 from a right cemented bipolar hip arthropla sty for fracture. He is doing okay. Really no pain while lying in bed, but pretty rough getting monique und yesterday. Therapy was difficult. His shoulder does not bother him much. OBJECTIVE: VITAL SIGNS: Temperature 38.0. Vital signs are stable. GENERAL: Shows a pleasant, elderly male. He is sitting up in bed and looks quite good. Looks comfo rtable. He is awake, alert and oriented. He is eating breakfast. EXTREMITIES: Examination of the hip reveals the dressing to be clean, dry and intact. Hip is locate d. Leg lengths were equal. He is neurologically intact. Examination of the right shoulder reveals just some slight bruising. No deformity. Minimal pain. He is neurologically intact. LABORATORY DATA: His hemoglobin today is 7.8. Hematocrit 24.7. Sodium is a bit low at 124. Creati nine is a little bit elevated. ASSESSMENT: An 81-year-old gentleman postoperative day 2 from right cemented bipolar hip arthroplast y for fracture and a right clavicle fracture, doing reasonably well. Hemoglobin is a bit low, but re ally not symptomatic. His creatinine has bumped up a little bit. Could be due to volume depletion. PLAN: 1. DVT prophylaxis includes thigh-high TEDs, SCDs, and recommend an aspirin twice a day for 6 weeks. If we need to stop this for kidney function can be done. 2. OT, weightbear as tolerated. Right total hip protocol. 3. Right clavicle fracture. Treatment is symptomatic. Sling for comfort. Does not necessarily nee d to wear the sling. 4. Medical management as per the medicine service. 5. Disposition: He is orthopedically okay for discharge any time medically stable. It looks like w e need to keep an eye on his labs and his hemoglobin for another day or two. I need to see him back in 2-3 weeks out from surgery date. Any orthopedic questions can be directed to me at [phone]. Job ID: [id number]
[2021-12-26] MEDS ORDERED: SODIUM CHLORIDE 0.9% 250 ML IV PRN (09:20)
[2021-12-26] MEDS ORDERED: ACETAMINOPHEN 325 MG TAB PO PRN (09:21)
[2021-12-26] MEDS: FUROSEMIDE INJ 20 MG/2 ML VIAL IV ONE ×2 (10:02→16:04)
[2021-12-26] MEDS ORDERED: DOCUSATE SODIUM 100 MG CAP PO PRN (10:40)
[2021-12-26] MEDS ORDERED: POLYETHYLENE (MIRALAX) 17 GM PACK PO PRN (10:41)
[2021-12-26 11:16] LABS: BUN Creatinine Ratio 18.4 (10-20); Calcium 8.4 mg/dl (8.5-10.1); Creatinine Clr Calc Pharmacy 18.3 ml/min; Est GFR (African American) 17.7 ml/min; Est GFR (Non-African American) 15.3 ml/min; Potassium 5.1 mmol/L (3.5-5.1)
--- NOTE | 2021-12-26 15:38 | Hospitalist Progress Note ---
Date of Service December 26, 2021 Assessment & Plan (1) Syncope: Plan: Syncope H/O Trifascicular block S/P Pacemaker H/O NSVT, P. Atrial flutter, Pacemaker dysfunction Likely secondary to orthostatic hypotension --CT head:No acute intracranial abnormality or calvarial fracture Blood pressure improved by holding Lasix, decreasing metoprolol dose. Pacemaker interrogated Given history of NSVT, metoprolol continued at 12.5 mg BID Appreciate cardiology input Monitor electrolytes and replace as needed Monitor BP/Telemetry for arrhythmias Plan to resume metoprolol back to 25 mg twice daily if BP tolerates BP low but asymptomatic Acute impacted mildly displaced subcapital right femoral neck fracture Acute intra-articular mildly displaced fracture of the distal right clavicle Acute nondisplaced fractures of the right first and second ribs Mild superior endplate compression at T1 without retropulsion--likely chronic Secondary to Fall S/P right hip cemented hemiarthroplasty by Dr. Dee on 12/24/2021 Postoperative blood loss anemia Fall precautions Pain control Nonoperative sling of RUE for comfort Minimize narcotic use for confusion as able Needs follow-up with orthopedics upon discharge Ortho recommends aspirin 81 mg twice a day for DVT prophylaxis for 6 weeks Continue PT/OT We will give 1 unit PRBCs today Monitor CBC Lactic acidosis No obvious source of infection Repeat lactate levels normalized with IV fluids Hypokalemia Replace electrolytes as needed Chronic systolic heart failure EF 50%, TTE 2021 Currently seemed to be Euvolemic Diuretics held for now Monitor volume status Resume Lasix once BP more stable Presumptive CAD Continue aspirin, Lipitor, metoprolol DM II HbA1C:6.18 Oct 2021 Hold PO meds Continue ISS per protocol Monitor BGs CKD IV Cr at baseline Monitor renal function Avoid nephrotoxic agents as able Anemia of chronic disease No obvious bleeding issues Monitor CBC DVT Px: SCDs/Teds Aspirin 81 mg BID Code Status Full code Admission and Anticipated Discharge Date Admission Date: December 23, 2021 Subjective Patient is seen and examined at bedside Right hip pain at surgical site is controlled Denies any chest pain, dyspnea, dizziness, nausea, abdominal pain Plan to give 1 unit PRBCs today Febrile this morning Review of Systems Review of Systems: All systems reviewed & are unremarkable except as noted in Subjective Physical Exam Physical Exam: Physical Exam: Vitals signs as noted above General Appearance:Moderately built and nourished, no apparent distress Head: normocephalic, Atraumatic Eyes: normal inspection, EOMI Neck: supple, Trachea midline Respiratory/Chest: Normal breath sounds, CTA, No accessory muscle use Cardiovascular: S1, S2, + murmur, + Pacer Abdomen/GI:Soft, Non tender, Bowel sounds present Extremities/Musculoskeletal:normal inspection, no edema, right hip surgical site in dressing, tender R clavicle mildly tender Neurologic/Psych:AAOX3, grossly no focal neurological deficits Skin: normal color, warm Results & Data Results & Data ([facility]) Vital Signs (Past 12 Hours) Vital Signs Temp Pulse Pulse Resp BP BP Pulse Ox 12/26/21 15:00 37.1 C 72 18 86/52 L 91 12/26/21 14:00 36.8 C 70 18 93/54 L 94 12/26/21 13:02 36.8 C 70 101/60 92 12/26/21 12:32 37.2 C 70 83/48 L 94 12/26/21 12:17 36.7 C 70 103/58 L 93 12/26/21 11:58 37.7 C H 73 18 93/53 L 12/26/21 10:20 12/26/21 10:18 93 12/26/21 09:00 12/26/21 07:33 38.0 C H 71 18 93/54 L 93 12/26/21 07:09 62 Pulse Ox O2 Del Method O2 Del Method O2 Flow Rate 12/26/21 15:00 1 12/26/21 14:00 1 12/26/21 13:02 1 12/26/21 12:32 1 12/26/21 12:17 1 12/26/21 11:58 12/26/21 10:20 Nasal Cannula 1 12/26/21 10:18 Nasal Cannula 1 12/26/21 09:00 88 L Room Air 12/26/21 07:33 Nasal Cannula 1 12/26/21 07:09 Laboratory Results Short CBC 12/26/21 Range/Units 06:05 WBC 11.40 H (4.8-10.8) K/ul Hgb 7.8 L (14.0-18.0) g/dl Hct 24.7 L (40.1-51.0) % Plt Count 120 L (130-400) K/uL BMP 12/26/21 12/26/21 06:05 09:35 Sodium 124 L D 130 L Potassium 5.0 5.1 Chloride 95 L 98 Carbon Dioxide 25 26 BUN 62 H 65 H Creatinine 3.32 H D 3.53 H Glucose 137 H 177 H Calcium 8.3 L 8.4 L
[2021-12-26] MEDS: ATORVASTATIN 40 MG TAB PO SCH (21:30)
[2021-12-27] MEDS: allopurinoL 300 MG TAB PO SCH (08:05)
[2021-12-27] MEDS: MULTIVITAMIN TAB PO SCH (08:05)
[2021-12-27] MEDS: ASPIRIN 81 MG ECTAB PO SCH ×2 (08:05→20:40)
[2021-12-27] MEDS: PIOGLITAZONE HCL 15 MG TAB PO SCH (08:05)
[2021-12-27] MEDS: METOPROLOL SUCC 25MG EXT REL TAB PO SCH ×2 (08:06→20:39)
[2021-12-27] MEDS: INSULIN ASPART PER UNIT SC SCH ×4 (08:10→20:50)
--- NOTE | 2021-12-27 08:38 | Progress Notes ---
DATE OF NOTE: 12/27/2021 SUBJECTIVE: An 81-year-old gentleman now postop day 3 from a right cemented bipolar hip arthroplasty for fracture and a nondisplaced right clavicle fracture, treated conservatively. He is doing okay. He did not get to mobilize much yesterday due to some hypotension and needing some blood. He is fee ling fine this morning. Pain seems to be getting a little bit better each day. OBJECTIVE: VITAL SIGNS: Temperature 36.7. Vital signs are stable. GENERAL: Physical examination shows a pleasant, elderly male. He is sitting up in bed and looks com fortable. EXTREMITIES: Examination of the right hip reveals the dressing to be in place. Thigh is soft and villarreal pple. Leg lengths were equal. He is neurologically intact. LABORATORY DATA: Labs are pending. ASSESSMENT: An 81-year-old gentleman postoperative day 3 from right cemented bipolar hip arthroplast y for fracture, doing reasonably well. He has not done a whole lot of immobilization yet. Pain seem s to be improving and stable. PLAN: 1. DVT prophylaxis including thigh-high TEDs, SCDs, and aspirin twice a day. 2. PT/OT, weightbear as tolerated. Right total hip protocol. He does need to obey hip precautions. 3. Right clavicle fracture. Treat symptomatically. Sling as needed for the next month, but does no t have to wear it. 4. Disposition: He is orthopedically okay for discharge any time medically stable. I need to see h im back 2 weeks out from surgery date. Any orthopedic questions can be directed to me at . Job ID: [id number]
[2021-12-27 08:48] LABS: Hematocrit (blood only) 26.6 % (40.1-51.0); Hemoglobin 8.7 g/dl (14.0-18.0); Mean Corpuscular Hemoglobin 26.1 pg (25.0-34.0); Mean Corpuscular Hgb Conc 32.7 g/dL (32.0-36.0); Mean Corpuscular Volume 79.9 fL (80.0-100.0); Mean Platelet Volume 11.4 fL (9.4-12.4); Platelet Count 153 K/uL (130-400); RDW Coefficient of Variation 18.8 % (11.5-14.5); RDW Standard Deviation 53.6 fL (36.4-46.3); Red Blood Count 3.33 M/uL (4.63-6.08); White Blood Count 10.57 K/ul (4.8-10.8)
[2021-12-27 09:11] LABS: Creatinine Clr Calc Pharmacy 17.5 ml/min; Est GFR (Non-African American) 13.8 ml/min; Potassium 4.9 mmol/L (3.5-5.1)
[2021-12-27] MEDS: oxyCODONE HCL IR 5 MG TAB (IMMEDIATE RELEASE) PO PRN (10:36)
[2021-12-27] MEDS ORDERED: SODIUM CHLORIDE 0.9% 1000ML 1,000 ML IV SCH (11:30)
[2021-12-27] MEDS ORDERED: FUROSEMIDE 40 MG/4 ML VIAL IV SCH (11:30)
--- NOTE | 2021-12-27 12:33 | Consultation Report ---
NEPHROLOGY CONSULTATION NOTE DATE OF SERVICE: 12/27/2021. REASON FOR CONSULTATION: Acute renal failure on background CKD IV, as well as hyponatremia. HISTORY OF PRESENT ILLNESS: The patient is an 81-year-old male who presented to the hospital 4 days ago following an episode of syncope. The patient has been feeling lightheaded and dizzy on the upright position for many days prior to hospitalization. He passed out while getting up to go to the bathroom at night. The patient was found on the floor unresponsive by . He was found to have fracture of the right femoral neck as well as right clavicular fracture. Since then, patient has underwent surgical repair of the hip fracture. The patient has known CKD IV, with a baseline creatinine in the high 2s. In fact, at the time of his recent hospital discharge in August, he had a creatinine of 2.97. On admission, he had a creatinine of 2.6. So pretty much close to his baseline, but since then, creatinine has gone up to 3.32 yesterday and today is 3.84. His sodium has also fluctuated quite a bit. It was normal at 137 at the time of admission, but is now down to 124 within a span of 4 days. The patient has received IV fluid multiple times at home. Patient takes Lasix 40 mg as directed. The patient has longstanding type 2 diabetes for 25+ years. At this time, he has a Taylor catheter. He is making urine. Urine output yesterday in a 24-hour time period was 550 mL and the day before it was 750 mL. At the time of admission, his blood pressure was low at 84/57, and it has been low multiple times for a prolonged period of time with significant fluctuation in his blood pressure while in the hospital. Appetite seems decent. He does not report any nausea, vomiting, shortness of breath, but he is requiring a low level of oxygen. Denies any NSAIDs as an outpatient. PAST MEDICAL AND SURGICAL HISTORY: Includes chronic systolic heart failure with an ejection fraction of 50%, trifascicular block, status post pacemaker, paroxysmal atrial flutter, presumptive coronary artery disease, hypertension, type 2 diabetes for 25+ years on oral medications specifically Actos, chronic kidney disease stage IV, with a baseline creatinine in the high 2s, chronic anemia related with kidney disease, history of lower GI bleed in August 2021, appendicectomy, vascular procedures. FAMILY HISTORY: Positive for diabetes with ESRD. PERSONAL AND SOCIAL HISTORY: Past history of tobacco and alcohol. Retired engineering lab technician. Lives with his . ALLERGIES: LISINOPRIL. MEDICATIONS: Home medication list was reviewed in detail and is as per the reconciliation list and the H and P. Patient does take allopurinol, atorvastatin, Lasix 40 mg tablet as instructed, metoprolol, Actos 15 daily, aspirin, multivitamin. REVIEW OF SYSTEMS: Prior to hospitalization, patient was having lightheadedness on standing for many days prior to hospitalization. At this point, he has some pain in his right leg where he had the surgery. Appetite is decent. Denies nausea, vomiting, chest pain, shortness of breath, orthopnea, PND, or significant lower extremity edema. PHYSICAL EXAMINATION: GENERAL: Elderly white male who is not in any apparent respiratory distress. VITAL SIGNS: Blood pressure is 137/72, pulse rate 70, temperature 36.7, 92% on 1 liter nasal cannula. HEENT: Mucous membranes are moist. NECK: Supple. CHEST: Bilaterally clear to auscultation. CARDIOVASCULAR: S1 and S2, regular. ABDOMEN: Soft, nontender. EXTREMITIES: Show trace edema. LABORATORY TEST: At baseline, his creatinine is in the high 2s. On admission, his creatinine was at baseline with a reading of 2.6. Since then, it has gone up and this morning it is up to 3.84. Blood work from this morning shows a sodium of 124, potassium 4.9, chloride 94, bicarbonate 22, BUN 73, creatinine 3.84, calcium 8.0. Hemoglobin is 8.7, WBC count 10,000, platelet count 153. CT chest was done at the time of admission and shows a fracture of the right hip and the right clavicle. No tumor, pneumothorax, cardiomegaly. Urine sediment done at the time of admission showed a specific gravity of 1.008, and was very bland. ASSESSMENT AND PLAN: An 81-year-old male with history of CKD IV, with a baseline creatinine already quite elevated at high 2s, admitted following an episode of syncope, which led to fracture of the right hip as well as clavicle. He was found unresponsive by his after he fell at night. Now, he has acute renal failure with a rising creatinine as well as worsening hyponatremia, for which I have been consulted. 1. Acute renal failure: This is likely secondary to ATN/ Acute tubular Ischemia in the setting of intermittent severe hypotension as well as significant hemodynamic changes related with fall, fracture, surgery, anesthesia and multiple readings of hypotension with blood pressure in the 80s. Given 25+ years of diabetes as well as preexisting CKD IV, he is extremely susceptible to episodes of renal failure. I would like to do urine sediment to assess the etiology better. Also check total CK as he also has a chance of having some rhabdomyolysis given fracture and fall. He is making urine and has a Taylor catheter. So obstructive uropathy is pretty unlikely, but if the creatinine does not get better tomorrow, we can consider doing a renal ultrasound also. For the time being, I will give him both IV fluid as well as Lasix. IV fluid is to avoid hypotension and potentially help with his renal function recovery. The Lasix is to lower the urine osmolality to help increase the serum sodium. Also in a patient with preexisting CKD IV and acute renal failure on top, sodium almost always drops. However, this does not mean this is lack of salt, but if anything, it is almost always related with excessive free water. 2. Hyponatremia. This is in the setting of acute renal failure on background CKD IV. We will do urine osmolality, urine sodium, urine creatinine. I will give him normal saline, mainly to help with renal recovery, but this alone would make the serum sodium get worse. I will also give him Lasix 30 mg IV twice daily starting now. We will do the BMP again around 2:30 and again in the evening and based on the trend of the sodium and the renal recovery, we will guide further. I will continue to follow the patient. Job ID: [id number] [facility] CENTERRoberta
[2021-12-27 14:54] LABS: BUN Creatinine Ratio 19.9 (10-20); Calcium 7.9 mg/dl (8.5-10.1); Creatinine Clr Calc Pharmacy 17.6 ml/min; Est GFR (African American) 16.1 ml/min; Est GFR (Non-African American) 13.9 ml/min
--- NOTE | 2021-12-27 16:59 | XRay Report ---
XR chest 1V portable HISTORY: Congestive heart failure. Shortness of breath. Follow-up. COMPARISON: Chest 07/15/2020. Chest CT 12/23/2021. FINDINGS: No pneumothorax. No pleural effusions. The heart remains mildly enlarged. There is mild ayaan tral pulmonary vascular congestion without overt edema. There is a right-sided pacemaker/defibrillato r again noted. There is mild elevation of the right hemidiaphragm, unchanged. Distal right clavicle f racture again noted. Right first and second rib fractures are better appreciated on the prior chest C T. IMPRESSION: 1. Cardiomegaly with mild central pulmonary vascular congestion without overt edema. 2. Distal right clavicle fracture again noted. The right first and second rib fractures are better ap preciated on the recent chest CT. ACT 112: Negative or not required by law. Electronically signed by: David Islas M.D. 12/27/2021 4:57 PM
--- NOTE | 2021-12-27 17:28 | Hospitalist Progress Note ---
Date of Service December 27, 2021 Assessment & Plan (1) Syncope: Plan: Syncope H/O Trifascicular block S/P Pacemaker H/O NSVT, P. Atrial flutter, Pacemaker dysfunction Likely secondary to orthostatic hypotension --CT head:No acute intracranial abnormality or calvarial fracture Blood pressure improved by holding Lasix, decreasing metoprolol dose. Pacemaker interrogated Given history of NSVT, metoprolol continued at 12.5 mg BID Appreciate cardiology input Monitor electrolytes and replace as needed Monitor BP/Telemetry for arrhythmias Plan to resume metoprolol back to 25 mg twice daily if BP tolerates BP better today Acute impacted mildly displaced subcapital right femoral neck fracture Acute intra-articular mildly displaced fracture of the distal right clavicle Acute nondisplaced fractures of the right first and second ribs Mild superior endplate compression at T1 without retropulsion--likely chronic Secondary to Fall S/P right hip cemented hemiarthroplasty by Dr. Dee on 12/24/2021 Postoperative blood loss anemia Fall precautions Pain control Nonoperative sling of RUE for comfort Minimize narcotic use for confusion as able Needs follow-up with orthopedics upon discharge Ortho recommends aspirin 81 mg twice a day for DVT prophylaxis for 6 weeks Continue PT/OT S/P 1 unit PRBCs Hb 8.7 today Monitor CBC RAS on CKD IV Likely ATN Cr 3.84 Monitor renal function Avoid nephrotoxic agents as able IV fluids as per Nephrology Hyponatremia In setting of RAS on CKD Sodium 124 Appreciate Nephrology Input Monitor sodium levels IV lasix/Fluids per Nephrology Monitor Volume status Lactic acidosis No obvious source of infection Repeat lactate levels normalized with IV fluids Hypokalemia Replace electrolytes as needed Chronic systolic heart failure EF 50%, TTE 2021 Currently seemed to be Euvolemic Home Diuretics held for now Monitor volume status Presumptive CAD Continue aspirin, Lipitor, metoprolol DM II HbA1C:6.18 Oct 2021 Hold PO meds Continue ISS per protocol Monitor BGs Anemia of chronic disease No obvious bleeding issues Monitor CBC DVT Px: SCDs/Teds Aspirin 81 mg BID Code Status Full code Admission and Anticipated Discharge Date Admission Date: December 23, 2021 Subjective Patient is seen and examined at bedside States having hip pain after having PT earlier today Discussed with patient's son at bedside Also reports constipation No other complaints Denies any chest pain, dyspnea, dizziness, nausea, abdominal pain Review of Systems Review of Systems: All systems reviewed & are unremarkable except as noted in Subjective Physical Exam Physical Exam: Physical Exam: Vitals signs as noted above General Appearance:Moderately built and nourished, no apparent distress Head: normocephalic, Atraumatic Eyes: normal inspection, EOMI Neck: supple, Trachea midline Respiratory/Chest: Normal breath sounds, CTA, No accessory muscle use Cardiovascular: S1, S2, + murmur, + Pacer Abdomen/GI:Soft, Non tender, Bowel sounds present Extremities/Musculoskeletal:normal inspection, no edema, right hip surgical site in dressing, tender R clavicle mildly tender Neurologic/Psych:AAOX3, grossly no focal neurological deficits Skin: normal color, warm Results & Data Results & Data ([facility]) Vital Signs (Past 12 Hours) Vital Signs Temp Pulse Pulse Resp BP Pulse Ox Pulse Ox 12/27/21 16:16 36.9 C 70 18 126/78 94 12/27/21 15:52 66 12/27/21 13:00 93 12/27/21 12:01 36.8 C 70 18 123/79 97 12/27/21 10:45 12/27/21 09:00 92 12/27/21 07:34 70 12/27/21 06:40 36.7 C 70 18 137/72 96 O2 Del Method O2 Del Method O2 Flow Rate O2 Flow Rate 12/27/21 16:16 2 12/27/21 15:52 12/27/21 13:00 Nasal Cannula 1 12/27/21 12:01 Nasal Cannula 1 12/27/21 10:45 Nasal Cannula 1 12/27/21 09:00 Nasal Cannula 1 12/27/21 07:34 12/27/21 06:40 Nasal Cannula 1 Laboratory Results Short CBC 12/27/21 Range/Units 08:22 WBC 10.57 (4.8-10.8) K/ul Hgb 8.7 L (14.0-18.0) g/dl Hct 26.6 L (40.1-51.0) % Plt Count 153 (130-400) K/uL BMP 12/27/21 12/27/21 12/27/21 08:22 10:20 14:06 Sodium 124 L 124 L 123 L Potassium 4.9 5.0 Chloride 94 L 93 L Carbon Dioxide 22 22 BUN 73 H 76 H Creatinine 3.84 H D 3.82 H Glucose 126 H 144 H Calcium 8.0 L 7.9 L
[2021-12-27 18:53] LABS: BUN Creatinine Ratio 20.4 (10-20); Calcium 8.1 mg/dl (8.5-10.1); Creatinine Clr Calc Pharmacy 17.9 ml/min; Est GFR (African American) 16.4 ml/min; Est GFR (Non-African American) 14.1 ml/min; Potassium 5.1 mmol/L (3.5-5.1)
[2021-12-27] MEDS: ATORVASTATIN 40 MG TAB PO SCH (20:40)
[2021-12-27] MEDS: FUROSEMIDE 40 MG/4 ML VIAL IV SCH (20:41)
[2021-12-27 23:14] LABS: BUN Creatinine Ratio 21.9 (10-20); Calcium 8.1 mg/dl (8.5-10.1); Creatinine Clr Calc Pharmacy 18.2 ml/min; Est GFR (African American) 16.7 ml/min; Est GFR (Non-African American) 14.4 ml/min; Potassium 4.9 mmol/L (3.5-5.1)
[2021-12-28] MEDS: MULTIVITAMIN TAB PO SCH (07:28)
[2021-12-28] MEDS: ASPIRIN 81 MG ECTAB PO SCH ×2 (07:28→20:32)
[2021-12-28] MEDS: FUROSEMIDE 40 MG/4 ML VIAL IV SCH ×3 (07:29→20:32)
[2021-12-28] MEDS: allopurinoL 300 MG TAB PO SCH (07:29)
[2021-12-28] MEDS: METOPROLOL SUCC 25MG EXT REL TAB PO SCH ×2 (07:29→20:32)
[2021-12-28 08:12] LABS: Hematocrit (blood only) 26.2 % (40.1-51.0); Hemoglobin 8.6 g/dl (14.0-18.0); Mean Corpuscular Hemoglobin 26.1 pg (25.0-34.0); Mean Corpuscular Hgb Conc 32.8 g/dL (32.0-36.0); Mean Corpuscular Volume 79.4 fL (80.0-100.0); Mean Platelet Volume 11.1 fL (9.4-12.4); Platelet Count 164 K/uL (130-400); RDW Coefficient of Variation 18.7 % (11.5-14.5); RDW Standard Deviation 53.2 fL (36.4-46.3); White Blood Count 10.93 K/ul (4.8-10.8)
[2021-12-28] MEDS: oxyCODONE HCL IR 5 MG TAB (IMMEDIATE RELEASE) PO PRN ×2 (08:41→18:21)
[2021-12-28 08:52] LABS: BUN Creatinine Ratio 22.2 (10-20); Calcium 8.1 mg/dl (8.5-10.1); Creatinine Clr Calc Pharmacy 18.3 ml/min; Est GFR (African American) 16.8 ml/min; Est GFR (Non-African American) 14.5 ml/min; Potassium 4.7 mmol/L (3.5-5.1)
[2021-12-28] MEDS: INSULIN ASPART PER UNIT SC SCH ×4 (09:07→20:23)
--- NOTE | 2021-12-28 11:48 | Progress Notes ---
DATE OF SERVICE: 12/28/2021. SUBJECTIVE: An 81-year-old gentleman now postop day 4 from a right cemented bipolar hip arthroplasty for fracture. He is doing okay. Still having a decent amount of pain. Having difficulty mobilizin g. No new complaints. His shoulder is feeling pretty good. OBJECTIVE: VITAL SIGNS: Temperature is 36.4. Vital signs are stable. PHYSICAL EXAMINATION: GENERAL: Shows a pleasant, elderly male. He is sitting up in bed, talking to his and looks com fortable. EXTREMITIES: Examination of the right hip reveals dressing to be clean, dry and intact. Leg lengths were equal. He can dorsiflex and plantarflex his foot appropriately. Examination of the right shoulder reveals some mild swelling. He has got some swelling of the entire upper extremity. He can move his arm pretty normally. Minimal pain. LABORATORY DATA: Hemoglobin 8.6. Hematocrit 26.2. ASSESSMENT: An 81-year-old gentleman with multiple medical comorbidities, now 4 days out from a righ t cemented bipolar hip arthroplasty for fracture. Orthopedically, he is doing okay. Clavicle fractu re, stable. PLAN: 1. DVT prophylaxis includes thigh-high TEDs, SCDs, and aspirin twice a day. 2. PT/OT. He can weight bear as tolerated on the right lower extremity. He can use his right arm a s tolerated as well. He can use this for weightbearing with a walker. 3. Pain control, doing okay with current pain regimen. 4. Medical management as per the medicine service. 5. Disposition: He is orthopedically okay for discharge any time when medically stable. I need to see him back in 2-3 weeks out from surgery date. Any orthopedic questions can be directed to me at . Job ID: [id number]
--- NOTE | 2021-12-28 13:37 | Nephrology Progress Note ---
Date of Service December 28, 2021 Assessment & Plan Admission and Anticipated Discharge Date Admission Date: December 23, 2021 Subjective S---made lot more urine after lasix. Labs slightly better. No major SOB PHYSICAL EXAMINATION: GENERAL: Elderly white male who is not in any apparent respiratory distress. HEENT: Mucous membranes are moist. NECK: Supple. CHEST: Bilaterally clear to auscultation. CARDIOVASCULAR: S1 and S2, regular. ABDOMEN: Soft, nontender. EXTREMITIES: Show trace edema. LABORATORY TEST: Creat down a bit today. na up a bit. CT chest was done at the time of admission and shows a fracture of the right hip and the right clavicle. No tumor, pneumothorax, cardiomegaly. Urine sediment done at the time of admission showed a specific gravity of 1.008, and was very bland. ASSESSMENT AND PLAN: An 81-year-old male with history of CKD IV, with a baseline creatinine already quite elevated at high 2s, admitted following an episode of syncope, which led to fracture of the right hip as well as clavicle. He was found unresponsive by his after he fell at night. Now, he has acute renal failure with a rising creatinine as well as worsening hyponatremia, for which I have been consulted. 1. Acute renal failure: This is likely secondary to Acute tubular Ischemia in the setting of intermittent severe hypotension as well as significant hemodynamic changes related with fall, fracture, surgery, anesthesia and multiple readings of hypotension with blood pressure in the 80s. Given 25+ years of diabetes as well as preexisting CKD IV, he is extremely susceptible to episodes of renal failure.Creat down a bit today so hopefully RAS has peaked. CXR shows Pulm edema so have stopped iv fluid and continue lasix. urine na can be low in Pulm edema. 2. Hyponatremia. This is in the setting of acute renal failure on background CKD IV and now Also Pulm edema. . Continue lasix 40 iv tid for now. Check [facility] twice daily Results & Data ([facility]) Vital Signs (Past 12 Hours) Vital Signs Temp Pulse Pulse Resp BP Pulse Ox O2 Del Method 12/28/21 11:33 37.0 C 64 18 104/64 95 Room Air 12/28/21 07:48 36.4 C L 67 18 127/71 92 12/28/21 07:21 66 12/28/21 04:00 36.7 C 70 18 119/70 92 Room Air
[2021-12-28] MEDS ORDERED: POLYETHYLENE (MIRALAX) 17 GM PACK PO ONE (14:47)
[2021-12-28 14:58] LABS: BUN Creatinine Ratio 23.2 (10-20); Calcium 8.3 mg/dl (8.5-10.1); Creatinine Clr Calc Pharmacy 17.5 ml/min; Est GFR (Non-African American) 13.8 ml/min; Potassium 4.5 mmol/L (3.5-5.1)
--- NOTE | 2021-12-28 18:05 | Hospitalist Progress Note ---
Date of Service December 28, 2021 Assessment & Plan (1) Syncope: Plan: Syncope H/O Trifascicular block S/P Pacemaker H/O NSVT, P. Atrial flutter, Pacemaker dysfunction Likely secondary to orthostatic hypotension --CT head:No acute intracranial abnormality or calvarial fracture Blood pressure improved by holding Lasix, decreasing metoprolol dose. Pacemaker interrogated Given history of NSVT, metoprolol continued at 12.5 mg BID Appreciate cardiology input Monitor electrolytes and replace as needed Monitor BP/Telemetry for arrhythmias Plan to resume metoprolol back to 25 mg twice daily if BP tolerates Continue current medications BP still relatively low Acute impacted mildly displaced subcapital right femoral neck fracture Acute intra-articular mildly displaced fracture of the distal right clavicle Acute nondisplaced fractures of the right first and second ribs Mild superior endplate compression at T1 without retropulsion--likely chronic Secondary to Fall S/P right hip cemented hemiarthroplasty by Dr. Dee on 12/24/2021 Postoperative blood loss anemia Fall precautions Pain control Nonoperative sling of RUE for comfort Minimize narcotic use for confusion as able Needs follow-up with orthopedics upon discharge Ortho recommends aspirin 81 mg twice a day for DVT prophylaxis for 6 weeks Continue PT/OT S/P 1 unit PRBCs Hb 8.6 today Monitor CBC RAS on CKD IV Likely ATN Cr 3.84 Monitor renal function Avoid nephrotoxic agents as able IV fluids/Diuretics as per Nephrology Hyponatremia In setting of RAS on CKD Sodium 124 Appreciate Nephrology Input Monitor sodium levels IV lasix/Fluids per Nephrology Monitor Volume status Lactic acidosis No obvious source of infection Repeat lactate levels normalized with IV fluids Hypokalemia Replace electrolytes as needed Chronic systolic heart failure EF 50%, TTE 2021 Currently seemed to be Euvolemic Home Diuretics held for now Monitor volume status Presumptive CAD Continue aspirin, Lipitor, metoprolol DM II HbA1C:6.18 Oct 2021 Hold PO meds Continue ISS per protocol Monitor BGs Anemia of chronic disease No obvious bleeding issues Monitor CBC DVT Px: SCDs/Teds Aspirin 81 mg BID Code Status Full code Admission and Anticipated Discharge Date Admission Date: December 23, 2021 Subjective Patient is seen and examined at bedside No significant change from yesterday Still has constipation Right hip pain is controlled Discussed with nephrology today Also discussed with patient's family at bedside Denies any chest pain, dyspnea, dizziness, nausea, abdominal pain Review of Systems Review of Systems: All systems reviewed & are unremarkable except as noted in Subjective Physical Exam Physical Exam: Physical Exam: Vitals signs as noted above General Appearance:Moderately built and nourished, no apparent distress Head: normocephalic, Atraumatic Eyes: normal inspection, EOMI Neck: supple, Trachea midline Respiratory/Chest: Normal breath sounds, CTA, No accessory muscle use Cardiovascular: S1, S2, + murmur, + Pacer Abdomen/GI:Soft, Non tender, Bowel sounds present Extremities/Musculoskeletal:normal inspection, no edema, right hip surgical site in dressing, tender R clavicle mildly tender Neurologic/Psych:AAOX3, grossly no focal neurological deficits Skin: normal color, warm Results & Data Results & Data ([facility]) Vital Signs (Past 12 Hours) Vital Signs Temp Pulse Pulse Resp BP Pulse Ox O2 Del Method 12/28/21 15:58 37.1 C 70 18 109/66 93 Room Air 12/28/21 15:11 72 12/28/21 11:33 37.0 C 64 18 104/64 95 Room Air 12/28/21 07:48 36.4 C L 67 18 127/71 92 12/28/21 07:21 66 Laboratory Results Short CBC 12/28/21 Range/Units 07:25 WBC 10.93 H (4.8-10.8) K/ul Hgb 8.6 L (14.0-18.0) g/dl Hct 26.2 L (40.1-51.0) % Plt Count 164 (130-400) K/uL BMP 12/27/21 12/27/21 12/28/21 18:07 22:39 07:25 Sodium 124 L 123 L 125 L Potassium 5.1 4.9 4.7 Chloride 93 L 92 L 94 L Carbon Dioxide 23 23 23 BUN 77 H 81 H 82 H Creatinine 3.77 H 3.70 H 3.69 H Glucose 152 H 146 H 127 H Calcium 8.1 L 8.1 L 8.1 L 12/28/21 14:27 Sodium 124 L Potassium 4.5 Chloride 92 L Carbon Dioxide 24 BUN 89 H Creatinine 3.84 H Glucose 177 H Calcium 8.3 L
[2021-12-28] MEDS: SENNA 8.6 MG TAB PO SCH (20:32)
[2021-12-28] MEDS: ATORVASTATIN 40 MG TAB PO SCH (20:32)
[2021-12-29 02:19] LABS: BUN Creatinine Ratio 24.4 (10-20); Calcium 8.2 mg/dl (8.5-10.1); Creatinine Clr Calc Pharmacy 17.5 ml/min; Est GFR (Non-African American) 13.8 ml/min; Potassium 4.4 mmol/L (3.5-5.1)
[2021-12-29] MEDS: ASPIRIN 81 MG ECTAB PO SCH ×2 (07:52→20:40)
[2021-12-29] MEDS: METOPROLOL SUCC 25MG EXT REL TAB PO SCH ×2 (07:52→20:41)
[2021-12-29] MEDS: allopurinoL 300 MG TAB PO SCH (07:53)
[2021-12-29] MEDS: FUROSEMIDE 40 MG/4 ML VIAL IV SCH ×3 (07:53→20:43)
[2021-12-29] MEDS: MULTIVITAMIN TAB PO SCH (07:53)
[2021-12-29 07:59] LABS: Hematocrit (blood only) 27.9 % (40.1-51.0); Mean Corpuscular Hgb Conc 32.3 g/dL (32.0-36.0); Mean Corpuscular Volume 80.6 fL (80.0-100.0); Platelet Count 188 K/uL (130-400); RDW Coefficient of Variation 19.4 % (11.5-14.5); RDW Standard Deviation 54.8 fL (36.4-46.3); Red Blood Count 3.46 M/uL (4.63-6.08)
[2021-12-29 08:24] LABS: BUN Creatinine Ratio 25.8 (10-20); Calcium 8.3 mg/dl (8.5-10.1); Creatinine Clr Calc Pharmacy 17.6 ml/min; Est GFR (African American) 16.1 ml/min; Est GFR (Non-African American) 13.9 ml/min; Potassium 4.1 mmol/L (3.5-5.1)
[2021-12-29] MEDS: INSULIN ASPART PER UNIT SC SCH ×4 (08:39→20:46)
[2021-12-29] MEDS ORDERED: bisacodyL 10 MG SUPP PR ONE (10:14)
--- NOTE | 2021-12-29 11:25 | Nephrology Progress Note ---
Date of Service December 29, 2021 Assessment & Plan Admission and Anticipated Discharge Date Admission Date: December 23, 2021 Subjective Subjective S---made lot more urine after lasix--2050 ml. na up a bit. No major SOB PHYSICAL EXAMINATION: GENERAL: Elderly white male who is not in any apparent respiratory distress. HEENT: Mucous membranes are moist. NECK: Supple. CHEST: Bilaterally clear to auscultation. CARDIOVASCULAR: S1 and S2, regular. ABDOMEN: Soft, nontender. EXTREMITIES: Show trace edema. LABORATORY TEST: Creat 3.[address] chest was done at the time of admission and shows a fracture of the right hip and the right clavicle. No tumor, pneumothorax, cardiomegaly. Urine sediment done at the time of admission showed a specific gravity of 1.008, and was very bland. ASSESSMENT AND PLAN: An 81-year-old male with history of CKD IV, with a baseline creatinine already quite elevated at high 2s, admitted following an episode of syncope, which led to fracture of the right hip as well as clavicle. He was found unresponsive by his after he fell at night. Now, he has acute renal failure with a rising creatinine as well as worsening hyponatremia, for which I have been consulted. 1. Acute renal failure: This is likely secondary to Acute tubular Ischemia in the setting of intermittent severe hypotension as well as significant hemodynamic changes related with fall, fracture, surgery, anesthesia and multiple readings of hypotension with blood pressure in the 80s. Given 25+ years of diabetes as well as preexisting CKD IV, he is extremely susceptible to episodes of renal failure.Creat about same last few days so RAS has peaked. continue lasix. urine na can be low in Pulm edema. Given that his baseline was already high 2's he may not even drop down to previous baseline but as long as it is stable we are ok. 2. Hyponatremia. This is in the setting of acute renal failure on background CKD IV and now Also Pulm edema. . Continue lasix 40 iv tid for now at least till tomorrow. . Check [facility] daily Results & Data ([facility]) Vital Signs (Past 12 Hours) Vital Signs Temp Pulse Pulse Resp BP Pulse Ox Pulse Ox 12/29/21 09:59 36.7 C 70 18 126/64 91 12/29/21 07:11 69 12/29/21 03:28 36.4 C L 69 18 132/72 99 12/29/21 01:00 93 O2 Del Method O2 Del Method 12/29/21 09:59 Room Air 12/29/21 07:11 12/29/21 03:28 Room Air 12/29/21 01:00 Room Air
[2021-12-29] MEDS: oxyCODONE HCL IR 5 MG TAB (IMMEDIATE RELEASE) PO PRN (12:02)
--- NOTE | 2021-12-29 14:46 | Hospitalist Progress Note ---
Date of Service December 29, 2021 Assessment & Plan (1) Syncope: Plan: Syncope H/O Trifascicular block S/P Pacemaker H/O NSVT, P. Atrial flutter, Pacemaker dysfunction Likely secondary to orthostatic hypotension --CT head:No acute intracranial abnormality or calvarial fracture Pacemaker interrogated Given history of NSVT, metoprolol continued at 12.5 mg BID Appreciate cardiology input Monitor electrolytes and replace as needed Monitor BP/Telemetry for arrhythmias Plan to resume metoprolol back to 25 mg twice daily if BP tolerates BP stable today Acute impacted mildly displaced subcapital right femoral neck fracture Acute intra-articular mildly displaced fracture of the distal right clavicle Acute nondisplaced fractures of the right first and second ribs Mild superior endplate compression at T1 without retropulsion--likely chronic Secondary to Fall S/P right hip cemented hemiarthroplasty by Dr. 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 Likely ATN Cr 3.8 today Monitor renal function Avoid nephrotoxic agents as able IV fluids/Diuretics as per Nephrology Hyponatremia In setting of RAS on CKD Sodium 123>126>127 Appreciate Nephrology Input Monitor sodium levels IV lasix/Fluids per Nephrology Monitor Volume status Lactic acidosis No obvious source of infection Repeat lactate levels normalized with IV fluids Hypokalemia Replace electrolytes as needed Chronic systolic heart failure EF 50%, TTE 2021 Currently seemed to be Euvolemic Home Diuretics held for now Monitor volume status Presumptive CAD Continue aspirin, Lipitor, metoprolol DM II HbA1C:6.18 Oct 2021 Hold PO meds Continue ISS per protocol Monitor BGs Anemia of chronic disease No obvious bleeding issues Monitor CBC DVT Px: SCDs/Teds Aspirin 81 mg BID Code Status Full code Disposition SNF as able Admission and Anticipated Discharge Date Admission Date: December 23, 2021 Subjective Patient is seen and examined at bedside Feels frustrated about prolonged hospitalization Reports Right hip pain Renal function is stable No BM today Denies any chest pain, dyspnea, dizziness, nausea, abdominal pain Tolerates diet Review of Systems Review of Systems: All systems reviewed & are unremarkable except as noted in Subjective Physical Exam Physical Exam: Physical Exam: Vitals signs as noted above General Appearance:Moderately built and nourished, no apparent distress Head: normocephalic, Atraumatic Eyes: normal inspection, EOMI Neck: supple, Trachea midline Respiratory/Chest: Normal breath sounds, CTA, No accessory muscle use Cardiovascular: S1, S2, + murmur, + Pacer Abdomen/GI:Soft, Non tender, Bowel sounds present Extremities/Musculoskeletal:normal inspection, no edema, right hip surgical site in dressing, tender R clavicle mildly tender Neurologic/Psych:AAOX3, grossly no focal neurological deficits Skin: normal color, warm Results & Data Results & Data ([facility]) Vital Signs (Past 12 Hours) Vital Signs Temp Pulse Pulse Resp BP Pulse Ox O2 Del Method 12/29/21 09:59 36.7 C 70 18 126/64 91 Room Air 12/29/21 07:11 69 12/29/21 03:28 36.4 C L 69 18 132/72 99 Room Air Laboratory Results Short CBC 12/29/21 Range/Units 07:41 WBC 13.00 H (4.8-10.8) K/ul Hgb 9.0 L (14.0-18.0) g/dl Hct 27.9 L (40.1-51.0) % Plt Count 188 (130-400) K/uL BMP 12/28/21 12/29/21 12/29/21 14:27 01:43 07:41 Sodium 124 L 126 L 127 L Potassium 4.5 4.4 4.1 Chloride 92 L 94 L 94 L Carbon Dioxide 24 21 22 BUN 89 H 94 H 99 H Creatinine 3.84 H 3.85 H 3.83 H Glucose 177 H 137 H 138 H Calcium 8.3 L 8.2 L 8.3 L
[2021-12-29 15:06] LABS: BUN Creatinine Ratio 25.8 (10-20); Calcium 8.3 mg/dl (8.5-10.1); Creatinine Clr Calc Pharmacy 17.2 ml/min; Est GFR (African American) 15.6 ml/min; Est GFR (Non-African American) 13.5 ml/min; Potassium 4.5 mmol/L (3.5-5.1)
--- NOTE | 2021-12-29 18:15 | Progress Notes ---
DATE OF NOTE: 12/29/2021 SUBJECTIVE: An 81-year-old gentleman with multiple medical comorbidities, now 5 days out from a righ t cemented hip arthroplasty for fracture. He has also got a nondisplaced distal clavicle fracture. He seems to be doing a bit better today. Pain is improving. Minimal shoulder pain. OBJECTIVE: VITAL SIGNS: Temperature 36.9. Vital signs are stable. GENERAL: Shows a pleasant, elderly male. He is lying in bed, looks pretty comfortable. EXTREMITIES: Examination of the right hip reveals dressing to be clean, dry and intact. Some modera te swelling. Leg lengths were equal. He is neurologically intact. Examination of the right shoulde r reveals some mild bruising and swelling. Minimal pain. No crepitance. Good shoulder motion. LABORATORY DATA: Hemoglobin 9.0. Hematocrit 27.9. ASSESSMENT: An 81-year-old gentleman with multiple medical comorbidities, now 5 days out from right cemented bipolar hip arthroplasty for fracture with a nondisplaced clavicle fracture. He seems to be improving daily. Multiple medical issues, which are getting sorted out. PLAN: 1. DVT prophylaxis including, TEDs, SCDs and we would recommend a baby aspirin twice a day for 6 wee ks. 2. PT/OT. He can weight bear as tolerated. He can put as much weight on his right shoulder as he f eels he can tolerate pain olivier. He does need to obey hip precautions. 3. Pain control, seems to be pretty comfortable. Limit narcotics to avoid confusion. 4. Medical management as per the medicine service. 5. Disposition: He is orthopedically okay for discharge any time medically stable. I need to see h im back in 2-3 weeks out from surgery date. Any orthopedic questions can be directed to me at [phone] . Job ID: [id number]
[2021-12-29] MEDS: SENNA 8.6 MG TAB PO SCH (20:40)
[2021-12-29] MEDS: ATORVASTATIN 40 MG TAB PO SCH (20:42)
[2021-12-29] MEDS: POLYETHYLENE (MIRALAX) 17 GM PACK PO SCH (20:49)
[2021-12-30 05:53] LABS: Hematocrit (blood only) 26.5 % (40.1-51.0); Hemoglobin 8.6 g/dl (14.0-18.0)
[2021-12-30 06:48] LABS: Creatinine Clr Calc Pharmacy 18.8 ml/min; Est GFR (African American) 17.1 ml/min; Est GFR (Non-African American) 14.8 ml/min; Potassium 3.6 mmol/L (3.5-5.1)
[2021-12-30] MEDS: METOPROLOL SUCC 25MG EXT REL TAB PO SCH ×2 (08:15→20:21)
[2021-12-30] MEDS: allopurinoL 300 MG TAB PO SCH (08:15)
[2021-12-30] MEDS: MULTIVITAMIN TAB PO SCH (08:16)
[2021-12-30] MEDS: FUROSEMIDE 40 MG/4 ML VIAL IV SCH ×3 (08:16→20:21)
[2021-12-30] MEDS: ASPIRIN 81 MG ECTAB PO SCH ×2 (08:16→20:19)
[2021-12-30] MEDS: INSULIN ASPART PER UNIT SC SCH ×4 (08:21→20:23)
--- NOTE | 2021-12-30 08:28 | Progress Notes ---
DATE OF SERVICE: 12/30/2021. SUBJECTIVE: An 81-year-old gentleman now postop day 6 from a right cemented bipolar hip arthroplasty for fracture. He has also got a right minimally displaced clavicle fracture. He is doing okay. No new complaints. Pain seems to be getting just a little bit better daily. He has not been doing a w hole lot of walking. OBJECTIVE: VITAL SIGNS: Temperature of 36.7. Vital signs are stable. GENERAL: Physical examination shows a pleasant, elderly male. He is lying in bed and looks pretty c omfortable this morning. EXTREMITIES: Examination of the right hip reveals dressing to be in place. Swelling stable. Leg le ngths are equal. Hip is located. He is neurologically intact. LABORATORY DATA: His hemoglobin is 8.6. ASSESSMENT: An 81-year-old gentleman postoperative day #6 from a right cemented bipolar hip arthropl asty for fracture. Orthopedically doing okay. He has had multiple medical issues, which seem to be slowly improving. PLAN: 1. DVT prophylaxis includes thigh-high TEDs, SCDs, and aspirin twice a day for 6 weeks. 2. PT/OT, weightbear as tolerated per right total hip protocol. Does need to obey hip precautions. 3. Pain control: Doing okay with current pain regimen. 4. Medical management: As per the medicine service. 5. Disposition: Orthopedically okay for discharge any time. I need to see him back 2-3 weeks out f rom surgery date. Any orthopedic questions can be directed to me at [phone]. Job ID: [id number]
[2021-12-30] MEDS: oxyCODONE HCL IR 5 MG TAB (IMMEDIATE RELEASE) PO PRN ×2 (12:27→20:18)
[2021-12-30] MEDS: POLYETHYLENE (MIRALAX) 17 GM PACK PO SCH ×2 (14:35→20:22)
--- NOTE | 2021-12-30 14:49 | Nephrology Progress Note ---
Date of Service December 30, 2021 Assessment & Plan Admission and Anticipated Discharge Date Admission Date: December 23, 2021 Subjective Subjective S---No new issues. Making urine and still has loredo. wants to get out of hospital soon. PHYSICAL EXAMINATION: GENERAL: Elderly white male who is not in any apparent respiratory distress. HEENT: Mucous membranes are moist. NECK: Supple. CHEST: Bilaterally clear to auscultation. CARDIOVASCULAR: S1 and S2, regular. ABDOMEN: Soft, nontender. EXTREMITIES: No edema in left and trace in rt. . LABORATORY TEST: na [address] chest was done at the time of admission and shows a fracture of the right hip and the right clavicle. No tumor, pneumothorax, cardiomegaly. Urine sediment done at the time of admission showed a specific gravity of 1.008, and was very bland. ASSESSMENT AND PLAN: An 81-year-old male with history of CKD IV, with a baseline creatinine already quite elevated at high 2s, admitted following an e pisode of syncope, which led to fracture of the right hip as well as clavicle. He was found unresponsive by his after he fell at night. Now, he has acute renal failure with a rising creatinine as well as worsening hyponatremia, for which I have been consulted. 1. Acute renal failure: This is likely secondary to Acute tubular Ischemia in the setting of intermittent severe hypotension as well as significant hemodynamic changes related with fall, fracture, surgery, anesthesia and multiple readings of hypotension with blood pressure in the 80s. Given 25+ years of diabetes as well as preexisting CKD IV, he is extremely susceptible to episodes of renal failure.Creat about same last few days so RAS has peaked. continue lasix. urine na can be low in Pulm edema. Given that his baseline was already high 2's he may not even drop down to previous baseline but as long as it is stable we are ok. Lower lasix to 40 iv bid. 2. Hyponatremia. This is in the setting of acute renal failure on background CKD IV and now Also Pulm edema. . Continue lasix 40 iv bid for now. FFR 1200 ml per day Check [facility] daily Results & Data ([facility]) Vital Signs (Past 12 Hours) Vital Signs Temp Pulse Pulse Resp BP Pulse Ox O2 Del Method 12/30/21 11:38 36.6 C 70 19 117/68 95 Room Air 12/30/21 08:14 36.9 C 67 18 124/71 93 Room Air 12/30/21 07:15 Room Air 12/30/21 07:12 70 12/30/21 04:00 36.7 C 69 20 126/66 94 Room Air
--- NOTE | 2021-12-30 15:38 | Hospitalist Progress Note ---
Date of Service December 30, 2021 Assessment & Plan (1) Syncope: Plan: Syncope H/O Trifascicular block S/P Pacemaker H/O NSVT, P. Atrial flutter, Pacemaker dysfunction Likely secondary to orthostatic hypotension --CT head:No acute intracranial abnormality or calvarial fracture Pacemaker interrogated Given history of NSVT, metoprolol continued at 12.5 mg BID Appreciate cardiology input Monitor electrolytes and replace as needed Monitor BP/Telemetry for arrhythmias Plan to resume metoprolol back to 25 mg twice daily if BP tolerates Monitor BP Acute impacted mildly displaced subcapital right femoral neck fracture Acute intra-articular mildly displaced fracture of the distal right clavicle Acute nondisplaced fractures of the right first and second ribs Mild superior endplate compression at T1 without retropulsion--likely chronic Secondary to Fall S/P right hip cemented hemiarthroplasty by Dr. 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 Likely ATN In setting of Volume overload Cr 3.6 today Monitor renal function Avoid nephrotoxic agents as able IV fluids/Diuretics as per Nephrology IV lasix dose decreased to 40mg BID today ' Hyponatremia In setting of RAS on CKD , Volume overload Sodium 123>126>127 Appreciate Nephrology Input Monitor sodium levels IV Lasix/Fluids per Nephrology Monitor Volume status Lactic acidosis No obvious source of infection Repeat lactate levels normalized with IV fluids Hypokalemia Replace electrolytes as needed Chronic systolic heart failure EF 50%, TTE 2021 Currently seemed to be Euvolemic Home Diuretics held for now Monitor volume status Presumptive CAD Continue aspirin, Lipitor, metoprolol DM II HbA1C:6.18 Oct 2021 Hold PO meds Continue ISS per protocol Monitor BGs Anemia of chronic disease No obvious bleeding issues Monitor CBC DVT Px: SCDs/Teds Aspirin 81 mg BID Code Status Full code Disposition SNF as able Admission and Anticipated Discharge Date Admission Date: December 23, 2021 Subjective Patient is seen and examined at bedside No new complaints Persistent Right hip pain especially with PT Denies any chest pain, dyspnea, dizziness, nausea, abdominal pain Review of Systems Review of Systems: All systems reviewed & are unremarkable except as noted in Subjective Physical Exam Physical Exam: Physical Exam: Vitals signs as noted above General Appearance:Moderately built and nourished, no apparent distress Head: normocephalic, Atraumatic Eyes: normal inspection, EOMI Neck: supple, Trachea midline Respiratory/Chest: Normal breath sounds, CTA, No accessory muscle use Cardiovascular: S1, S2, + murmur, + Pacer Abdomen/GI:Soft, Non tender, Bowel sounds present Extremities/Musculoskeletal:normal inspection, no edema, right hip surgical site in dressing, tender R clavicle mildly tender Neurologic/Psych:AAOX3, grossly no focal neurological deficits Skin: normal color, warm Results & Data Results & Data ([facility]) Vital Signs (Past 12 Hours) Vital Signs Temp Pulse Pulse Resp BP Pulse Ox O2 Del Method 12/30/21 11:38 36.6 C 70 19 117/68 95 Room Air 12/30/21 08:14 36.9 C 67 18 124/71 93 Room Air 12/30/21 07:15 Room Air 12/30/21 07:12 70 12/30/21 04:00 36.7 C 69 20 126/66 94 Room Air Laboratory Results Short CBC 12/30/21 Range/Units 05:35 Hgb 8.6 L (14.0-18.0) g/dl Hct 26.5 L (40.1-51.0) % BMP 12/30/21 05:35 Sodium 127 L Potassium 3.6 Chloride 95 L Carbon Dioxide 23 BUN 98 H Creatinine 3.63 H Glucose 145 H Calcium 8.0 L
[2021-12-30] MEDS: ATORVASTATIN 40 MG TAB PO SCH (20:20)
[2021-12-30] MEDS: SENNA 8.6 MG TAB PO SCH (20:22)
[2021-12-31] MEDS ORDERED: CALCIUM CARBONATE 500 MG CHEWABLE TAB PO PRN (00:36)
[2021-12-31 06:18] LABS: Hematocrit (blood only) 26.7 % (40.1-51.0); Hemoglobin 8.8 g/dl (14.0-18.0); Mean Platelet Volume 11.2 fL (9.4-12.4); Platelet Count 188 K/uL (130-400); RDW Coefficient of Variation 20.2 % (11.5-14.5); RDW Standard Deviation 55.4 fL (36.4-46.3); Red Blood Count 3.38 M/uL (4.63-6.08); White Blood Count 11.29 K/ul (4.8-10.8)
[2021-12-31 06:52] LABS: BUN Creatinine Ratio 31.5 (10-20); Creatinine Clr Calc Pharmacy 21.9 ml/min; Est GFR (African American) 20.7 ml/min; Est GFR (Non-African American) 17.8 ml/min; Potassium 3.4 mmol/L (3.5-5.1)
[2021-12-31] MEDS: ASPIRIN 81 MG ECTAB PO SCH (08:00)
[2021-12-31] MEDS: allopurinoL 300 MG TAB PO SCH (08:00)
[2021-12-31] MEDS: MULTIVITAMIN TAB PO SCH (08:00)
[2021-12-31] MEDS: METOPROLOL SUCC 25MG EXT REL TAB PO SCH (08:00)
[2021-12-31] MEDS: POLYETHYLENE (MIRALAX) 17 GM PACK PO SCH (08:01)
[2021-12-31] MEDS: FUROSEMIDE 40 MG/4 ML VIAL IV SCH (08:01)
[2021-12-31] MEDS: INSULIN ASPART PER UNIT SC SCH ×2 (08:07→12:51)
--- NOTE | 2021-12-31 10:11 | Hospitalist Progress Note ---
Date of Service December 31, 2021 Assessment & Plan (1) Syncope: Plan: Syncope H/O Trifascicular block S/P Pacemaker H/O NSVT, P. Atrial flutter, Pacemaker dysfunction Likely secondary to orthostatic hypotension --CT head:No acute intracranial abnormality or calvarial fracture Pacemaker interrogated Given history of NSVT, metoprolol continued at 12.5 mg BID Appreciate cardiology input Monitor electrolytes and replace as needed Monitor BP/Telemetry for arrhythmias Plan to resume metoprolol back to 25 mg twice daily if BP tolerates Monitor BP Acute impacted mildly displaced subcapital right femoral neck fracture Acute intra-articular mildly displaced fracture of the distal right clavicle Acute nondisplaced fractures of the right first and second ribs Mild superior endplate compression at T1 without retropulsion--likely chronic Secondary to Fall S/P right hip cemented hemiarthroplasty by Dr. 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 Likely ATN In setting of Volume overload Cr 3.6 today Monitor renal function Avoid nephrotoxic agents as able IV fluids/Diuretics as per Nephrology IV lasix dose decreased to 40mg BID today ' Hyponatremia In setting of RAS on CKD , Volume overload Sodium 123>126>127 Appreciate Nephrology Input Monitor sodium levels IV Lasix/Fluids per Nephrology Monitor Volume status Lactic acidosis No obvious source of infection Repeat lactate levels normalized with IV fluids Hypokalemia Replace electrolytes as needed Chronic systolic heart failure EF 50%, TTE 2021 Currently seemed to be Euvolemic Home Diuretics held for now Monitor volume status Presumptive CAD Continue aspirin, Lipitor, metoprolol DM II HbA1C:6.18 Oct 2021 Hold PO meds Continue ISS per protocol Monitor BGs Anemia of chronic disease No obvious bleeding issues Monitor CBC DVT Px: SCDs/Teds Aspirin 81 mg BID Code Status Full code Disposition SNF as able Admission and Anticipated Discharge Date Admission Date: December 23, 2021 Subjective Patient is seen and examined at bedside No new complaints Persistent Right hip pain especially with PT Denies any chest pain, dyspnea, dizziness, nausea, abdominal pain Results & Data Results & Data ([facility]) Vital Signs (Past 12 Hours) Vital Signs Temp Pulse Pulse Resp BP Pulse Ox O2 Del Method 12/31/21 08:07 Room Air 12/31/21 07:43 36.9 C 73 18 122/76 94 Room Air 12/31/21 07:14 71 12/31/21 04:02 36.3 C L 73 18 137/71 93 Room Air 12/30/21 22:15 70 12/30/21 23:13 37.0 C 71 20 131/68 94 Room Air Laboratory Results Short CBC 12/31/21 Range/Units 05:24 WBC 11.29 H (4.8-10.8) K/ul Hgb 8.8 L (14.0-18.0) g/dl Hct 26.7 L (40.1-51.0) % Plt Count 188 (130-400) K/uL BMP 12/31/21 05:24 Sodium 127 L Potassium 3.4 L Chloride 93 L Carbon Dioxide 24 BUN 98 H Creatinine 3.11 H D Glucose 141 H Calcium 8.0 L Medications Administered Current Inpatient Medications Acetaminophen (Acetaminophen 325 Mg Tab) 650 mg PO Q6H PRN PRN Reason: Pain or Fever Stop: 01/25/22 09:20 Last Admin: 12/26/21 11:07 Dose: 650 mg Allopurinol (Allopurinol 300 Mg Tab) 300 mg PO DAILY FAY Stop: 01/22/22 09:02 Last Admin: 12/31/21 08:00 Dose: 300 mg Aspirin (Aspirin 81 Mg Ectab) 81 mg PO BID FAY Stop: 01/24/22 20:59 Last Admin: 12/31/21 08:00 Dose: 81 mg Atorvastatin Calcium (Atorvastatin 40 Mg Tab) 40 mg PO HS FAY Stop: 01/22/22 20:59 Last Admin: 12/30/21 20:20 Dose: 40 mg Bisacodyl (Bisacodyl 10 Mg Supp) 10 mg KS DAILY PRN PRN Reason: Constipation Stop: 01/22/22 09:02 Calcium Carbonate (Calcium Carbonate 500 Mg Chewable Tab) 500 mg PO BID PRN PRN Reason: Indigestion Stop: 01/30/22 00:35 Last Admin: 12/31/21 00:42 Dose: 500 mg Dextrose (Dextrose 50% 50 Ml Syringe) 25 - 50 ml IV UD PRN; Protocol PRN Reason: Hypoglycemia Protocol Stop: 01/22/22 09:02 Docusate Sodium (Docusate Sodium 100 Mg Cap) 100 mg PO BID PRN PRN Reason: Constipation Stop: 01/25/22 20:59 Furosemide (Furosemide 40 Mg/4 Ml Vial) 40 mg IV BID FAY Stop: 01/29/22 20:59 Last Admin: 12/31/21 08:01 Dose: 40 mg Glucagon (Glucagon For Inj 1 Mg Vial) 1 mg SQ UD PRN; Protocol PRN Reason: Hypoglycemia Protocol Stop: 01/22/22 09:02 Glucose (Glucose 40% Gel 15 Gm Tube) 15 - 30 gm PO UD PRN; Protocol PRN Reason: Hypoglycemia Protocol Stop: 01/22/22 09:02 Glucose (Glucose 10 Tab/Tube) 4 - 8 tab PO UD PRN; Protocol PRN Reason: Hypoglycemia Treatment Stop: 01/22/22 09:02 Hydromorphone HCl (Hydromorphone Inj 0.5 Mg/0.5 Ml Syr) 0.25 mg IV Q3H PRN PRN Reason: Pain Stop: 01/06/22 07:10 Promethazine HCl 12.5 mg/ (Sodium Chloride) 50.5 mls @ 202 mls/hr IV Q6H PRN PRN Reason: Nausea And Vomiting Stop: 01/22/22 07:10 Insulin Aspart (Insulin Aspart Per Unit) 0 units SC ACHS [facility] Stop: 01/24/22 11:29 Last Admin: 12/31/21 08:07 Dose: 2 units Metoprolol Succinate (Metoprolol Succ 25mg Ext Rel Tab) 12.5 mg PO BID [facility] Stop: 01/23/22 20:59 Last Admin: 12/31/21 08:00 Dose: 12.5 mg Miscellaneous (Carbohydrates For Hypoglycemia ) 15 - 30 gm PO UD PRN PRN Reason: Hypoglycemia Protocol Stop: 01/22/22 09:02 Multivitamins (Multivitamin Tab) 1 tab PO QAM FAY Stop: 01/22/22 08:59 Last Admin: 12/31/21 08:00 Dose: 1 tab Naloxone HCl (Naloxone Hcl 0.4 Mg/1 Ml Vial/Carp) 0.1 mg IV UD PRN PRN Reason: Opiate Overdose Stop: 01/22/22 09:02 Oxycodone HCl (Oxycodone Hcl Ir 5 Mg Tab (Immediate Release)) 5 mg PO Q4H PRN PRN Reason: Pain Stop: 01/06/22 07:10 Last Admin: 12/30/21 20:18 Dose: 5 mg Pioglitazone HCl (Pioglitazone Hcl 15 Mg Tab) 15 mg PO DAILY FAY Stop: 01/24/22 08:59 Last Admin: 12/27/21 08:05 Dose: 15 mg Polyethylene Glycol (Polyethylene (Miralax) 17 Gm Pack) 17 gm PO BID FAY Stop: 01/28/22 20:59 Last Admin: 12/31/21 08:01 Dose: 17 gm Sennosides (Senna 8.6 Mg Tab) 8.6 mg PO HS FAY Stop: 01/27/22 20:59 Last Admin: 12/30/21 20:22 Dose: 8.6 mg
[2021-12-31] MEDS: oxyCODONE HCL IR 5 MG TAB (IMMEDIATE RELEASE) PO PRN (10:17)
--- NOTE | 2021-12-31 10:45 | Nephrology Progress Note ---
Date of Service December 31, 2021 Assessment & Plan Admission and Anticipated Discharge Date Admission Date: December 23, 2021 Subjective Subjective S---No new issues. Making urine and on RA now. . wants to get out of hospital soon. PHYSICAL EXAMINATION: GENERAL: Elderly white male who is not in any apparent respiratory distress. HEENT: Mucous membranes are moist. NECK: Supple. CHEST: Bilaterally clear to auscultation. CARDIOVASCULAR: S1 and S2, regular. ABDOMEN: Soft, nontender. EXTREMITIES: No edema in left and trace in rt. . LABORATORY TEST: na 127 and creat downa bit. CT chest was done at the time of admission and shows a fracture of the right hip and the right clavicle. No tumor, pneumothorax, cardiomegaly. Urine sediment done at the time of admission showed a specific gravity of 1.008, and was very bland. ASSESSMENT AND PLAN: An 81-year-old male with history of CKD IV, with a baseline creatinine already quite elevated at high 2s, admitted following an episode of syncope, which led to fracture of the right hip as well as clavicle. He was found unresponsive by his after he fell at night. Now, he has acute renal failure with a rising creatinine as well as worsening hyponatremia, for which I have been consulted. 1. Acute renal failure: This is likely secondary to Acute tubular Ischemia in the setting of intermittent severe hypotension as well as significant hemodynamic changes related with fall, fracture, surgery, anesthesia and multiple readings of hypotension with blood pressure in the 80s. Given 25+ years of diabetes as well as preexisting CKD IV, he is extremely susceptible to episodes of renal failure.Creat about same last few days so RAS has peaked. continue lasix. urine na can be low in Pulm edema. Given that his baseline was already high 2's he may not even drop down to previous baseline but as long as it is stable we are ok. 2. Hyponatremia. This is in the setting of acute renal failure on background CKD IV and now Also Pulm edema. . Change to lasix 40 po bid for discharge. FFR 1200 ml per day Stable for discharge. Appears na stable. this might be his new baseline creat and the na f/u nephrology within 1 week Results & Data ([facility]) Vital Signs (Past 12 Hours) Vital Signs Temp Pulse Pulse Resp BP Pulse Ox O2 Del Method 12/31/21 08:07 Room Air 12/31/21 07:43 36.9 C 73 18 122/76 94 Room Air 12/31/21 07:14 71 12/31/21 04:02 36.3 C L 73 18 137/71 93 Room Air 12/30/21 23:13 37.0 C 71 20 131/68 94 Room Air
--- NOTE | 2021-12-31 15:10 | Discharge Summary ---
Discharge Summary Date of Service December 31, 2021 Admission HPI Per Admitting Provider History obtained from patient and records. Medical history significant for chronic systolic heart failure (EF 50%, TTE 2021), trifascicular block status post PPM, paroxysmal atrial flutter, presumptive CAD, hypertension, DM2 on oral medications, CRI (baseline creatinine 2s), chronic anemia (baseline hemoglobin 10-11), past tobacco abuse. Last confinement August 2021 for post polypectomy L GIB. Aspirin held on discharge but later resumed outpatient. Patient noted dizziness/lightheadedness on the upright position the last 2 weeks. No headache. No chest pain, no SOB. Unwitnessed syncopal event while getting up to go to the bathroom last night. Patient found on the floor unresponsive by . Patient subsequently woke up. Achy right hip pain noted worse on movement. No headache, no chest pain, no SOB, no tongue injury, no urinary incontinence. Patient denies abdominal pain, black, bloody stools. Initial SBP upon arrival of EMS 70s. Patient brought to the ER for evaluation. Medical History as above Surgical History : Vascular procedure, PPM, appendectomy Family History : DM, ESRD, heart disease Personal/Social history : Past tobacco abuse, no EtOH intake, retired biological science technician fish, lives with Principal Dx & Hospital Course #1 = Principal Diagnosis Updated Medication List Medication Instructions Recorded Confirmed Type allopurinol 300 mg tablet 300 mg PO DAILY 09/09/21 12/23/21 History atorvastatin 40 mg tablet 40 mg PO HS 09/09/21 12/23/21 History aspirin 81 mg PO DAILY 12/23/21 12/23/21 History multivitamin 1 tab PO DAILY 12/23/21 12/23/21 History furosemide 40 mg tablet 40 mg PO BID17 #60 tabs 12/31/21 Rx metoprolol succinate 25 mg 12.5 mg PO BID #60 tabs 12/31/21 Rx tablet,extended release 24 hr Hospital Stay Data Consultations 12/23/21 05:57 ED Decision to Admit Stat 12/23/21 09:03 Consult Cardiology Routine Consult Orthopedic Surgery Routine 12/27/21 09:35 Consult Nephrology Routine Procedures Performed Operation Date: 12/24/21 07:00 Actual Procedures p Right Hip Cemented Hemiarthroplasty(Right) - Cruz Dee MD Diagnostic Imagining Performed 12/23/21 03:47 CT abd pelvis IV con only Urgent CT cervical spine wo con Urgent CT chest diagnostic w con Urgent CT head/brain wo con Urgent Pending Results Patient Have Any Pending Studies at Discharge: No Discharge Instructions Given to Patient (Per Discharging Provider) ACTIVITY RECOMMENDATIONS: Physical Therapy: * Aggressive physical therapy is not usually needed. You will learn to take care of yourself safely and walk. * Follow the "Hip Precautions Instructions." * In some cases, the social media job titles at the hospital will arrange to have a therapist come to your house for the first couple of weeks to help you learn these skills. * You need to practice on your own or with the help of a family member as needed. * When you learn these skills, most of the therapy can be done on your own. Home Exercise: * You were shown a series of exercises in the hospital. Do these exercises three to four times each day including the exercises you were shown in physical therapy. Walking: * Get up and walk several times each day. For the first four weeks, try not to stand or walk for more than one hour at a time. If you do stand or walk for more than one hour, you will not hurt anything, but your leg will likely swell. * As you feel comfortable, you may change from the walker or crutches to a cane and then to independent walking. MEDICATIONS: New Medicine: * You will likely be taking one or more of these medicines: 1. Tramadol - Take, as directed, when you need it, every six hours to control your pain. 2. Aspirin - Thins your blood to lessen the chance of forming a blood clot. * The most common side effects of pain medicine and iron are nausea and constipation. If nausea or constipation is too much of a problem or if you have any questions about your new medicines or doses, call [facility] at [phone]. We will try to help you manage these issues. "VERY IMPORTANT TO READ AND REVIEW" Pain: * The immediate post-operative period after hip replacement surgery is often quite painful. * You are given a prescription for pain medicine. You should take it, as directed, when you need it, especially before physical therapy and before going to bed. Pain that interferes with sleep is very common and can last several months. * You will likely need pain medicine for the first two to four weeks. It will not stop all of the pain. The pain will lessen and as you feel better, you may change to milder pain medicine such as Tylenol. * The most common side effects of pain medicine are nausea and constipation, so don't take more than you need. SPECIAL CARE INSTRUCTIONS: TEDs/Elastic Stockings: * The white elastic stockings help limit swelling and prevent blood clots from forming in your legs. The more you wear them, the more they work. * Wear them for six weeks. Incision Site Care: * Remove dressing postoperative day 2 and then shower. Keep direct shower pressure off the incision site. * After showering, cover lorri with dry gauze and change daily or more frequently if the dressing is getting saturated with drainage. * May completely stop using bandage if wound is dry and no drainage * Lorri are removed between 2 and 3 weeks post-op. If your follow-up appointment is made before 2 weeks, please have your appointment re- scheduled. It is too early to remove the lorri. Prevention of Infection: * Take antibiotics one hour before any dental cleaning, dental work, urological procedure, gastrointestinal procedure or any invasive surgery in order to prevent your new joint from getting infected. * You may get the antibiotics from the doctor performing the procedure or you may call our office at before and we will call in a prescription to the pharmacy of your choice. Things to Watch For: * Drainage from the incision site that occurs more than one week after your surgery. * Severely increased leg pain or swelling. * Increased redness at the incision site. * Fever above 102 degrees Fahrenheit. * Unusual chest pain or shortness of breath. * Unusual pain or burning with urination. Call [facility] at with any of the above problems or if you have any questions about your medicines or recovery. FOLLOW UP VISIT: Make an appointment to see your doctor for approximately two weeks after surgery for a progress check and staple removal by calling the office at .
[2021-12-31] MEDS ORDERED: FUROSEMIDE 40 MG TAB PO SCH (17:00)
== END 2021-12-31 15:45 | DRG 521 ==
LOC: ED 03:04 → 2W 07:07 → SUATTDRO 07:07 → 2W 08:04
DX: Y92.019 Unspecified place in single-family (private) house as the place of occurrence of the external cause; I25.10 Atherosclerotic heart disease of native coronary artery without angina pectoris; E87.1 Hypo-osmolality and hyponatremia; I13.0 Hypertensive heart and chronic kidney disease with heart failure and stage 1 through stage 4 chronic kidney disease, or unspecified chronic kidney disease; E87.20 Acidosis, unspecified; I95.1 Orthostatic hypotension; I47.1 Supraventricular tachycardia; K21.9 Gastro-esophageal reflux disease without esophagitis; D63.1 Anemia in chronic kidney disease; E11.22 Type 2 diabetes mellitus with diabetic chronic kidney disease; Z95.810 Presence of automatic (implantable) cardiac defibrillator; N18.4 Chronic kidney disease, stage 4 (severe); I50.22 Chronic systolic (congestive) heart failure; N17.0 Acute kidney failure with tubular necrosis; E87.6 Hypokalemia; S42.021A Displaced fracture of shaft of right clavicle, initial encounter for closed fracture; Z68.35 Body mass index [BMI] 35.0-35.9, adult; D62 Acute posthemorrhagic anemia; S22.41XA Multiple fractures of ribs, right side, initial encounter for closed fracture; S80.01XA Contusion of right knee, initial encounter; E66.9 Obesity, unspecified; W19.XXXA Unspecified fall, initial encounter; I48.92 Unspecified atrial flutter; S72.011A Unspecified intracapsular fracture of right femur, initial encounter for closed fracture; Z83.3 Family history of diabetes mellitus; Z79.82 Long term (current) use of aspirin; M10.9 Gout, unspecified